=== PATIENT | female | born 1925 | race Caucasian/White ===

== ENCOUNTER 2016-08-18 00:11 | Inpatient (IN) | payer OTHER ==
[2016-08-18] MEDS ORDERED: ONDANSETRON 4 MG/2 ML VIAL ONE (00:33)
[2016-08-18] MEDS ORDERED: ONDANSETRON 4 MG/2 ML VIAL IVP ONE (00:34)
[2016-08-18] MEDS ORDERED: NS 1,000 ML IV ONE (00:34)
[2016-08-18 00:45] LABS: % IMMATURE GRANULYOCYTES 0.9 % (0.0-1.1); ABSOLUTE IMMATURE GRANULOCYTES 0.11 10^3/uL (0.00-0.10); ADD DIFF? NO; ADD MORPH? NO; ADD SCAN? NO; ATYPICAL LYMPHOCYTE FLAG 0 (0-99); FRAGMENT RBC FLAG 0 (0-99); HEMATOCRIT 43.7 % (38.0-47.0); HEMOGLOBIN 14.1 g/dL (12.6-16.3); LEFT SHIFT FLG 10 (0-99); LIPEMIA HEMOLYSIS FLAG 80 (0-99); MEAN CELL HEMOGLOBIN 30.6 pg (27.9-34.1); MEAN CELL HEMOGLOBIN CONCENTR. 32.3 g/dL (32.4-36.7); MEAN CELL VOLUME 94.8 fL (81.5-99.8); MEAN PLATELET VOLUME 10.5 fL (8.7-11.7); PLATELET CLUMPS FLAG 10 (0-99); PLATELET COUNT 243 10^3/uL (150-400); RED BLOOD CELL COUNT 4.61 10^6/uL (4.18-5.33); RED CELL DISTRIBUTION WIDTH 13.1 % (11.5-15.2)
[2016-08-18 00:55] LABS: ALANINE AMINOTRANSFERASE 28 IU/L (9-52); ALKALINE PHOSPHATASE 99 IU/L (38-126); ANION GAP 14 mEq/L (8-16); ASPARTATE AMINOTRANSFERASE 51 IU/L (14-46); BILIRUBIN,TOTAL 1.1 mg/dL (0.1-1.4); BILIRUBIN-CONJUGATED 0.7 mg/dL (0.0-0.5); BILIRUBIN-UNCONJUGATED 0.4 mg/dL (0.0-1.1); CALCIUM 10.5 mg/dL (8.5-10.4); CARBON DIOXIDE 21 mEq/l (22-31); CHLORIDE 102 mEq/L (97-110); GLOMERULAR FILTRATION RATE 52; GLUCOSE 169 mg/dL (70-100); POTASSIUM 4.4 mEq/L (3.5-5.2); SODIUM 137 mEq/L (134-144); SPECIMEN HEMOLYSIS 137; TOTAL PROTEIN 8.3 g/dL (6.3-8.2)
--- NOTE | 2016-08-18 00:59 | CPEKG ---
Heart Rate: 59 RR Interval: 1017 P-R Interval: 180 QRSD Interval: 94 QT Interval: 484 QTC Interval: 480 P [place]: 55 QRS [place]: 24 T Wave [place]: 40 EKG Severity - NORMAL ECG - EKG Impression: SINUS RHYTHM Electronically Signed By: Marcos Hutton 18-Aug-2016 05:57:08
[2016-08-18] MEDS ORDERED: IOPAMIDOL (ISOVUE-300) 100 ML BTL ONE (01:05)
[2016-08-18 01:10] LABS: TROPONIN I 0.124 ng/mL (0-0.034)
--- NOTE | 2016-08-18 01:33 | EDPHY ---
H & P Stated Complaint: at 2200 tonight vomiting/nausea Time Seen by Provider: 08/18/16 00:27 HPI/ROS: Chief Complaint: Vomiting HPI: 89-year-old female with a history of cholecystectomy in the past began vomiting at 10 o'clock this evening. She has vomited 6 or 7 times. No hematemesis. No diarrhea or constipation. Has not been on well recently. No fevers or chills. No chest pain shortness of breath. Has been complaining some mild abdominal discomfort. Family says that she does gotten more confused since vomiting the last couple times. She did not report any urinary symptoms increasing urgency or frequency recently. She has otherwise been in her normal state of health. ROS: 10 point Review of Systems is negative except as noted in the HPI. PMH: Cholecystectomy and hernia repair Medications: None Allergies: No known drug allergies Social History: No smoking, no alcohol, no recreational drug use Family History: non-contributory Physical Exam: Gen: Awake, Alert, No Distress HEENT: Nose: no rhinorrhea Eyes: PERRLA, EOMI Mouth: Moist mucosa Neck: Supple, no JVD Chest: nontender, mild bibasilar crackles Heart: S1, S2 normal, no murmur Abd: Soft, moderate diffuse tenderness worse in the left and right lower and suprapubic region, no guarding Back: no CVA tenderness, no midline tenderness Ext: no edema, non-tender Skin: no rash Neuro: CN II-XII intact, Sensation grossly intact, Strength 5/5 in bilateral upper and lower extremities - Personal History Current Tetanus/Diphtheria Vaccine: Unsure Current Tetanus Diphtheria and Acellular Pertussis (TDAP): Unsure - Medical/Surgical History Hx Asthma: No Hx Chronic Respiratory Disease: No Hx Diabetes: No Hx Cardiac Disease: No Hx Renal Disease: No Hx Cirrhosis: No Hx Alcoholism: No Hx HIV/AIDS: No Hx Splenectomy or Spleen Trauma: No Other PMH: gallbladder removed, - Social History Smoking Status: Former smoker Constitutional: Initial Vital Signs Heart Rate 67 08/18/16 00:15 Respiratory Rate 16 08/18/16 00:15 Blood Pressure 181/79 H 08/18/16 00:15 O2 Sat (%) 97 08/18/16 00:15 O2 Delivery Mode Room Air O2 (L/minute) 2 Allergies/Adverse Reactions: No Known Allergies Allergy (Verified 08/18/16 00:18) Home Medications: Medication Instructions Recorded NK [No Known Home Meds] 08/18/16 Medical Decision Making - Diagnostics EKG Interpretation: ECG time 0056: Sinus rhythm with a rate of 59 carcinoma normal axis, normal intervals, no acute ST or T-wave changes. Impression: Normal ECG. ED Course/Re-evaluation: Troponin elevated. No acute ischemia on her ECG. Patient is feeling improved. CT scan noted, consistent with constipation. No other acute findings at this time. I have discussed with Dr. Epstein, hospitalist. She will admit to her service for further evaluation. - Data Points Laboratory Results: Laboratory Results 08/18/16 00:30 08/18/16 00:30 08/18/16 08/18/16 08/18/16 01:40 00:30 00:30 WBC 11.91 10^3/uL H 10^3/uL (3.80-9.50) RBC 4.61 10^6/uL 10^6/uL (4.18-5.33) Hgb 14.1 g/dL g/dL (12.6-16.3) Hct 43.7 % % (38.0-47.0) MCV 94.8 fL fL (81.5-99.8) MCH 30.6 pg pg (27.9-34.1) MCHC 32.3 g/dL L g/dL (32.4-36.7) RDW 13.1 % % (11.5-15.2) Plt Count 243 10^3/uL 10^3/uL (150-400) MPV 10.5 fL fL (8.7-11.7) Neut % (Auto) 84.0 % H % (39.3-74.2) Lymph % (Auto) 8.9 % L % (15.0-45.0) [place] % (Auto) 5.0 % % (4.5-13.0) Eos % (Auto) 0.7 % % (0.6-7.6) Baso % (Auto) 0.5 % % (0.3-1.7) Nucleat RBC Rel Count 0.0 % % (0.0-0.2) Absolute Neuts (auto) 10.01 10^3/uL H 10^3/uL (1.70-6.50) Absolute Lymphs (auto) 1.06 10^3/uL 10^3/uL (1.00-3.00) Absolute Monos (auto) 0.59 10^3/uL 10^3/uL (0.30-0.80) Absolute Eos (auto) 0.08 10^3/uL 10^3/uL (0.03-0.40) Absolute Basos (auto) 0.06 10^3/uL 10^3/uL (0.02-0.10) Absolute Nucleated RBC 0.00 10^3/uL 10^3/uL (0-0.01) Immature Gran % 0.9 % % (0.0-1.1) Immature Gran # 0.11 10^3/uL H 10^3/uL (0.00-0.10) Sodium 137 mEq/L mEq/L (134-144) Potassium 4.4 mEq/L mEq/L (3.5-5.2) Chloride 102 mEq/L mEq/L (97-110) Carbon Dioxide 21 mEq/l L mEq/l (22-31) Anion Gap 14 mEq/L mEq/L (8-16) BUN 20 mg/dL mg/dL (7-23) Creatinine 1.0 mg/dL mg/dL (0.6-1.0) Estimated GFR 52 Glucose 169 mg/dL H mg/dL (70-100) Calcium 10.5 mg/dL H mg/dL (8.5-10.4) Total Bilirubin 1.1 mg/dL mg/dL (0.1-1.4) Conjugated Bilirubin 0.7 mg/dL H mg/dL (0.0-0.5) Unconjugated Bilirubin 0.4 mg/dL mg/dL (0.0-1.1) AST 51 IU/L H IU/L (14-46) ALT 28 IU/L IU/L (9-52) Alkaline Phosphatase 99 IU/L IU/L (38-126) Troponin I 0.124 ng/mL H ng/mL (0-0.034) Total Protein 8.3 g/dL H g/dL (6.3-8.2) Albumin 5.0 g/dL g/dL (3.5-5.0) Lipase 151.0 IU/L IU/L (23-300) Specimen Hemolysis 137 Urine Color PALE YELLOW Urine Appearance CLEAR Urine pH 8.0 H (5.0-7.5) Ur Specific [place] 1.016 (1.002-1.030) Urine Protein NEGATIVE (NEGATIVE) Urine Ketones NEGATIVE (NEGATIVE) Urine Blood NEGATIVE (NEGATIVE) Urine Nitrate NEGATIVE (NEGATIVE) Urine Bilirubin NEGATIVE (NEGATIVE) Urine Urobilinogen NEGATIVE EU EU (0.2-1.0) Ur Leukocyte Esterase 1+ H (NEGATIVE) Urine RBC 15-25 /hpf H /hpf (0-3) Urine WBC 1-3 /hpf /hpf (0-3) Ur Epithelial Cells Not Reported Urine Glucose NEGATIVE (NEGATIVE) Medications Given: Discontinued Medications Sodium Chloride (Ns) 1,000 mls @ 0 mls/hr IV ONCE ONE PRN Reason: Wide Open Stop: 08/18/16 00:35 Last Admin: 08/18/16 00:40 Dose: 1,000 mls Ondansetron HCl (Zofran) 4 mg IVP EDNOW ONE Stop: 08/18/16 00:35 Last Admin: 08/18/16 00:41 Dose: 4 mg Departure - Departure Disposition: [facility] Inpatient Acute Clinical Impression: Vomiting, Constipation Condition: Fair
[2016-08-18 02:24] LABS: COLOR PALE YELLOW; LEUKOCYTE ESTERASE,URINE 1+ (NEGATIVE); NITRITE,URINE NEGATIVE (NEGATIVE)
[2016-08-18] MEDS ORDERED: ONDANSETRON DISINTEGRATING 4 MG TAB PO PRN (02:28)
[2016-08-18 02:30] LABS: RBC,URINE 15-25 /hpf (0-3)
[2016-08-18] MEDS ORDERED: ASPIRIN 325 MG TAB PO ONE (02:33)
[2016-08-18] MEDS ORDERED: MAGNESIUM HYDROXIDE 30 ML UDCUP PO PRN (02:34)
[2016-08-18 06:26] LABS: % IMMATURE GRANULYOCYTES 0.5 % (0.0-1.1); ABSOLUTE IMMATURE GRANULOCYTES 0.06 10^3/uL (0.00-0.10); ADD DIFF? NO; ADD MORPH? NO; ADD SCAN? NO; ATYPICAL LYMPHOCYTE FLAG 0 (0-99); FRAGMENT RBC FLAG 0 (0-99); HEMATOCRIT 39.9 % (38.0-47.0); HEMOGLOBIN 13.1 g/dL (12.6-16.3); LEFT SHIFT FLG 0 (0-99); LIPEMIA HEMOLYSIS FLAG 80 (0-99); MEAN CELL HEMOGLOBIN CONCENTR. 32.8 g/dL (32.4-36.7); MEAN CELL VOLUME 94.5 fL (81.5-99.8); MEAN PLATELET VOLUME 10.6 fL (8.7-11.7); PLATELET CLUMPS FLAG 40 (0-99); PLATELET COUNT 211 10^3/uL (150-400); RED BLOOD CELL COUNT 4.22 10^6/uL (4.18-5.33); RED CELL DISTRIBUTION WIDTH 13.2 % (11.5-15.2)
[2016-08-18 06:53] LABS: INR 0.97 (0.83-1.16); PROTIME(PATIENT) 12.8 SEC (12.0-15.0)
[2016-08-18 06:54] LABS: APTT 23.2 SEC (23.0-38.0)
[2016-08-18 07:06] LABS: ALANINE AMINOTRANSFERASE 29 IU/L (9-52); ALBUMIN 4.3 g/dL (3.5-5.0); ALKALINE PHOSPHATASE 76 IU/L (38-126); ANION GAP 12 mEq/L (8-16); ASPARTATE AMINOTRANSFERASE 33 IU/L (14-46); BILIRUBIN,TOTAL 0.7 mg/dL (0.1-1.4); CALCIUM 9.8 mg/dL (8.5-10.4); CARBON DIOXIDE 25 mEq/l (22-31); CHLORIDE 102 mEq/L (97-110); CREATININE 0.9 mg/dL (0.6-1.0); GLOMERULAR FILTRATION RATE 59; GLUCOSE 141 mg/dL (70-100); MAGNESIUM 1.9 mg/dL (1.6-2.3); POTASSIUM 3.8 mEq/L (3.5-5.2); SODIUM 139 mEq/L (134-144); TOTAL PROTEIN 7.4 g/dL (6.3-8.2)
[2016-08-18 07:17] LABS: CREATINE KINASE-MB FRACTION 2.65 ng/mL (0-3.19); TROPONIN I 0.299 ng/mL (0-0.034)
[2016-08-18] MEDS ORDERED: ASPIRIN EC 325 MG TAB PO ONE (07:19)
--- NOTE | 2016-08-18 07:37 | PDGENHP ---
History and Physical - Chief Complaint abdominal pain, nausea - History of Present Illness Patient is an 89 year old female with no significant medical history who presents to the ED with complaint of abdominal pain and nausea. Patient states she was in her usual state of health throughout the day on 08/17, ate dinner without event. At about 10 she had gone to her bedroom to go to the sleep when she began to experience acute onset nausea. She called out for her and when he arrived in the room, she had begun vomiting, at least 5-6 episodes (nb/ nb). There was no associated diarrhea, but she was complaining of lower abdominal pain. She denies any chest pain/pressure, shortness of breath, palpitations or dizziness. She denies any previous cardiac history. On arrival to the ED she was afebrile and hemodynamically stable, although hypoxic on room air. Labs revealed mild leukocytosis, hyperglycemia and positive troponin (0.124). Initial EKG did not show any obvious ischemic changes. CT abd/pelvis was obtained to evaluate her abdominal pain and revealed significant constipation, but no obstruction or other abnormality. She was then admitted for further management. History Information - Allergies/Home Medication List Allergies/Adverse Reactions: No Known Allergies Allergy (Verified 08/18/16 00:18) Home Medications: NK [No Known Home Meds] 08/18/16 [Last Taken Unknown] I have personally reviewed and updated: family history, medical history, social history, surgical history - Past Medical History Additional medical history: psoriasis - Surgical History Additional surgical history: cholecystectomy. L inguinal hernia repair - Family History Positive for: non-pertinent - Social History Smoking Status: Never smoked Alcohol Use: None Drug Use: None Additional social history: Patient lives with her , is independent in all ADLs at baseline Review of Systems ROS: 10pt was reviewed & negative except for what was stated in HPI & below Physical Exam Temp Pulse Resp BP Pulse Ox 36.8 C 68 18 135/67 H 96 08/18/16 06:00 08/18/16 06:00 08/18/16 06:00 08/18/16 06:00 08/18/16 06:00 O2 (L/minute) 2 Constitutional: no apparent distress, appears nourished, not in pain Eyes: PERRL, anicteric sclera, EOMI Ears, Nose, Mouth, Throat: moist mucous membranes, hearing normal, ears appear normal, no oral mucosal ulcers Cardiovascular: regular rate and rhythym, no murmur, rub, or gallop, pulses symmetric bilaterally, No JVD, No edema Peripheral Pulses: 2+: dorsalis-pedis (R), dorsalis-pedis (L) Respiratory: no respiratory distress, no rales or rhonchi, clear to auscultation Gastrointestinal: normoactive bowel sounds, soft, non-tender abdomen, no palpable masses, tenderness (suprapubic/LLQ tenderness), distension (mild distention), No guarding, No rebound Genitourinary: no bladder fullness, no bladder tenderness Skin: warm, normal color, no rashes or abrasions, no fluctuance, no induration, No mottled Musculoskeletal: full muscle strength, no muscle tenderness, normal joint ROM, no joint effusions Neurologic: sensation intact bilaterally, CN II-XII Intact, No weakness, No numbness, No facial droop Psychiatric: interacting appropriately, not anxious, not encephalopathic, thought process linear, other (lethargic but arousable) Lab Data & Imaging Review 08/18/16 06:00 08/18/16 06:00 WBC 11.80 10^3/uL (3.80-9.50) H 08/18/16 06:00 RBC 4.22 10^6/uL (4.18-5.33) 08/18/16 06:00 Hgb 13.1 g/dL (12.6-16.3) 08/18/16 06:00 Hct 39.9 % (38.0-47.0) 08/18/16 06:00 MCV 94.5 fL (81.5-99.8) 08/18/16 06:00 MCH 31.0 pg (27.9-34.1) 08/18/16 06:00 MCHC 32.8 g/dL (32.4-36.7) 08/18/16 06:00 RDW 13.2 % (11.5-15.2) 08/18/16 06:00 Plt Count 211 10^3/uL (150-400) 08/18/16 06:00 MPV 10.6 fL (8.7-11.7) 08/18/16 06:00 Neut % (Auto) 90.8 % (39.3-74.2) H 08/18/16 06:00 Lymph % (Auto) 5.9 % (15.0-45.0) L 08/18/16 06:00 [place] % (Auto) 2.5 % (4.5-13.0) L 08/18/16 06:00 Eos % (Auto) 0.0 % (0.6-7.6) L 08/18/16 06:00 Baso % (Auto) 0.3 % (0.3-1.7) 08/18/16 06:00 Nucleat RBC Rel Count 0.0 % (0.0-0.2) 08/18/16 06:00 Absolute Neuts (auto) 10.72 10^3/uL (1.70-6.50) H 08/18/16 06:00 Absolute Lymphs (auto) 0.70 10^3/uL (1.00-3.00) L 08/18/16 06:00 Absolute Monos (auto) 0.29 10^3/uL (0.30-0.80) L 08/18/16 06:00 Absolute Eos (auto) 0.00 10^3/uL (0.03-0.40) L 08/18/16 06:00 Absolute Basos (auto) 0.03 10^3/uL (0.02-0.10) 08/18/16 06:00 Absolute Nucleated RBC 0.00 10^3/uL (0-0.01) 08/18/16 06:00 Immature Gran % 0.5 % (0.0-1.1) 08/18/16 06:00 Immature Gran # 0.06 10^3/uL (0.00-0.10) 08/18/16 06:00 PT 12.8 SEC (12.0-15.0) 08/18/16 06:00 INR 0.97 (0.83-1.16) 08/18/16 06:00 APTT 23.2 SEC (23.0-38.0) 08/18/16 06:00 Sodium 139 mEq/L (134-144) 08/18/16 06:00 Potassium 3.8 mEq/L (3.5-5.2) 08/18/16 06:00 Chloride 102 mEq/L (97-110) 08/18/16 06:00 Carbon Dioxide 25 mEq/l (22-31) 08/18/16 06:00 Anion Gap 12 mEq/L (8-16) 08/18/16 06:00 BUN 15 mg/dL (7-23) 08/18/16 06:00 Creatinine 0.9 mg/dL (0.6-1.0) 08/18/16 06:00 Estimated GFR 59 08/18/16 06:00 Glucose 141 mg/dL (70-100) H 08/18/16 06:00 Calcium 9.8 mg/dL (8.5-10.4) 08/18/16 06:00 Magnesium 1.9 mg/dL (1.6-2.3) 08/18/16 06:00 Total Bilirubin 0.7 mg/dL (0.1-1.4) 08/18/16 06:00 Conjugated Bilirubin 0.7 mg/dL (0.0-0.5) H 08/18/16 00:30 Unconjugated Bilirubin 0.4 mg/dL (0.0-1.1) 08/18/16 00:30 AST 33 IU/L (14-46) 08/18/16 06:00 ALT 29 IU/L (9-52) 08/18/16 06:00 Alkaline Phosphatase 76 IU/L (38-126) 08/18/16 06:00 CK-MB (CK-2) Fraction 2.65 ng/mL (0-3.19) 08/18/16 06:00 Troponin I 0.299 ng/mL (0-0.034) H 08/18/16 06:00 NT-Pro-B Natriuret Pep 1260 pg/mL (0-450) H 08/18/16 06:00 Total Protein 7.4 g/dL (6.3-8.2) 08/18/16 06:00 Albumin 4.3 g/dL (3.5-5.0) 08/18/16 06:00 Lipase 151.0 IU/L (23-300) 08/18/16 00:30 Specimen Hemolysis 137 08/18/16 00:30 Urine Color PALE YELLOW 08/18/16 01:40 Urine Appearance CLEAR 08/18/16 01:40 Urine pH 8.0 (5.0-7.5) H 08/18/16 01:40 Ur Specific [place] 1.016 (1.002-1.030) 08/18/16 01:40 Urine Protein NEGATIVE (NEGATIVE) 08/18/16 01:40 Urine Ketones NEGATIVE (NEGATIVE) 08/18/16 01:40 Urine Blood NEGATIVE (NEGATIVE) 08/18/16 01:40 Urine Nitrate NEGATIVE (NEGATIVE) 08/18/16 01:40 Urine Bilirubin NEGATIVE (NEGATIVE) 08/18/16 01:40 Urine Urobilinogen NEGATIVE EU (0.2-1.0) 08/18/16 01:40 Ur Leukocyte Esterase 1+ (NEGATIVE) H 08/18/16 01:40 Urine RBC 15-25 /hpf (0-3) H 08/18/16 01:40 Urine WBC 1-3 /hpf (0-3) 08/18/16 01:40 Ur Epithelial Cells Not Reported 08/18/16 01:40 Urine Glucose NEGATIVE (NEGATIVE) 08/18/16 01:40 Visualized and Interpreted Chest x-ray results: Yes Chest X-Ray results: no infiltrate Visualized and Interpreted imaging results: Yes Interpretation: CT abd/pelvis: fecal impaction with constipation; no appendicitis Visualized and Interpreted EKG results: Yes EKG Interpretation: Positive for: normal sinsus rhythm (no obvious st t wave abnormalitites) Assessment & Plan Assessment: Patient is a 89 year old female with no significant previous pmh who presents to the ED with acute onset nausea, vomiting and abdominal pain. ED evaluation reveals fecal impaction with evidence of constipation, and also elevated troponin with nonischemic initial EKG. Plan: # elevated troponin Patient denies any cardiac symptoms associated with presentation, however, nausea/vomiting may be an atypical presentation of ACS in this elderly F patient. Initial EKG is nonischemic appearing, however repeat this AM does show lateral ST depressions. Repeat troponin also uptrending. This is consistent with NSTEMI. Aspirin given, will check lipid panel, TTE and consult cardiology. # nausea, vomiting, constipation CT does not show obstruction, although full read is pending. She has not had any repeat episodes of vomiting since arrival to the ED. Will initiate bowel protocol with enema, the [place]/oral laxatives. # acute hypoxic respiratory failure O2 saturations drop into the 80% range when on room air, improve to high 90% with only 2 L NC. ETiology of this is not clear, given elevated BNP may be acute pulmonary edema related to ACS, although CXR is not convincing. Consider ABG. Will continue to monitor. # dispo: admit to observation for nausea/vomiting # gen: NPO DVT ppx: lovenox if staying > 24 hours Full code
--- NOTE | 2016-08-18 08:31 | CPEKG ---
Heart Rate: 65 RR Interval: 923 P-R Interval: 164 QRSD Interval: 86 QT Interval: 456 QTC Interval: 475 P [place]: 80 QRS [place]: 29 T Wave [place]: 43 EKG Severity - ABNORMAL ECG - EKG Impression: SINUS RHYTHM EKG Impression: PROBABLE LEFT ATRIAL ABNORMALITY EKG Impression: PROBABLE LEFT VENTRICULAR HYPERTROPHY Electronically Signed By: Bimal Diaz 18-Aug-2016 10:02:31
[2016-08-18] MEDS ORDERED: ENOXAPARIN 30 MG/0.3 ML SYR SC SCH (09:00)
[2016-08-18] MEDS ORDERED: ASPIRIN 81 MG CHEWABLE TAB PO SCH (09:00)
[2016-08-18] MEDS: BISACODYL 10 MG SUPP PR SCH (09:50)
--- NOTE | 2016-08-18 11:58 | HOSPPROG ---
Hospitalist Progress Note Assessment/Plan: 89-year-old healthy woman is admitted with acute nausea vomiting altered mental status. Evaluation has included blood work and a CT scan of the abdomen which have been fairly unremarkable. This morning she is more confused than baseline. Patient new to me, chart reviewed # nausea vomiting abdominal discomfort. Patient exam is fairly unremarkable, blood work unrevealing. She has not had any further emesis. Will continue to follow her and add some IV fluids for supportive care let her eat clear liquids and gently advance her diet. I am not sure if this is a viral syndrome or less likely anginal equivalent. * IV fluids * Advance diet slowly * Follow her symptoms # elevated troponin, EKG personally reviewed and noted to be in sinus rhythm with some minimal ST depressions inferior laterally. Will review echo. * Cycle troponins until decreasing * Repeat EKG in the morning * Review echo results * Could consider outpatient stress test versus inpatient stress test depending on her clinical course. # altered mental status, unclear etiology although she is dehydrated and may be related to her acute illness. She does not appear to be acutely infected with a bacterial illness. Check blood cultures, repeat urinalysis and follow CBC. * Check noncontrast head CT # elevated blood sugar, likely mild diabetes or pre diabetes. Will check hemoglobin A1c continue to follow fasting blood sugars. # DVT prophylaxis at low-molecular weight heparin. Subjective: Patient without complaints, not oriented. Obeys simple commands the only Objective: Vital Signs Temp Pulse Resp BP Pulse Ox 37.5 C 71 17 132/68 H 99 08/18/16 10:52 08/18/16 10:52 08/18/16 10:52 08/18/16 10:52 08/18/16 10:52 Laboratory Results 08/18/16 06:00 08/18/16 06:00 PT 12.8 SEC (12.0-15.0) 08/18/16 06:00 INR 0.97 (0.83-1.16) 08/18/16 06:00 - Physical Exam Constitutional: not in pain, chronically ill appearing, uncomfortable Eyes: PERRL, anicteric sclera, EOMI Ears, Nose, Mouth, Throat: dry mucous membranes, hard of hearing Cardiovascular: regular rate and rhythym, no murmur, rub, or gallop, pulses symmetric bilaterally, No edema Respiratory: no respiratory distress, inspiratory crackles (bases), No expiratory wheeze, No bronchial breath sounds Gastrointestinal: normoactive bowel sounds, soft, non-tender abdomen, no palpable masses, No guarding, No rebound Neurologic: sensation intact bilaterally, weakness, No AAOx3, No facial droop ICD10 Worksheet Patient Problems: Problems Problem Status Onset Vomiting Acute Constipation Acute
--- NOTE | 2016-08-18 13:13 | ECHO ---
[id number] + + [id number] : : [place] [id number] : : [phone] + + Adult Echocardiographic Report + ------+ :Name: MOOKIE ENCINAS Sylvesterburke Date: 08/18/2016 11:32 AM : : Hospital Admission [id number] 1925 Gender: Female Height: 61 in : :Age: 89 yrs Race: WH Weight: 125 lb : :Reason For Study: Elevated troponin : : BSA: 1.5 meters 2 : + ------+ MMode/2D Measurements \T\ Calculations IVSd: 0.77 cm LVIDd: 4.2 cm FS: 49.7 % Ao root diam: 3.4 cm LVPWd: 0.68 cm LVIDs: 2.1 cm EDV(Teich): 79.7 ml LA dimension: 3.4 cm ESV(Teich): 14.8 ml EF(Teich): 81.4 % Normal Measurement Values: + + :LVIDd (3.5-5.7cm) IVSd (0.6-1.1cm) LVPWd (0.6-1.1cm) Aortic Root (2.0-3.7cm)Left Atrium (1.5-4.0cm): :LV Vol(d) (76-115ml) LV Vol(s) (29-48ml) Ejec Fraction (50-65%)PV Vince (0.6- 1.2m/s) TV Vince (0.4-1.0m/s) : :MV E Vince (0.8-1.0m/s)MV A Vince (0.3-1.0m/s)LVOT Vince (0.7-1.2m/s) Asc Ao Vince ( 0.9-1.8m/s) : + + Doppler Measurements \T\ Calculations MV E max vince: 59.2 cm/sec Ao V2 max: 135.7 cm/sec TR max vince: 256.5 cm/sec MV A max vince: 113.0 cm/sec Ao max P.4 mmHg TR max P.3 mmHg MV E/A: 0.52 RAP systole: 5.0 mmHg RVSP(TR): 31.3 mmHg Left Ventricle The left ventricle is normal in size. There is mild concentric left ventricular hypertrophy. The left ventricle is hyperdynamic. Ejection Fraction = 70-75%. There is Doppler evidence for diastolic dysfunction. No regional wall motion abnormalities noted. Right Ventricle The right ventricle is normal in size and function. Atria The left atrial size is normal. Right atrial size is normal. Mitral Valve The mitral valve is normal in structure and function. There is mild mitral regurgitation. Tricuspid Valve Normal tricuspid valve. There is trace tricuspid regurgitation. Right ventricular systolic pressure is normal. Aortic Valve The aortic valve is trileaflet. The aortic valve opens well. There is no aortic stenosis. There is no aortic insufficiency. Pulmonic Valve The pulmonic valve is not well visualized. There is no pulmonic valvular regurgitation. Great Vessels The aortic root is normal size. Pericardium/Pleural There is no pericardial effusion. There is a fat pad seen. Conclusion A complete two-dimensional transthoracic echocardiogram was performed (2D, M-mode, Doppler and color flow Doppler). (1) Left ventricular systolic ejection fraction was normal (70%) - hyperdynamic wall motion (2) Mild concentric left ventricular hypertrophy (3) Diastolic dysfunction was present (4) Normal right ventricular size and function (5) Normal atrial dimensions (6) Mild mitral regurgitation (7) Trileaflet aortic valve without sclerosis or insufficiency (8) Physiologic tricuspid regurgitation - RVSP was within normal limits (9) Poor visualization of the pulmonic valve (10) No comparison echocardiograms Final Reading Physician: Feli Peña signed on 08/18/2016 01:12 PM Ordering Physician: Aileen Epstein Performed By: Lyudmila Russ, LOPEZ
[2016-08-18] MEDS: NS 1,000 ML IV SCH (13:27)
[2016-08-18] MEDS ORDERED: IOPAMIDOL (ISOVUE 370) 100 ML BTL IV ONE (15:08)
[2016-08-18] MEDS ORDERED: fentaNYL 100 MCG/2 ML INJ ONE (15:55)
[2016-08-18] MEDS ORDERED: MIDAZOLAM 2 MG/2 ML VIAL ONE (15:55)
[2016-08-18] MEDS: niCARdipine/NACL 200 ML IV SCH ×2 (17:19→20:19)
--- NOTE | 2016-08-18 17:25 | GHP ---
[f rep st] HISTORY AND PHYSICAL DATE OF ADMISSION: 08/18/2016 CHIEF COMPLAINT: Altered mental status. HISTORY OF PRESENT ILLNESS: This is an 89-year-old, very healthy female, walks several miles a day, is perfectly independent, and does not have much in the way of significant past medical history, salas boyd apparently last night, grabbed her head with sudden onset of severe headache, nausea, vomiting. S he then had decline in her mental status. Her family brought her into the emergency department. At the time of the onset of her headache, she was also complaining of lower abdominal pain. She came into the emergency department stating she had no chest pain or pressure, shortness of breath, palpit ations, or dizziness. She was afebrile, hemodynamically stable although hypoxic on room air, and he r labs revealed a mild leukocytosis, hyperglycemia, and positive troponin. CT abdomen and pelvis re vealed constipation but no obstruction, and then was admitted for further management. As she had a significant decline in her mental status, they performed a head CT, which revealed diffuse aneurysma l subarachnoid hemorrhage with a focus near the anterior communicating artery and along the left mes ial frontal lobe with hydrocephalus and blood in the 4th ventricle consistent with Patel grade 4 he morrhage. We happened to be at the hospital. We were called to her bedside where she was somnolent , would answer that she was in the hospital, would give me her name, but could not answer other ques tions, and she required significant stimulation to be arousable enough to answer some questions. Tavon silvestre was not able to answer all questions. She did state she had a significant headache, no nausea. PAST MEDICAL HISTORY: Positive for psoriasis. PAST SURGICAL HISTORY: Cholecystectomy and a left inguinal hernia repair. FAMILY HISTORY: She has no family history of aneurysmal subarachnoid hemorrhage. SOCIAL HISTORY: She does not smoke. She does not use alcohol. She does not use illicit drugs. Tavon silvestre lives with her , is independent in all ADLs at baseline. ALLERGIES: She has no known drug allergies. HOME MEDICATIONS: She takes no home medications. She was given an aspirin when her mental status c hanged. REVIEW OF SYSTEMS: I was unable to perform a review of systems as the patient was obtunded and not answering all questions appropriately. PHYSICAL EXAMINATION: VITAL SIGNS: Blood pressure was 155/57, heart rate was 69, respiratory rate was 16, saturating 98% on 2 L nasal cannula. Temp was 37.5 degrees Celsius. LABORATORY DATA: White blood cell count was 11.8, hemoglobin 13.1, hematocrit 39.9, platelets 211. PT was 12.8, INR 0.97, PTT 23.2. Sodium 139, potassium 3.8, chloride 102, CO2 of 25, BUN 15, creat inine 0.9, glucose 141. Troponins were elevated; most recent was 0.298 with a BNP of 1260. Urine w as 1+ for leukocyte esterase and 15-25 red cells, 1-[address] of the head reveals diffuse subara chnoid hemorrhage, somewhat eccentric toward the left side of the frontal region with blood noted in the lateral ventricles layering the occipital horns posteriorly and in the 4th ventricle. There is dilation of the lateral and 3rd ventricles and effacement of the cortical sulci suggesting raised i ntracranial pressure. No subfalcine herniation. Effacement of the perimesencephalic cisterns sugge sting an element of downward herniation. No focal mass effect. The focus of the hemorrhage appears to be in the left frontal region consistent with an ACom aneurysm. CT angio was ordered stat. Pat ient had been given aspirin so platelets were ordered stat. 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 I had a long discussion with her family incl uding her and her son regarding treatment. They wish to be aggressive with her treatment to include ventriculostomy and CT angiogram and then, if necessary angiogram and possible coiling of a n aneurysm with Dr. Jain in the morning. I discussed the risks, benefits, and alternatives, and th ey did give consent for the ventriculostomy. Platelets were typed and crossed and brought stat to t he patient's bedside as she was transferred down to the ICU where a ventriculostomy was placed. Ple ase see the dictation for ventriculostomy for the procedure note. At this point in time, we will ma intain her in the ICU with systolics 120 or less, place her on nimodipine 60 mg p.o. q.4 hours for v asospasm, treat her pain very minimally with mild fentanyl, maintain the open at 5, and c all for any change in neurologic status. Our plan is to keep her n.p.o. overnight and likely take h er to the angio suite in the morning for a diagnostic angiogram and likely definitive treatment. Th is was discussed with Dr. Jain who is available to do this. Her family was informed. Please call with any changes in neurologic status. /[id number]/MODL
--- NOTE | 2016-08-18 17:40 | GPN ---
[f rep st] PROCEDURE NOTE PREOPERATIVE DIAGNOSES: 1. Hydrocephalus. 2. Altered mental status. 3. Aneurysmal subarachnoid hemorrhage. POSTOPERATIVE DIAGNOSES: 1. Hydrocephalus. 2. Altered mental status. 3. Aneurysmal subarachnoid hemorrhage. PROCEDURE: Right frontal ventriculostomy at bedside. SPRAY BOOTH OPERATOR: Acosta Casey PA-C ESTIMATED BLOOD LOSS: 10 mL. FLUIDS: None recorded. URINE OUTPUT: None recorded. DRAINS: 1 ventricular drain to a Boykin bag. SPECIMENS: None. COMPLICATIONS: None. INDICATIONS: This is an 89-year-old female with aneurysmal subarachnoid hemorrhage, Ken and Dye g rade 4, with hydrocephalus. DESCRIPTION OF PROCEDURE: The patient was given platelets just immediately prior to cutting skin. We clipped her hair with the OR clippers and measured Jak point at 10 cm posterior to the glabell a, 3.5 cm lateral to midline at midpupillary line. She was prepped and draped in the usual sterile fashion. Incision was anesthetized with 1% lidocaine with epinephrine. Incision was made with an 1 1 blade, and using the twist drill, twist drill craniostomy was performed. We then opened the dura sharply and placed a ventricular catheter in a single pass. The angle of the external auditory meat us and medial canthus to 8 cm at the skin with egress of relatively low pressure, approximately 10 c m of water. Blood-tinged CSF. This was tunneled out laterally, and we verified the ventriculostomy still was functional. The drain was sutured in, and then a drain-relief loop was placed with stapl es. The skin incision was closed with isma. It was connected to the Boykin bag, and we did correa sduce an ICP of 10 cm of water opening pressure. The wound was dressed, and the patient tolerated p rocedure well, no complications. We will keep it open at 5, and nursing to call for ICP sustained g reater than 17 for greater than 5 minutes. /[id number]/MODL
[2016-08-18] MEDS: niMODipine 30 MG CAP PO SCH ×2 (17:45→22:01)
--- NOTE | 2016-08-18 17:55 | GCON ---
[f rep st] CONSULTATION PULMONARY CRITICAL CARE CONSULTATION DATE OF CONSULTATION: 08/18/2016 REASON FOR CONSULTATION: Intensive care unit evaluation and medical management of a subarachnoid he morrhage, secondary to a ruptured aneurysm. HISTORY: The patient is an 89-year-old, very healthy woman, who was admitted early this morning wit h nausea. Symptoms started to develop last night. She had associated vomiting, with some abdominal pain. There is no history of aspiration. She was brought to the emergency department. CT scan of the abdomen was unremarkable. A CT scan of the head was subsequently ordered, secondary to increas ing confusion and agitation. This showed a diffuse subarachnoid hemorrhage. An anterior communicat ing artery aneurysm is suspected. The patient was transferred to the intensive care unit. A ventri culostomy has been urgently placed by Dr. Young. She is being evaluated by Dr. Jain for aneurysm clipping/coiling/definitive treatment in the a.m. PAST MEDICAL HISTORY: Unremarkable for significant medical problems. MEDICATIONS: She takes no regular medications, only vitamins and calcium. SOCIAL HISTORY: The patient is , with a very supportive . They have lived in the [facility]. 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 The patient and he r have travelled relatively extensively over the last number of years. FAMILY HISTORY: Noncontributory. REVIEW OF SYSTEMS: Unobtainable. PHYSICAL EXAMINATION: GENERAL: Reveals an elderly woman, who is mildly agitated, lying in bed. Th e ventriculostomy drain is in place. VITAL SIGNS: Blood pressure is currently 150/60. Heart rate is 65, with sinus rhythm on the monitor. Respiratory rate is 16. On 2 L, saturations are 97%. She is afebrile. HEENT: Remarkable for equal pupils. Mucous membranes are somewhat dry. There is no jugular venous distention. No thyromegaly or lymphadenopathy. CHEST: Clear. HEART: Regular in rate and rhythm. There is a soft systolic murmur, no gallops. ABDOMEN: Soft, nontender. Bowel so unds are present. There is no organomegaly. EXTREMITIES: Unremarkable for edema, cords or tendern ess. NEUROLOGIC: Nonfocal. She is somewhat confused, but able to answer most questions appropriat masha. She moves all extremities equally. LABORATORY DATA: Database/radiologic studies are as outlined above. White blood cell count is 11,800, hematocrit 40, platelets are 211,000. PT and PTT on admission wer e normal. Chemistries are within normal limits. Troponins are nonspecifically elevated. TSH is no rmal. Liver function studies are normal. Urinalysis on admission showed a few red cells, otherwise normal. ASSESSMENT: Subarachnoid hemorrhage. An anterior communicating artery aneurysm is suspected. Niru cates, CT angiogram did not show definite evidence of an aneurysm. She has been seen by Neurosurgery. A ventriculostomy has been placed. She is on nimodipine for spasm. Nicardipine is ordered for bl ood pressure control if needed. Antiemetics and pain medications are available if needed. The adela ent did receive 1 dose of aspirin when neurologic symptoms develop. Platelets have subsequently bee n given to reverse the antiplatelet effect of aspirin. The patient is currently stable. Definitive treatment is being considered for tomorrow. PLAN AND RECOMMENDATIONS: The patient will be kept in the intensive care unit. Neurologic status w ill be closely monitored. Blood pressure will be monitored and controlled, with a nicardipine drip started for systolic blood pressures greater than 140. The patient will be kept at bedrest and n.p. o. Laboratory will be followed. Further plans and recommendations will be made based on her progress over the next 12-24 hours. /[id number]/MODL
[2016-08-18] MEDS ORDERED: fentaNYL 100 MCG/2 ML INJ IVP ONE (18:00)
[2016-08-18] MEDS ORDERED: MIDAZOLAM 10 MG/2 ML VIAL IVP ONE (18:00)
[2016-08-18] MEDS: CALCIUM CARBONATE 500 MG TAB PO SCH (21:27)
[2016-08-18] MEDS: HYDROCODONE/APAP 5/325 TAB PO PRN (23:07)
[2016-08-19 00:26] LABS: HEMOGLOBIN A1C 5.2 % (4.0-6.0)
[2016-08-19] MEDS: NS 1,000 ML IV SCH ×2 (01:07→10:14)
[2016-08-19] MEDS: niCARdipine/NACL 200 ML IV SCH ×2 (01:09→07:12)
[2016-08-19] MEDS: niMODipine 30 MG CAP PO SCH ×6 (02:30→22:31)
[2016-08-19 05:38] LABS: INR 1.06 (0.83-1.16); PROTIME(PATIENT) 13.7 SEC (12.0-15.0)
[2016-08-19 05:39] LABS: APTT 26.8 SEC (23.0-38.0)
[2016-08-19 05:42] LABS: % IMMATURE GRANULYOCYTES 0.4 % (0.0-1.1); ABSOLUTE IMMATURE GRANULOCYTES 0.04 10^3/uL (0.00-0.10); ADD DIFF? NO; ADD MORPH? NO; ADD SCAN? NO; ATYPICAL LYMPHOCYTE FLAG 0 (0-99); FRAGMENT RBC FLAG 0 (0-99); HEMATOCRIT 36.8 % (38.0-47.0); HEMOGLOBIN 11.9 g/dL (12.6-16.3); LEFT SHIFT FLG 0 (0-99); LIPEMIA HEMOLYSIS FLAG 80 (0-99); MEAN CELL HEMOGLOBIN CONCENTR. 32.3 g/dL (32.4-36.7); MEAN CELL VOLUME 95.8 fL (81.5-99.8); MEAN PLATELET VOLUME 10.6 fL (8.7-11.7); PLATELET CLUMPS FLAG 0 (0-99); PLATELET COUNT 224 10^3/uL (150-400); RED BLOOD CELL COUNT 3.84 10^6/uL (4.18-5.33); RED CELL DISTRIBUTION WIDTH 13.3 % (11.5-15.2)
[2016-08-19] MEDS: ONDANSETRON 4 MG/2 ML VIAL IVP PRN (06:32)
[2016-08-19 06:40] LABS: ALANINE AMINOTRANSFERASE 32 IU/L (9-52); ALBUMIN 3.9 g/dL (3.5-5.0); ALKALINE PHOSPHATASE 48 IU/L (38-126); ANION GAP 8 mEq/L (8-16); ASPARTATE AMINOTRANSFERASE 39 IU/L (14-46); BILIRUBIN,TOTAL 1.1 mg/dL (0.1-1.4); CALCIUM 8.5 mg/dL (8.5-10.4); CARBON DIOXIDE 24 mEq/l (22-31); CHLORIDE 108 mEq/L (97-110); CREATININE 0.7 mg/dL (0.6-1.0); GLOMERULAR FILTRATION RATE > 60; GLUCOSE 128 mg/dL (70-100); POTASSIUM 3.9 mEq/L (3.5-5.2); SODIUM 140 mEq/L (134-144); TOTAL PROTEIN 6.9 g/dL (6.3-8.2)
[2016-08-19 06:51] LABS: TROPONIN I 0.117 ng/mL (0-0.034)
[2016-08-19] MEDS ORDERED: OMEGA-3 FATTY ACIDS 1,000 MG CAP PO SCH (09:00)
--- NOTE | 2016-08-19 09:45 | HOSPPROG ---
Hospitalist Progress Note Assessment/Plan: 89-year-old healthy woman is admitted with acute nausea vomiting altered mental status. Evaluation has included blood work and a CT scan of the abdomen which have been fairly unremarkable. 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 She underwent ventriculostomy on 08/18 with significant improvement in her mental status. She is to undergo a aneurysmal clipping/coiling by Dr. Jain today # subarachnoid hemorrhage: Presenting with nausea vomiting and altered mental status. Appreciate neurosurgery consult. * Status post ventriculostomy on 08/18 * To OR today for aneurysm * Keep systolic blood pressure between 100 and 120, on IV nicardipine as needed # elevated troponin secondary to subarachnoid hemorrhage no further workup indicated # elevated blood sugar, likely mild diabetes or pre diabetes. Will check hemoglobin A1c continue to follow fasting blood sugars. # DVT prophylaxis SCDs and Josh hose, not indicated due to a subarachnoid hemorrhage Subjective: Patient much more alert today denies any headache. Objective: Vital Signs Temp Pulse Resp BP Pulse Ox 37.5 C 59 L 14 93/61 L 95 08/19/16 09:00 08/19/16 09:00 08/19/16 09:00 08/19/16 09:00 08/19/16 09:00 Laboratory Results 08/19/16 05:12 08/19/16 05:12 08/18/16 08/19/16 08/20/16 05:59 05:59 05:59 Intake Total 1705.3 Output Total 1416 39 Balance 289.3 -39 PT 13.7 SEC (12.0-15.0) 08/19/16 05:12 INR 1.06 (0.83-1.16) 08/19/16 05:12 - Physical Exam Constitutional: not in pain Eyes: PERRL, anicteric sclera, EOMI Ears, Nose, Mouth, Throat: moist mucous membranes Cardiovascular: regular rate and rhythym, no murmur, rub, or gallop Respiratory: no respiratory distress, no rales or rhonchi, clear to auscultation Gastrointestinal: normoactive bowel sounds, soft, non-tender abdomen Genitourinary: no bladder fullness Skin: warm Musculoskeletal: generalized weakness Neurologic: AAOx3 Psychiatric: interacting appropriately, not anxious, not encephalopathic ICD10 Worksheet Patient Problems: Problems Problem Status Onset Vomiting Acute Constipation Acute
--- NOTE | 2016-08-19 12:26 | NEUSURGPN ---
Assessment/Plan: 89y/o female with AMS and likely ruptured AComm -Continue Nimtop -SBP goal 100-130 -Continue ventric open at 5mmhg -Cerebral Angiogram scheduled for later today with Dr. Jain -Post procedure okay for patient to be Q2 hour neuro checks. -HCT stable with SAH and IVH -Please notify NS with any change in neuro/motor exam Subjective: Resting comfortable, denies acute pain Objective: NAD A&Ox3, awake interactive. MEAx4 Ventric site clean and intact Catheter Insertion Date: 08/18/16 - Physician Patient Seen by : Susy Neurosurgery Physical Exam - Vitals, I&O, Labs I and O 08/18/16 08/19/16 08/20/16 05:59 05:59 05:59 Output Total 24 Balance -24 Output: CSF Drainage Amount 24 Ventriculostomy 1 24 Vital Signs Temp Pulse Resp BP Pulse Ox 37.8 C 54 L 18 103/48 L 94 08/19/16 12:00 08/19/16 12:00 08/19/16 12:00 08/19/16 12:00 08/19/16 12:00 ICD10 Worksheet Patient Problems: Problems Problem Status Onset Constipation Acute Vomiting Acute
[2016-08-19] MEDS ORDERED: HEPARIN 10,000 UNIT/10 ML MDV ONE (13:31)
--- NOTE | 2016-08-19 13:40 | PDINTPN ---
Data Entry Supervisor Progress Note Assessment/Plan: Assessment/plan: 89 F admitted with SAH and altered MS, s/p ventriculostomy. 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 * SAH- improved MS and no complaints today including non-focal exam. To OR for coil today. * Troponin- agree likely stress related and no further workup indicated. Objective: Vital Signs Temp Pulse Resp BP Pulse Ox 37.9 C 62 17 112/43 L 96 08/19/16 13:00 08/19/16 13:00 08/19/16 13:00 08/19/16 13:00 08/19/16 13:00 08/18/16 08/19/16 08/20/16 05:59 05:59 05:59 Output Total 41 Balance -41 PT 13.7 SEC (12.0-15.0) 08/19/16 05:12 INR 1.06 (0.83-1.16) 08/19/16 05:12 Physical Exam - Physical Exam General Appearance: WD/WN, alert, no apparent distress EENT: PERRL/EOMI Neck: full range of motion, supple Respiratory: lungs clear, normal breath sounds, No rales Cardiac/Chest: regular rate, rhythm, No edema Abdomen: normal bowel sounds, non-tender, soft, No distended Skin: normal color, warm/dry Lymphatic: no adenopathy Extremities: normal range of motion, No pedal edema Neuro/Psych: alert, normal mood/affect, oriented x 3 ICD10 Worksheet Patient Problems: Problems Problem Status Onset Constipation Acute Vomiting Acute
--- NOTE | 2016-08-19 15:51 | PDANEPAE ---
ANE History of Present Illness 89 yo F w SAH to IR for aneurysmal coil ANE Past Medical History - Cardiovascular History Hx Hypertension: No Hx Arrhythmias: No Hx Chest Pain: No Hx Coronary Artery / Peripheral Vascular Disease: No Hx CHF / Valvular Disease: No Hx Palpitations: No - Pulmonary History Hx COPD: No Hx Asthma/Reactive Airway Disease: No Hx Recent Upper Respiratory Infection: Yes Hx Oxygen in Use at Home: No - Neurologic History Hx Cerebrovascular Accident: No Hx Seizures: No Hx Dementia: No - Endocrine History Hx Diabetes: No - Renal History Hx Renal Disorders: Yes - Liver History Hx Hepatic Disorders: No - Neurological & Psychiatric Hx Hx Neurological and Psychiatric Disorders: No - Cancer History Hx Cancer: No - Congenital Disorder History Hx Congenital Disorders: No - GI History Hx Gastrointestinal Disorders: No - Chronic Pain History Chronic Pain: No (LT ING AREA) ANE Review of Systems - Exercise capacity Exercise capacity: >=4 METS ANE Patient History - Allergies Allergies/Adverse Reactions: No Known Allergies Allergy (Verified 08/18/16 00:18) - Home Medications Home medications: home medication list seen and reviewed Home Medications: Calcium Carbonate [Oyster Shell Calcium 500 mg (*)] 500 mg PO BID 08/18/16 [ Last Taken 08/17/16] Multivitamins [Multivitamin (*)] 1 each PO DAILY 08/18/16 [Last Taken 08/17/16] [place]-3 Fatty Acids [Fish Oil 1000 mg (*)] 1,000 mg PO DAILY 08/18/16 [Last Taken 08/17/16] - NPO status NPO Since - Liquids (Date): 08/19/16 NPO Since - Liquids (Time): 10:00 (water) NPO Since - Solids (Date): 08/18/16 - Anes Hx Anes Hx: no prior problems - Smoking Hx Smoking Status: Former smoker (quit 50 years ago) - Alcohol Use Alcohol Use: Occasionally - Family Anes Hx Family Anes Hx: none ANE Labs/Vital Signs - Labs Result Diagrams: 08/19/16 05:12 08/19/16 05:12 - Vital Signs Blood Pressure: 104/40 Heart Rate: 59 Respiratory Rate: 18 O2 Sat (%): 93 Height: 157.48 cm Weight: 58.74 kg ANE Physical Exam - Airway Neck exam: FROM Mallampati Score: Class 3 Mouth exam: normal dental/mouth exam - Pulmonary Pulmonary: clear to auscultation - Cardiovascular Cardiovascular: regular rate and rhythym - ASA Status ASA Status: III ANE Anesthesia Plan Anesthesia Plan: general endotracheal anesthesia Lines/Monitors: arterial line
[2016-08-19] MEDS ORDERED: fentaNYL 100 MCG/2 ML INJ ONE (16:31)
[2016-08-19] MEDS ORDERED: KETAMINE 100 MG/10 ML SYR ONE (16:31)
[2016-08-19] MEDS ORDERED: PROPOFOL 200 MG/20 ML VIAL ONE (16:31)
[2016-08-19] MEDS ORDERED: LIDOCAINE 2% 100 MG/5 ML SYR ONE (16:34)
[2016-08-19] MEDS ORDERED: PHENYLEPHRINE HCL 100 MCG/ML SYR ONE (16:34)
[2016-08-19] MEDS ORDERED: ROCURONIUM 50 MG/5 ML VIAL ONE ×2 (16:34→17:42)
[2016-08-19] MEDS ORDERED: epHEDrine SULFATE 10 MG/ML SYR ONE (16:34)
[2016-08-19] MEDS ORDERED: DEXAMETHASONE 4 MG/ML VIAL ONE (17:40)
[2016-08-19] MEDS ORDERED: ONDANSETRON 4 MG/2 ML VIAL ONE ×2 (17:40→18:56)
[2016-08-19] MEDS: BISACODYL 10 MG SUPP PR SCH (18:42)
[2016-08-19] MEDS: CALCIUM CARBONATE 500 MG TAB PO SCH ×2 (18:42→20:39)
[2016-08-19] MEDS: MULTIVITAMINS 1 EACH TAB PO SCH (18:42)
[2016-08-19] MEDS ORDERED: IOPAMIDOL (ISOVUE-300) 100 ML BTL ONE (18:52)
[2016-08-19] MEDS ORDERED: fentaNYL 100 MCG/2 ML INJ IVP PRN (19:44)
[2016-08-19] MEDS ORDERED: NALOXONE HCL 0.4 MG/ML INJ IVP PRN (19:44)
--- NOTE | 2016-08-19 19:49 | POSTANESTH ---
Post Anesthetic Evaluation Respiratory Status: Normal, Stable Level of Consciousness/Mental Status: Can Participate in Eval Pain Control: Adequate, Prn Tx Ordered Nausea/Vomiting Control: Adequate, Prn Tx Ordered Complications Possibly Related to Anesthesia: None Noted
--- NOTE | 2016-08-19 20:01 | POSTOPPROG ---
Post Op Note Date of Operation: 08/19/16 Surgeon: Jose Antonio Jain Anesthesia: GET(General Endotracheal) Pre-op Diagnosis: subarachnoid hemorrhage Post-op Diagnosis: same Indication: SAH Procedure: coil embolization of Acomm aneurysm Findings: see dictation Inf/Abcess present in the surg proc area at time of surgery?: No EBL: Minimal (5cc) Complications: none
[2016-08-20] MEDS: niMODipine 30 MG CAP PO SCH ×6 (02:07→21:37)
[2016-08-20 04:37] LABS: HEMATOCRIT 34.6 % (38.0-47.0); MEAN CELL HEMOGLOBIN 31.2 pg (27.9-34.1); MEAN CELL HEMOGLOBIN CONCENTR. 31.8 g/dL (32.4-36.7); RED BLOOD CELL COUNT 3.53 10^6/uL (4.18-5.33); RED CELL DISTRIBUTION WIDTH 13.6 % (11.5-15.2)
[2016-08-20 05:39] LABS: ANION GAP 8 mEq/L (8-16); CALCIUM 8.1 mg/dL (8.5-10.4); CARBON DIOXIDE 21 mEq/l (22-31); CHLORIDE 114 mEq/L (97-110); CREATININE 0.7 mg/dL (0.6-1.0); GLOMERULAR FILTRATION RATE > 60; GLUCOSE 127 mg/dL (70-100); POTASSIUM 3.9 mEq/L (3.5-5.2); SODIUM 143 mEq/L (134-144)
--- NOTE | 2016-08-20 08:12 | NEUSURGPN ---
Date of Surgery: 08/19/16 Post Op Day: 1 Assessment/Plan: Assessment: 89y/o female with AMS and likely ruptured AComm that is s/p ACOMM coiling Plan: -Continue Nimotop -SBP goal as ordered -Continue ventric open at 5mmhg -work on mobilizing pt with PT/OT -pt seen by Dr Jain as well -q2 hr neuro checks ordered -Per Dr Jain ok for post procedure okay for patient to be Q2 hour neuro checks. -recent HCT stable with SAH and IVH -Please notify NS with any change in neuro/motor exam Subjective: Awake and alert, NAD. Eating/drinking and voiding. No f/c/n/v/d. No new events overnight Objective: NAD A&Ox3, awake interactive. MEAx4 Ventric site clean and intact Neuro Check Frequency: per routine Urinary Catheter in Place: No Catheter Insertion Date: 08/18/16 - Physician Discussed Patient with Dr.: Jain Patient Seen by : Susy Neurosurgery Physical Exam - Vitals, I&O, Labs I and O 08/19/16 08/20/16 08/21/16 05:59 05:59 05:59 Intake Total 2019 Output Total 1641 8 Balance 379 -8 Weight 58.74 kg Intake: Oral (ml) 100 IV Infused (ml) 1920 Ns 1,000 ml @ 100 mls/hr 1920 IV CONT ARTEMIO Rx#: [id number] Output: Urine (ml) 1500 Catheter 1500 CSF Drainage Amount 141 8 Ventriculostomy 1 141 8 Other: Intake Quantity No Sufficient Vital Signs Temp Pulse Resp BP Pulse Ox 37.7 C 64 20 115/49 L 95 08/20/16 06:00 08/20/16 06:00 08/20/16 06:00 08/20/16 06:00 08/20/16 06:00 Laboratory Results 08/20/16 04:06 08/20/16 04:06 ICD10 Worksheet Patient Problems: Problems Problem Status Onset Constipation Acute Vomiting Acute
[2016-08-20] MEDS: NS 1,000 ML IV SCH (08:58)
[2016-08-20] MEDS: BISACODYL 10 MG SUPP PR SCH (09:00)
--- NOTE | 2016-08-20 12:05 | HOSPPROG ---
Hospitalist Progress Note Assessment/Plan: 89-year-old healthy woman is admitted with acute nausea vomiting altered mental status. Evaluation has included blood work and a CT scan of the abdomen which have been fairly unremarkable. 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 She underwent ventriculostomy on 08/18 with significant improvement in her mental status. Had 3 coils placed in aneurysm on 08/[address] Ceja. She has done quite well postoperatively # subarachnoid hemorrhage: Presenting with nausea vomiting and altered mental status. Appreciate neurosurgery consult. * Status post ventriculostomy on 08/18 * Aneurysm clipping on 08/19 * Continue ventricular per Neurosurgery * PT OT ST today # elevated troponin secondary to subarachnoid hemorrhage no further workup indicated # elevated blood sugar, likely mild diabetes or pre diabetes. Will check hemoglobin A1c continue to follow fasting blood sugars. # DVT prophylaxis SCDs and Josh hose, not indicated due to a subarachnoid hemorrhage Disposition: Patient will likely need some sort her rehab post bleed. Will order her rehab consult, she will likely be here another several days for her ventriculostomy. Subjective: Alert and oriented to name place and she knows it is 2016. She does have a little bit of confusion but overall is much more clear than admission. No obvious focal weakness is noted. Objective: Vital Signs Temp Pulse Resp BP Pulse Ox 37.6 C 62 19 115/47 L 92 08/20/16 08:00 08/20/16 11:00 08/20/16 11:00 08/20/16 11:00 08/20/16 11:00 Laboratory Results 08/20/16 04:06 08/20/16 04:06 08/19/16 08/20/16 08/21/16 05:59 05:59 05:59 Intake Total 2020 Output Total 1641 277 Balance 379 -277 PT 13.7 SEC (12.0-15.0) 08/19/16 05:12 INR 1.06 (0.83-1.16) 08/19/16 05:12 - Physical Exam Constitutional: no apparent distress, not in pain Eyes: PERRL, EOMI Ears, Nose, Mouth, Throat: moist mucous membranes Cardiovascular: regular rate and rhythym, no murmur, rub, or gallop Respiratory: no respiratory distress, no rales or rhonchi, clear to auscultation Gastrointestinal: normoactive bowel sounds, soft, non-tender abdomen Genitourinary: no bladder fullness Skin: warm Musculoskeletal: generalized weakness Neurologic: No AAOx3 Psychiatric: interacting appropriately, not anxious, not encephalopathic ICD10 Worksheet Patient Problems: Problems Problem Status Onset Vomiting Acute Constipation Acute
[2016-08-20] MEDS: MULTIVITAMINS 1 EACH TAB PO SCH (14:02)
[2016-08-20] MEDS: CALCIUM CARBONATE 500 MG TAB PO SCH ×2 (14:03→21:38)
--- NOTE | 2016-08-20 14:59 | PDINTPN ---
Certified Adapted Physical Educator Progress Note Assessment/Plan: Assessment/plan: 89 F admitted with SAH and altered MS, s/p ventriculostomy. 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 * SAH- 2/2 VICTORIA aneurysm, now s/p coils 08/19/16. Significant improvement in mental status per family and near baseline. Ventriculostomy remains in place. PT /OT, pulmonary toilet. Remains on Nimotop * Troponin- agree likely stress related and no further workup indicated. 08/20/16 14:56 Objective: Vital Signs Temp Pulse Resp BP Pulse Ox 37.5 C 67 14 126/54 H 95 08/20/16 12:00 08/20/16 14:00 08/20/16 14:00 08/20/16 14:00 08/20/16 14:00 Laboratory Results 08/20/16 04:06 08/20/16 04:06 08/19/16 08/20/16 08/21/16 05:59 05:59 05:59 Intake Total 2020 500 Output Total 1641 682 Balance 379 -182 PT 13.7 SEC (12.0-15.0) 08/19/16 05:12 INR 1.06 (0.83-1.16) 08/19/16 05:12 Physical Exam - Physical Exam General Appearance: alert, no apparent distress EENT: PERRL/EOMI Neck: supple Respiratory: lungs clear, normal breath sounds, No respiratory distress Cardiac/Chest: regular rate, rhythm, No edema Abdomen: non-tender, soft, No distended Skin: normal color, warm/dry Lymphatic: no adenopathy Extremities: No pedal edema Neuro/Psych: alert, normal mood/affect, oriented x 3 ICD10 Worksheet Patient Problems: Problems Problem Status Onset Constipation Acute Vomiting Acute
[2016-08-20] MEDS: ACETAMINOPHEN 325 MG TAB PO PRN ×2 (16:11→21:40)
[2016-08-21] MEDS: niMODipine 30 MG CAP PO SCH ×6 (01:00→22:03)
[2016-08-21 05:22] LABS: ANION GAP 6 mEq/L (8-16); CALCIUM 8.7 mg/dL (8.5-10.4); CARBON DIOXIDE 23 mEq/l (22-31); CHLORIDE 112 mEq/L (97-110); CREATININE 0.6 mg/dL (0.6-1.0); GLOMERULAR FILTRATION RATE > 60; GLUCOSE 101 mg/dL (70-100); POTASSIUM 3.9 mEq/L (3.5-5.2); SODIUM 141 mEq/L (134-144)
[2016-08-21] MEDS: CALCIUM CARBONATE 500 MG TAB PO SCH ×2 (09:31→22:04)
[2016-08-21] MEDS: MULTIVITAMINS 1 EACH TAB PO SCH (09:31)
[2016-08-21] MEDS: POLYETHYLENE GLYCOL 3350 17 GM PKT PO PRN (09:33)
[2016-08-21] MEDS: BISACODYL 10 MG SUPP PR SCH (09:34)
[2016-08-21] MEDS: ACETAMINOPHEN 325 MG TAB PO PRN ×2 (10:51→14:56)
--- NOTE | 2016-08-21 11:28 | NEUSURGPN ---
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 Eating/drinking and voiding. No f/c/n/v/ d. No new events overnight Objective: NAD A&Ox3 awake interactive MEAx4 Ventric site clean and intact, ICP running between 10-12, drainage serous ang CSF Neuro Check Frequency: per routine Urinary Catheter in Place: No Catheter Insertion Date: 08/18/16 - [place] Drain/Monitoring Right Ventriculostomy Location of Drain: EAM Level of Drain: 5 Units: mmHG - Physician Discussed Patient with : Susy Neurosurgery Physical Exam - Vitals, I&O, Labs I and O 08/20/16 08/21/16 08/22/16 05:59 05:59 05:59 Intake Total 2019 2380 Output Total 1641 2128 325 Balance 379 252 -325 Weight 58.74 kg Intake: Oral (ml) 100 2080 IV Infused (ml) 1920 300 Ns 1,000 ml @ 100 mls/hr 1920 300 IV CONT ARTEMIO Rx#: [id number] Output: Urine (ml) 1500 1925 300 Catheter 1500 600 Toilet 1325 300 CSF Drainage Amount 141 203 25 Ventriculostomy 1 141 203 25 Other: Intake Quantity No Sufficient Number of Voids Toilet 1 Vital Signs Temp Pulse Resp BP Pulse Ox 36.8 C 66 20 115/48 L 95 08/21/16 08:00 08/21/16 10:00 08/21/16 10:00 08/21/16 10:00 08/21/16 10:00 Laboratory Results 08/20/16 04:06 08/21/16 04:55 ICD10 Worksheet Patient Problems: Problems Problem Status Onset Constipation Acute Vomiting Acute
--- NOTE | 2016-08-21 12:17 | PDINTPN ---
Direct Support Staff Progress Note Assessment/Plan: Assessment/plan: 89 F admitted with SAH and altered MS, s/p ventriculostomy. 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 Remains stable and without complaints except minor headache. Ventriculostomy remains in place. PT/OT, pulmonary toilet. Remains on Nimotop * Troponin- agree likely stress related and no further workup indicated. Objective: Vital Signs Temp Pulse Resp BP Pulse Ox 36.8 C 66 20 115/48 L 95 08/21/16 08:00 08/21/16 10:00 08/21/16 10:00 08/21/16 10:00 08/21/16 10:00 Laboratory Results 08/20/16 04:06 08/21/16 04:55 08/20/16 08/21/16 08/22/16 05:59 05:59 05:59 Intake Total 20190 Output Total 1641 2128 325 Balance 379 252 -325 PT 13.7 SEC (12.0-15.0) 08/19/16 05:12 INR 1.06 (0.83-1.16) 08/19/16 05:12 Physical Exam - Physical Exam General Appearance: WD/WN, alert, no apparent distress EENT: PERRL/EOMI, other (dressing clean and dry) Neck: supple Respiratory: lungs clear, normal breath sounds, No respiratory distress Abdomen: non-tender, soft, No distended Skin: normal color, warm/dry Lymphatic: no adenopathy Extremities: No pedal edema Neuro/Psych: alert, normal mood/affect, oriented x 3 ICD10 Worksheet Patient Problems: Problems Problem Status Onset Constipation Acute Vomiting Acute
--- NOTE | 2016-08-21 15:58 | HOSPPROG ---
Hospitalist Progress Note Assessment/Plan: 89-year-old healthy woman is admitted with acute nausea vomiting altered mental status. Evaluation has included blood work and a CT scan of the abdomen which have been fairly unremarkable. 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 She underwent ventriculostomy on 08/18 with significant improvement in her mental status. Had 3 coils placed in aneurysm on 08/[address] Ceja. She has done quite well postoperatively # subarachnoid hemorrhage: Presenting with nausea vomiting and altered mental status. Appreciate neurosurgery consult. * Status post ventriculostomy on 08/18 * Aneurysm clipping on 08/19 * Post op care per Neurosurgery * PT OT ST today # Encephalopathy, resolving and likely back to baseline. Etiology is likely due to sub arachnoid hemorrhage. # elevated troponin secondary to subarachnoid hemorrhage no further workup indicated # elevated blood sugar, likely mild diabetes or pre diabetes. Will check hemoglobin A1c continue to follow fasting blood sugars. # DVT prophylaxis SCDs and Josh hose, not indicated due to a subarachnoid hemorrhage Disposition: Patient will likely need some sort her rehab post bleed. Will order her rehab consult, she will likely be here another several days for her ventriculostomy. Subjective: Mild [place], otherwise no complaints. No overnight events Objective: Vital Signs Temp Pulse Resp BP Pulse Ox 36.7 C 65 18 119/69 96 08/21/16 12:00 08/21/16 15:00 08/21/16 15:00 08/21/16 15:00 08/21/16 15:00 Laboratory Results 08/20/16 04:06 08/21/16 04:55 08/20/16 08/21/16 08/22/16 05:59 05:59 05:59 Intake Total 20190 Output Total 1641 2128 764 Balance 379 252 -764 PT 13.7 SEC (12.0-15.0) 08/19/16 05:12 INR 1.06 (0.83-1.16) 08/19/16 05:12 - Physical Exam Constitutional: no apparent distress, appears nourished Eyes: PERRL, EOMI Ears, Nose, Mouth, Throat: moist mucous membranes Cardiovascular: regular rate and rhythym, no murmur, rub, or gallop, No JVD Respiratory: no respiratory distress, no rales or rhonchi, clear to auscultation Gastrointestinal: normoactive bowel sounds Genitourinary: no bladder fullness Skin: warm, normal color Neurologic: AAOx3 ICD10 Worksheet Patient Problems: Problems Problem Status Onset Constipation Acute Vomiting Acute
[2016-08-21] MEDS: HYDROCODONE/APAP 5/325 TAB PO PRN (22:04)
[2016-08-22] MEDS: niMODipine 30 MG CAP PO SCH ×6 (02:59→21:54)
[2016-08-22] MEDS: HYDROCODONE/APAP 5/325 TAB PO PRN ×3 (03:04→22:00)
--- NOTE | 2016-08-22 07:15 | NEUSURGPN ---
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 Eating/drinking and voiding. No f/c/n/v/d. No new events overnight. Objective: Objective: NAD A&Ox3 awake interactive MEAx4 Ventric site clean and intact, ICP running between 10-12, drainage serous ang CSF ~5cc/hr output Neuro Check Frequency: per routine Urinary Catheter in Place: No Catheter Insertion Date: 08/18/16 - [place] Drain/Monitoring Right Ventriculostomy 1 Location of Drain: EAM CSF Drainage Amount: 5 Level of Drain: 5 Units: mmHG - Physician Discussed Patient with : Susy Neurosurgery Physical Exam - Vitals, I&O, Labs I and O 08/21/16 08/22/16 08/23/16 05:59 05:59 05:59 Intake Total 2380 1800 Output Total 2128 3111 12 Balance 252 -1311 -12 Intake: Oral (ml) 2080 1800 IV Infused (ml) 300 Ns 1,000 ml @ 100 mls/hr 300 IV CONT ARTEMIO Rx#: [id number] Output: Urine (ml) 1925 2950 Catheter 600 Toilet 1325 2950 CSF Drainage Amount 203 161 12 Ventriculostomy 1 203 161 12 Other: Intake Quantity Yes Sufficient Number of Voids Toilet 1 Vital Signs Temp Pulse Resp BP Pulse Ox 36.7 C 61 25 H 135/62 H 89 L 08/21/16 20:00 08/22/16 07:08 08/22/16 07:08 08/22/16 06:00 08/22/16 07:08 Laboratory Results 08/20/16 04:06 08/21/16 04:55 ICD10 Worksheet Patient Problems: Problems Problem Status Onset Constipation Acute Vomiting Acute
[2016-08-22] MEDS: CALCIUM CARBONATE 500 MG TAB PO SCH ×2 (08:41→21:51)
[2016-08-22] MEDS: BISACODYL 10 MG SUPP PR SCH (08:41)
[2016-08-22] MEDS: MULTIVITAMINS 1 EACH TAB PO SCH (08:41)
[2016-08-22] MEDS: ONDANSETRON 4 MG/2 ML VIAL IVP PRN (08:42)
[2016-08-22] MEDS: POLYETHYLENE GLYCOL 3350 17 GM PKT PO PRN (08:42)
--- NOTE | 2016-08-22 11:02 | PDINTPN ---
Senior Business Analyst Progress Note Assessment/Plan: Assessment/plan: 89 F admitted with SAH and altered MS, s/p ventriculostomy. 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 Remains stable. Ventriculostomy remains in place for ongoing slight bloody output. PT/OT, pulmonary toilet. Remains on Nimotop * Troponin- agree likely stress related and no further workup indicated. * Constipation- on miralax; consider colace and ambulation Objective: Vital Signs Temp Pulse Resp BP Pulse Ox 36.7 C 60 16 163/85 H 97 08/22/16 08:00 08/22/16 10:00 08/22/16 10:00 08/22/16 10:00 08/22/16 10:00 Laboratory Results 08/20/16 04:06 08/21/16 04:55 08/21/16 08/22/16 08/23/16 05:59 05:59 05:59 Intake Total 2380 1800 Output Total 2128 3111 437 Balance 252 -1311 -437 PT 13.7 SEC (12.0-15.0) 08/19/16 05:12 INR 1.06 (0.83-1.16) 08/19/16 05:12 Physical Exam - Physical Exam General Appearance: alert, no apparent distress EENT: PERRL/EOMI Neck: supple Respiratory: lungs clear, normal breath sounds, No respiratory distress Cardiac/Chest: regular rate, rhythm, No edema Abdomen: non-tender, soft, No distended Skin: normal color, warm/dry Lymphatic: no adenopathy Extremities: No pedal edema Neuro/Psych: alert, normal mood/affect, oriented x 3 ICD10 Worksheet Patient Problems: Problems Problem Status Onset Constipation Acute Vomiting Acute
[2016-08-22] MEDS ORDERED: BISACODYL 10 MG SUPP PR PRN (12:14)
--- NOTE | 2016-08-22 12:17 | HOSPPROG ---
Hospitalist Progress Note Assessment/Plan: 89-year-old healthy woman is admitted with acute nausea vomiting altered mental status. Evaluation has included blood work and a CT scan of the abdomen which have been fairly unremarkable. 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 She underwent ventriculostomy on 08/18 with significant improvement in her mental status. Had 3 coils placed in aneurysm on 08/[address] Ceja. She has done quite well postoperatively # subarachnoid hemorrhage: Presenting with nausea vomiting and altered mental status. * Status post ventriculostomy on 08/18 * Aneurysm clipping on 08/19 * Post op care per Neurosurgery * PT OT ST today # Encephalopathy, resolving and likely back to baseline. Etiology is likely due to sub arachnoid hemorrhage. # elevated troponin secondary to subarachnoid hemorrhage no further workup indicated # elevated blood sugar, likely mild diabetes or pre diabetes. Will check hemoglobin A1c continue to follow fasting blood sugars. # constipation: schedule Miralax. Suppository PRN. Ambulation # DVT prophylaxis SCDs and Josh hose, not indicated due to a subarachnoid hemorrhage Disposition: Patient will likely need some sort her rehab post bleed. Will order her rehab consult, she will likely be here another several days for her ventriculostomy. Subjective: Some constipation, otherwise no complaints Objective: Vital Signs Temp Pulse Resp BP Pulse Ox 36.7 C 61 20 139/58 H 95 08/22/16 08:00 08/22/16 11:00 08/22/16 11:00 08/22/16 11:00 08/22/16 11:00 Laboratory Results 08/20/16 04:06 08/21/16 04:55 08/21/16 08/22/16 08/23/16 05:59 05:59 05:59 Intake Total 2380 1800 Output Total 2128 3111 442 Balance 252 -1311 -442 PT 13.7 SEC (12.0-15.0) 08/19/16 05:12 INR 1.06 (0.83-1.16) 08/19/16 05:12 - Physical Exam Constitutional: no apparent distress, appears nourished Eyes: PERRL Ears, Nose, Mouth, Throat: moist mucous membranes Cardiovascular: regular rate and rhythym, no murmur, rub, or gallop Respiratory: no respiratory distress Gastrointestinal: distension (slight) Skin: warm Neurologic: AAOx3 Psychiatric: interacting appropriately, not anxious ICD10 Worksheet Patient Problems: Problems Problem Status Onset Constipation Acute Vomiting Acute
[2016-08-22] MEDS ORDERED: MAGNESIUM HYDROXIDE 30 ML UDCUP PO ONE (14:45)
[2016-08-22] MEDS: POLYETHYLENE GLYCOL 3350 17 GM PKT PO SCH (21:54)
[2016-08-23] MEDS: niMODipine 30 MG CAP PO SCH ×2 (01:39→06:34)
--- NOTE | 2016-08-23 08:51 | HOSPPROG ---
Hospitalist Progress Note Assessment/Plan: #AComm artery aneurysm with SAH: s/p coiling ventric to 10mmHg, cont neuro checks #Acute encephalopathy: resolved after coiling #Indeterminate troponin -no WMA on TTE #Deconditioning: walking unit with PT #Acute hypoxic resp failure: dry cough. Suspect atelectasis. Afebrile. Check CXR #Diet: regular #DVT ppx: SCDs #Disp: cont inpt admission for ventric, neuro checks Subjective: headache Objective: Vital Signs Temp Pulse Resp BP Pulse Ox 36.8 C 61 12 163/66 H 95 08/23/16 02:00 08/23/16 07:00 08/23/16 07:00 08/23/16 07:00 08/23/16 07:00 Laboratory Results 08/20/16 04:06 08/21/16 04:55 08/22/16 08/23/16 08/24/16 05:59 05:59 05:59 Intake Total 1800 1300 Output Total 9811 1825 10 [facility] -1311 -525 -10 PT 13.7 SEC (12.0-15.0) 08/19/16 05:12 INR 1.06 (0.83-1.16) 08/19/16 05:12 - Physical Exam Constitutional: no apparent distress Eyes: PERRL Ears, Nose, Mouth, Throat: moist mucous membranes, hearing normal, other ( ventric in place) Cardiovascular: regular rate and rhythym, no murmur, rub, or gallop Respiratory: no respiratory distress Gastrointestinal: normoactive bowel sounds Genitourinary: no bladder fullness Skin: warm Musculoskeletal: full muscle strength Neurologic: AAOx3, CN II-XII Intact Psychiatric: interacting appropriately ICD10 Worksheet Patient Problems: Problems Problem Status Onset Constipation Acute Vomiting Acute
--- NOTE | 2016-08-23 09:16 | NEUSURGPN ---
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 No f/c/n/v/d. No new events overnight. Feeling good. Objective: NAD A&Ox3 awake interactive MEAx4 Ventric site clean and intact, drainage clearing CSF ~3-10cc/hr output Neuro Check Frequency: per routine Urinary Catheter in Place: No Catheter Insertion Date: 08/18/16 - [place] Drain/Monitoring Ventriculostomy Location of Drain: EAM CSF Drainage Amount: 10 Level of Drain: 5 - Physician Discussed Patient with DrKimber: Susy Neurosurgery Physical Exam - Vitals, I&O, Labs I and O 08/22/16 08/23/16 08/24/16 05:59 05:59 05:59 Intake Total 1800 1300 Output Total 3111 1825 25 Balance -1311 -525 -25 Intake: Oral (ml) 1800 1300 Output: Urine (ml) 2950 1700 Toilet 2950 1700 CSF Drainage Amount 161 125 25 Right Ventriculostomy 1 5 Ventriculostomy 1 161 120 25 Other: Intake Quantity Yes Sufficient Number of Voids Toilet 1 Number of Stools Toilet 1 Vital Signs Temp Pulse Resp BP Pulse Ox 37.1 C 63 16 141/56 H 98 08/23/16 08:00 08/23/16 08:00 08/23/16 08:00 08/23/16 08:00 08/23/16 08:00 Laboratory Results 08/20/16 04:06 08/21/16 04:55 ICD10 Worksheet Patient Problems: Problems Problem Status Onset Constipation Acute Vomiting Acute
[2016-08-23] MEDS: CALCIUM CARBONATE 500 MG TAB PO SCH ×2 (09:17→21:41)
[2016-08-23] MEDS: MULTIVITAMINS 1 EACH TAB PO SCH (09:17)
[2016-08-23] MEDS: ACETAMINOPHEN 325 MG TAB PO PRN ×2 (09:21→18:05)
[2016-08-23] MEDS: niMODipine 33.333 MG/ML UDL PO SCH ×4 (10:21→21:42)
[2016-08-23] MEDS: POLYETHYLENE GLYCOL 3350 17 GM PKT PO SCH (19:29)
[2016-08-24] MEDS: niMODipine 33.333 MG/ML UDL PO SCH ×6 (01:57→22:19)
[2016-08-24 06:55] LABS: ANION GAP 10 mEq/L (8-16); CALCIUM 9.2 mg/dL (8.5-10.4); CARBON DIOXIDE 27 mEq/l (22-31); CHLORIDE 99 mEq/L (97-110); CREATININE 0.6 mg/dL (0.6-1.0); GLOMERULAR FILTRATION RATE > 60; GLUCOSE 100 mg/dL (70-100); POTASSIUM 3.7 mEq/L (3.5-5.2); SODIUM 136 mEq/L (134-144)
--- NOTE | 2016-08-24 08:47 | SOAPPROG ---
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) Plan: - doing very well - raise EVD to 15 today, output 120 yesterday at 10 - eating well, BM yesterday - sodium 136 and stable - continue nimodipine - continue q2h neuro checks in the day but OK to do Q4h at night to avoid waking up too much - heparin for DVT ppx - continue to monitor headaches, pain meds as needed 08/24/16 08:46 08/24/16 08:48 Subjective: no complaints this morning Objective: Vital Signs Temp Pulse Resp BP Pulse Ox 37 C 63 13 125/55 H 95 08/24/16 08:00 08/24/16 08:00 08/24/16 08:00 08/24/16 08:00 08/24/16 08:00 Laboratory Results 08/20/16 04:06 08/24/16 06:03 08/23/16 08/24/16 08/25/16 05:59 05:59 05:59 Intake Total 1300 Output Total 1825 107 2 Balance -525 -107 -2 PT 13.7 SEC (12.0-15.0) 08/19/16 05:12 INR 1.06 (0.83-1.16) 08/19/16 05:12 AAOx3, full strength, no drift, sensation intact - Pending Discharge Pending Discharge Within 24 Hours: No Pending Discharge Within 48 Hours: No ICD10 Worksheet Patient Problems: Problems Problem Status Onset Constipation Acute Vomiting Acute
[2016-08-24] MEDS: ACETAMINOPHEN 325 MG TAB PO PRN ×3 (09:18→22:18)
[2016-08-24] MEDS: MULTIVITAMINS 1 EACH TAB PO SCH (09:20)
[2016-08-24] MEDS: CALCIUM CARBONATE 500 MG TAB PO SCH ×2 (09:20→22:18)
--- NOTE | 2016-08-24 10:01 | HOSPPROG ---
Hospitalist Progress Note Assessment/Plan: #AComm artery aneurysm with SAH: s/p coiling -ventric increased 15mmHg today -nimodipine -q2hr neuro checks during day, q4h night #Acute encephalopathy: resolved #Indeterminate troponin -no WMA on TTE #Deconditioning: doing well with therapy #Acute hypoxic resp failure: CXR with left basilar opacity Favor atelectasis since min dry cough, no fever or leukocytosis. Incentive spirometry #Diet: regular #DVT ppx: SCDs #Disp: warrant inpt admission, cont ventric, neuro checks Subjective: heachache this morning Objective: Vital Signs Temp Pulse Resp BP Pulse Ox 37 C 66 14 146/58 H 97 08/24/16 09:00 08/24/16 09:00 08/24/16 09:00 08/24/16 09:00 08/24/16 09:00 Laboratory Results 08/20/16 04:06 08/24/16 06:03 08/23/16 08/24/16 08/25/16 05:59 05:59 05:59 Intake Total 1300 Output Total 1825 107 2 Balance -525 -107 -2 PT 13.7 SEC (12.0-15.0) 08/19/16 05:12 INR 1.06 (0.83-1.16) 08/19/16 05:12 - Physical Exam Constitutional: other (lying in bed with head covered with wash cloth) Eyes: PERRL Ears, Nose, Mouth, Throat: moist mucous membranes, hearing normal, other ( ventric in place) Cardiovascular: regular rate and rhythym, no murmur, rub, or gallop Respiratory: no respiratory distress Gastrointestinal: normoactive bowel sounds, soft, non-tender abdomen Genitourinary: no bladder fullness Skin: warm Musculoskeletal: generalized weakness Neurologic: CN II-XII Intact Psychiatric: interacting appropriately ICD10 Worksheet Patient Problems: Problems Problem Status Onset Constipation Acute Vomiting Acute
--- NOTE | 2016-08-24 12:46 | PDINTPN ---
Tapeman Progress Note Assessment/Plan: Assessment/plan: 89 F admitted with SAH and altered MS, s/p ventriculostomy. 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 Remains stable. Ventriculostomy remains in place for ongoing slight bloody output. PT/OT, pulmonary toilet. Remains on Nimotop; complains of headache today responding to tylenol. * Troponin- agree likely stress related and no further workup indicated. * Constipation- improved * Hypoxia- likely atelectasis. Encouraged IS 08/24/16 12:45 Objective: Vital Signs Temp Pulse Resp BP Pulse Ox 36.8 C 64 13 129/60 H 94 08/24/16 12:00 08/24/16 12:00 08/24/16 12:00 08/24/16 12:00 08/24/16 12:00 Laboratory Results 08/20/16 04:06 08/24/16 06:03 08/23/16 08/24/16 08/25/16 05:59 05:59 05:59 Intake Total 1300 300 Output Total 1825 107 272 Balance -525 -107 28 PT 13.7 SEC (12.0-15.0) 08/19/16 05:12 INR 1.06 (0.83-1.16) 08/19/16 05:12 Physical Exam - Physical Exam General Appearance: WD/WN, alert, no apparent distress EENT: PERRL/EOMI Neck: supple Respiratory: lungs clear, normal breath sounds, No respiratory distress Cardiac/Chest: regular rate, rhythm, No edema Abdomen: non-tender, soft, No distended Skin: normal color, warm/dry Lymphatic: no adenopathy Extremities: No pedal edema Neuro/Psych: alert, normal mood/affect, oriented x 3 ICD10 Worksheet Patient Problems: Problems Problem Status Onset Constipation Acute Vomiting Acute
[2016-08-24] MEDS: HEPARIN 5,000 UNIT/0.5 ML SYR SC SCH ×2 (15:51→22:19)
[2016-08-24] MEDS: POLYETHYLENE GLYCOL 3350 17 GM PKT PO SCH (22:20)
[2016-08-25] MEDS: ACETAMINOPHEN 325 MG TAB PO PRN ×2 (01:57→19:51)
[2016-08-25] MEDS: HYDROCODONE/APAP 5/325 TAB PO PRN ×4 (01:57→21:04)
[2016-08-25] MEDS: niMODipine 33.333 MG/ML UDL PO SCH ×6 (01:58→21:04)
[2016-08-25] MEDS: HEPARIN 5,000 UNIT/0.5 ML SYR SC SCH ×3 (06:06→21:04)
--- NOTE | 2016-08-25 09:33 | SOAPPROG ---
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) Plan: - doing very well - clamp EVD today, output 32 yesterday at 15, please call with increasing headaches or lethargy - CT head in AM - eating well, continue to increase OOB and PO intake - sodium 136 and stable - continue nimodipine - continue q2h neuro checks in the day but OK to do Q4h at night to avoid waking up too much - heparin for DVT ppx - continue to monitor headaches, pain meds as needed 08/24/16 08:46 08/24/16 08:48 08/25/16 09:31 Subjective: currently no complaints Objective: Vital Signs Temp Pulse Resp BP Pulse Ox 36.8 C 65 14 155/54 H 93 08/25/16 08:00 08/25/16 08:00 08/25/16 08:00 08/25/16 08:00 08/25/16 08:00 Laboratory Results 08/20/16 04:06 08/24/16 06:03 08/24/16 08/25/16 08/26/16 05:59 05:59 05:59 Intake Total 1350 Output Total 107 478 2 Balance -107 872 -2 PT 13.7 SEC (12.0-15.0) 08/19/16 05:12 INR 1.06 (0.83-1.16) 08/19/16 05:12 AAOx3, full strength/sensation, no drift, speech clear and fluent - Pending Discharge Pending Discharge Within 24 Hours: No Pending Discharge Within 48 Hours: No ICD10 Worksheet Patient Problems: Problems Problem Status Onset Constipation Acute Vomiting Acute
[2016-08-25] MEDS: CALCIUM CARBONATE 500 MG TAB PO SCH ×2 (10:37→19:51)
[2016-08-25] MEDS: MULTIVITAMINS 1 EACH TAB PO SCH (10:37)
--- NOTE | 2016-08-25 11:25 | HOSPPROG ---
Hospitalist Progress Note Assessment/Plan: #AComm artery aneurysm with SAH: s/p coiling ventric clamped today. Monitor for lethargy and worsening [place] -plan for CT in morning #Acute encephalopathy: resolved after coiling #Indeterminate troponin -no WMA on TTE #Deconditioning: walking unit with PT. #Poor appetite: suspect due to [place]. Encourage PO intake #Acute hypoxic resp failure: dry cough. Suspect atelectasis. Afebrile. Check CXR #Diet: regular #DVT ppx: SCDs #Disp: cont inpt admission for ventric, neuro checks Subjective: [place] this morning, still not eating much Objective: Vital Signs Temp Pulse Resp BP Pulse Ox 36.8 C 69 14 141/89 H 95 08/25/16 08:00 08/25/16 10:00 08/25/16 10:00 08/25/16 10:00 08/25/16 10:00 Laboratory Results 08/20/16 04:06 08/24/16 06:03 08/24/16 08/25/16 08/26/16 05:59 05:59 05:59 Intake Total 1350 Output Total 107 478 2 Balance -107 872 -2 PT 13.7 SEC (12.0-15.0) 08/19/16 05:12 INR 1.06 (0.83-1.16) 08/19/16 05:12 - Physical Exam Constitutional: other (fatigue) Eyes: PERRL Ears, Nose, Mouth, Throat: moist mucous membranes, hearing normal Cardiovascular: regular rate and rhythym, no murmur, rub, or gallop Respiratory: no respiratory distress, no rales or rhonchi Gastrointestinal: normoactive bowel sounds, soft, non-tender abdomen Genitourinary: no bladder fullness, no bladder tenderness Skin: warm Musculoskeletal: full muscle strength Neurologic: AAOx3, CN II-XII Intact, other (tired. Following commands ) Psychiatric: interacting appropriately ICD10 Worksheet Patient Problems: Problems Problem Status Onset Constipation Acute Vomiting Acute
[2016-08-25] MEDS: ONDANSETRON 4 MG/2 ML VIAL IVP PRN (14:52)
[2016-08-25] MEDS: POLYETHYLENE GLYCOL 3350 17 GM PKT PO SCH (19:51)
[2016-08-26] MEDS: niMODipine 33.333 MG/ML UDL PO SCH ×6 (02:56→21:24)
[2016-08-26] MEDS: ACETAMINOPHEN 325 MG TAB PO PRN ×2 (02:59→19:53)
[2016-08-26] MEDS: HEPARIN 5,000 UNIT/0.5 ML SYR SC SCH ×3 (05:52→21:25)
[2016-08-26] MEDS: CALCIUM CARBONATE 500 MG TAB PO SCH ×2 (08:25→21:16)
[2016-08-26] MEDS: MULTIVITAMINS 1 EACH TAB PO SCH (08:25)
[2016-08-26] MEDS: HYDROCODONE/APAP 5/325 TAB PO PRN (08:25)
--- NOTE | 2016-08-26 09:56 | NEUSURGPN ---
Assessment/Plan: Assessment: 89y/o female with AMS and likely ruptured AComm that is s/p ACOMM coiling Plan: -Continue Nimotop -SBP goal as ordered -Continue ventric at 10mmhg -continue to work on mobilizing pt with PT/OT -Q2hour neuro checks -Please notify NS with any change in neuro/motor exam Subjective: Patient denies any complaints Objective: AAO to person and place, full strength, no drift, sensation intact Neuro Check Frequency: per routine Urinary Catheter in Place: No Catheter Insertion Date: 08/18/16 - Physician Discussed Patient with : Susy Neurosurgery Physical Exam - Vitals, I&O, Labs I and O 08/25/16 08/26/16 08/27/16 05:59 05:59 05:59 Intake Total 1350 960 Output Total 478 25 2 Balance 872 935 -2 Intake: Oral (ml) 1350 960 Output: Urine (ml) 470 Toilet 470 CSF Drainage Amount 8 25 2 Ventriculostomy 8 23 2 Ventriculostomy 1 0 2 Other: Number of Voids Toilet 3 1 Number of Stools Toilet 1 0 Vital Signs Temp Pulse Resp BP Pulse Ox 36.8 C 65 19 116/36 L 94 08/26/16 04:00 08/26/16 06:00 08/26/16 06:00 08/26/16 06:00 08/26/16 06:00 Laboratory Results 08/20/16 04:06 08/24/16 06:03 ICD10 Worksheet Patient Problems: Problems Problem Status Onset Constipation Acute Vomiting Acute
--- NOTE | 2016-08-26 09:58 | HOSPPROG ---
Hospitalist Progress Note Assessment/Plan: #Acute encephalopathy: multifactorial, suspect [facility] this morning. 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 SAHs decreased -plan for CT in morning #Indeterminate troponin -no WMA on TTE #Deconditioning: walking unit with PT. #Poor appetite: suspect due to [place]. Calorie counting. If not improved, recommend tube feeds. Family wants another day to encourage her to eat #Acute hypoxic resp failure: dry cough. Suspect atelectasis. Afebrile. #Diet: regular #DVT ppx: SQH #Disp: cont inpt admission for ventric, neuro checks Subjective: lethargic this AM after [place] dose. c/o neck pain yesterday Objective: Vital Signs Temp Pulse Resp BP Pulse Ox 36.8 C 65 19 116/36 L 94 08/26/16 04:00 08/26/16 06:00 08/26/16 06:00 08/26/16 06:00 08/26/16 06:00 Laboratory Results 08/20/16 04:06 08/24/16 06:03 08/25/16 08/26/16 08/27/16 05:59 05:59 05:59 Intake Total 1350 960 Output Total 478 25 2 Balance 872 935 -2 PT 13.7 SEC (12.0-15.0) 08/19/16 05:12 INR 1.06 (0.83-1.16) 08/19/16 05:12 - Physical Exam Constitutional: other (lethargic, staring off when speaking to her) Eyes: PERRL Ears, Nose, Mouth, Throat: moist mucous membranes, hearing normal Cardiovascular: regular rate and rhythym, no murmur, rub, or gallop Respiratory: no respiratory distress, no rales or rhonchi Gastrointestinal: normoactive bowel sounds, soft, non-tender abdomen Genitourinary: no bladder fullness Skin: warm Musculoskeletal: full muscle strength Neurologic: CN II-XII Intact, other (follows commands. Alert to place, year. Not month or day) Psychiatric: other (lethargic) ICD10 Worksheet Patient Problems: Problems Problem Status Onset Constipation Acute Vomiting Acute
--- NOTE | 2016-08-26 11:03 | PDINTPN ---
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 Remains stable. Ventriculostomy remains in place for ongoing slight bloody output. PT/OT, pulmonary toilet. Remains on Nimotop; [place] better. * Troponin- agree likely stress related and no further workup indicated. * Constipation- improved * Hypoxia- likely atelectasis. Encouraged IS * Nutrition: Getting only a small fraction of her daily nutritional needs for the past week. * Prophylaxis: Given poor PO, martínez start GI prophylaxis. Plan: Calorie count today. If inadequate PO, probably should place feeding tube. Start H2 cleopatra. Increase activity as tolerated. Continue ventric drainage. ? place shunt if still having symptoms with clamping ventriculostomy drain. 08/26/16 11:18 Objective: Vital Signs Temp Pulse Resp BP Pulse Ox 36.8 C 65 19 116/36 L 94 08/26/16 04:00 08/26/16 06:00 08/26/16 06:00 08/26/16 06:00 08/26/16 06:00 Laboratory Results 08/20/16 04:06 08/24/16 06:03 08/25/16 08/26/16 08/27/16 05:59 05:59 05:59 Intake Total 1350 960 Output Total 478 25 2 Balance 872 935 -2 PT 13.7 SEC (12.0-15.0) 08/19/16 05:12 INR 1.06 (0.83-1.16) 08/19/16 05:12 CXR 08/24: New LLL infiltrate/consolidation. Images reviewed. ICD10 Worksheet Patient Problems: Problems Problem Status Onset Constipation Acute Vomiting Acute
[2016-08-26] MEDS: FAMOTIDINE 20 MG/NACL 50 ML IV SCH (14:39)
[2016-08-26] MEDS: oxyCODONE IR 5 MG TAB PO PRN ×2 (15:29→19:53)
[2016-08-26 17:35] LABS: HEMATOCRIT 42.4 % (38.0-47.0); HEMOGLOBIN 14.2 g/dL (12.6-16.3); MEAN CELL HEMOGLOBIN CONCENTR. 33.5 g/dL (32.4-36.7); MEAN CELL VOLUME 92.6 fL (81.5-99.8); RED BLOOD CELL COUNT 4.58 10^6/uL (4.18-5.33); RED CELL DISTRIBUTION WIDTH 13.3 % (11.5-15.2)
[2016-08-26] MEDS: cefTRIAXone 2 GM in D5W 50 ML IV SCH (18:43)
[2016-08-26] MEDS: POLYETHYLENE GLYCOL 3350 17 GM PKT PO SCH ×2 (19:21→21:16)
[2016-08-26] MEDS: VANCOMYCIN HCL/NORMAL SALINE 250 ML IV SCH (19:54)
[2016-08-26 20:47] LABS: CSF APPEARANCE SL. HAZY (CLEAR); CSF COLOR SLIGHTLY PINK (COLORLESS); CSF SUPERNATANT COLORLESS (COLORLESS); WBC, CSF 122 /mm3 (0-5)
[2016-08-26] MEDS ORDERED: NS 1,000 ML IV SCH (21:15)
[2016-08-27] MEDS: niMODipine 33.333 MG/ML UDL PO SCH ×6 (02:20→21:31)
[2016-08-27 02:27] LABS: COLOR YELLOW; LEUKOCYTE ESTERASE,URINE 3+ (NEGATIVE); NITRITE,URINE NEGATIVE (NEGATIVE)
[2016-08-27 02:35] LABS: BACTERIA 3+ /hpf (NONE SEEN); MUCUS TRACE /lpf (NONE-1+); WBC,URINE 50-182 /hpf (0-3)
[2016-08-27 04:41] LABS: HEMATOCRIT 39.5 % (38.0-47.0); MEAN CELL HEMOGLOBIN 30.8 pg (27.9-34.1); MEAN CELL HEMOGLOBIN CONCENTR. 32.9 g/dL (32.4-36.7); MEAN CELL VOLUME 93.6 fL (81.5-99.8); RED BLOOD CELL COUNT 4.22 10^6/uL (4.18-5.33); RED CELL DISTRIBUTION WIDTH 13.3 % (11.5-15.2)
[2016-08-27 04:58] LABS: ANION GAP 8 mEq/L (8-16); CALCIUM 8.8 mg/dL (8.5-10.4); CARBON DIOXIDE 29 mEq/l (22-31); CHLORIDE 98 mEq/L (97-110); CREATININE 0.7 mg/dL (0.6-1.0); GLOMERULAR FILTRATION RATE > 60; GLUCOSE 114 mg/dL (70-100); POTASSIUM 3.6 mEq/L (3.5-5.2); SODIUM 135 mEq/L (134-144)
[2016-08-27] MEDS: HEPARIN 5,000 UNIT/0.5 ML SYR SC SCH ×3 (05:19→21:31)
[2016-08-27] MEDS: ACETAMINOPHEN 325 MG TAB PO PRN ×4 (05:19→21:37)
[2016-08-27] MEDS: VANCOMYCIN HCL/NORMAL SALINE 250 ML IV SCH ×2 (07:31→18:14)
[2016-08-27] MEDS ORDERED: NS 1,000 ML IV SCH (08:00)
--- NOTE | 2016-08-27 08:01 | NEUSURGPN ---
Date of Surgery: 08/18/16 Post Op Day: 9 Assessment/Plan: Assessment: 89y/o female with AMS and likely ruptured AComm that is s/p ACOMM coiling Plan: -Continue Nimotop -SBP goal as ordered -Continue ventric at 10mmhg, will try another wean once UTI clears up -Continue IVF at 100/hr -Consider adding Marinol for appetite stimulant-will defer to Medicine for dosage, feeding tube not successful last evening -continue to work on mobilizing pt with PT/OT -Q2hour neuro checks -Only wake up once at night -Please notify NS with any change in neuro/motor exam Subjective: Patient feeling better this morning. Denies any pain. Objective: AAO to person and place, full strength, no drift, sensation intact Neuro Check Frequency: per routine Urinary Catheter in Place: No Catheter Insertion Date: 08/18/16 - Physician Discussed Patient with : Susy Patient Seen by : Susy Neurosurgery Physical Exam - Vitals, I&O, Labs I and O 08/26/16 08/27/16 08/28/16 05:59 05:59 05:59 Intake Total 960 1152 Output Total 25 66 Balance 935 1086 Intake: Oral (ml) 960 500 IV Intake (ml) 652 Output: CSF Drainage Amount 25 66 Ventriculostomy 23 66 Ventriculostomy 1 2 Other: Number of Voids Toilet 1 1 Number of Stools Toilet 0 Microbiology 08/26/16 20:05 Gram Stain - Final Csf From Shunt Vital Signs Temp Pulse Resp BP Pulse Ox 37.1 C 78 16 133/62 H 89 L 08/27/16 04:00 08/27/16 06:00 08/27/16 06:00 08/27/16 06:00 08/27/16 06:00 Laboratory Results 08/27/16 04:00 08/27/16 04:00 ICD10 Worksheet Patient Problems: Problems Problem Status Onset Constipation Acute Vomiting Acute
[2016-08-27] MEDS: FAMOTIDINE 20 MG/NACL 50 ML IV SCH (08:52)
[2016-08-27] MEDS: MULTIVITAMINS 1 EACH TAB PO SCH (08:53)
[2016-08-27] MEDS: CALCIUM CARBONATE 500 MG TAB PO SCH ×2 (08:53→21:30)
[2016-08-27] MEDS: cefTRIAXone 2 GM in D5W 50 ML IV SCH (09:31)
--- NOTE | 2016-08-27 09:34 | HOSPPROG ---
Hospitalist Progress Note Assessment/Plan: #Acute encephalopathy: much improved today with abx. +UTI. Minimize central- acting medications #Fever: suspect due to UTI. Elevated WBCs in CSF, but difficult to interpret with SAH. Improved on abx. Blood, urine, CSF cultures pending. 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 Repeat CT 08/25 with persistent hydrocephalus ventric open today, may trial #Indeterminate troponin -no WMA on TTE #Deconditioning: walking unit with PT. #Poor appetite: feeding tube not successful. May need TPN. #Acute hypoxic resp failure: dry cough. Suspect atelectasis. Afebrile. #Diet: regular #DVT ppx: SQH #Disp: cont inpt admission for ventric, neuro checks Subjective: MS much improved today Objective: Vital Signs Temp Pulse Resp BP Pulse Ox 36.9 C 65 14 147/63 H 97 08/27/16 08:00 08/27/16 08:00 08/27/16 08:00 08/27/16 08:00 08/27/16 08:00 Microbiology 08/26/16 20:05 Gram Stain - Final Csf From Shunt Laboratory Results 08/27/16 04:00 08/27/16 04:00 08/26/16 08/27/16 08/28/16 05:59 05:59 05:59 Intake Total 960 1152 Output Total 25 66 0 Balance 935 1086 0 PT 13.7 SEC (12.0-15.0) 08/19/16 05:12 INR 1.06 (0.83-1.16) 08/19/16 05:12 - Physical Exam Constitutional: no apparent distress Eyes: PERRL Ears, Nose, Mouth, Throat: moist mucous membranes Cardiovascular: regular rate and rhythym, tachycardia Respiratory: no respiratory distress Gastrointestinal: normoactive bowel sounds Genitourinary: no bladder fullness Skin: warm Musculoskeletal: full muscle strength Neurologic: other (alert to place, month, not date; much improved from yesterday ) Psychiatric: interacting appropriately ICD10 Worksheet Patient Problems: Problems Problem Status Onset Constipation Acute Vomiting Acute
--- NOTE | 2016-08-27 13:00 | PDINTPN ---
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 Remains stable. Ventriculostomy remains in place for ongoing slight bloody output. PT/OT, pulmonary toilet. Remains on Nimotop; [place] better. * Troponin- agree likely stress related and no further workup indicated. * Constipation- improved * Hypoxia- likely atelectasis. Encouraged IS * Nutrition: Getting only a small fraction of her daily nutritional needs for the past week. She refuses TF. * Prophylaxis: Given poor PO, martínez start GI prophylaxis. * UTI: Started CTX, now changed to Cefepime Plan: Continue calorie count. If inadequate PO, probably should place feeding tube, but she's refusing today. Continue H2 cleopatra, Cefepime. Increase activity as tolerated. Continue ventric drainage. ? place shunt if still having symptoms with clamping ventriculostomy drain. 08/27/16 12:51 Subjective: Feels a bit stronger today. Trying to eat. Refuses feeding tube. Objective: Vital Signs Temp Pulse Resp BP Pulse Ox 36.9 C 68 17 130/89 H 98 08/27/16 08:00 08/27/16 10:00 08/27/16 10:00 08/27/16 10:00 08/27/16 10:00 Microbiology 08/26/16 20:05 Gram Stain - Final Csf From Shunt Laboratory Results 08/27/16 04:00 08/27/16 04:00 08/26/16 08/27/16 08/28/16 05:59 05:59 05:59 Intake Total 960 1152 Output Total 25 66 2 Balance 935 1086 -2 PT 13.7 SEC (12.0-15.0) 08/19/16 05:12 INR 1.06 (0.83-1.16) 08/19/16 05:12 Microbiology 08/26/16 20:05 Csf From Shunt Gram Stain - Final Laboratory Tests 08/27/16 02:21 Urine RBC 10-15 H Urine WBC 50-182 H Physical Exam - Physical Exam General Appearance: alert, no apparent distress EENT: normal ENT inspection Neck: normal inspection Respiratory: lungs clear Cardiac/Chest: regular rate, rhythm, No edema Abdomen: normal bowel sounds, non-tender Skin: normal color, warm/dry Extremities: normal inspection Neuro/Psych: alert, No oriented x 3, No motor weakness ICD10 Worksheet Patient Problems: Problems Problem Status Onset Constipation Acute Vomiting Acute
[2016-08-27] MEDS ORDERED: CEFEPIME HCL 2 GM in D5W 100 ML IV SCH (14:00)
[2016-08-27 17:56] LABS: PROTEIN, CSF 92 mg/dL (12-60)
[2016-08-27] MEDS ORDERED: cefTRIAXone 2 GM in D5W 50 ML IV SCH (21:00)
[2016-08-27] MEDS: CEFEPIME HCL 2 GM in D5W 100 ML IV SCH (21:30)
[2016-08-27] MEDS: POLYETHYLENE GLYCOL 3350 17 GM PKT PO SCH (21:31)
[2016-08-27] MEDS: oxyCODONE IR 5 MG TAB PO PRN (21:37)
--- NOTE | 2016-08-28 00:18 | GCON ---
[f rep st] CONSULTATION INFECTIOUS DISEASE CONSULTATION DATE OF CONSULTATION: 08/27/2016 REFERRING PHYSICIAN: Matilde Ellis MD REASON FOR CONSULTATION: Altered mental status, fever, possible meningitis. CHIEF COMPLAINT: Fever. HISTORY OF PRESENT ILLNESS: This is an 89-year-old, female with past medical history sign ificant for psoriasis, who is otherwise independent and fairly active. She apparently woke up last w [place] with severe headache, nausea, and vomiting. When she was brought into the emergency room, she wa s initially afebrile, but then had a fever to 38.2. She had a head CT done, which showed diffuse sub arachnoid hemorrhage pronounced anteriorly and toward the left and the frontal region, and was found to have a ruptured anterior communicating artery aneurysm. She is status post a right frontal ventr iculostomy catheter, as well as status post coil embolization of the ruptured anterior communicating artery aneurysm. According to the family, shortly after those procedures were done, her mental stat us did improve. She was still slightly disoriented, but was conversing. Two days ago the catheter wa s clamped, and she started to have increasing headaches, and yesterday she was more lethargic and co nfused. She spiked a temperature to 38.5. Blood work was done, and she was noted to have a white blo od cell count elevated at 10.5. Blood cultures x2 sets were done, and they are pending. She had a ur inalysis done, which showed pyuria with urine WBCs of 50-182, urine RBCs of 10-15, and 3+ leukocyte esterase, and 3+ bacteria. She initially had a [place] catheter just after her neurosurgical procedure s, but according to the family that was removed a couple days later. This urine specimen was a speci men given by the patient herself. It is unclear whether or not it was an adequate clean-catch specim en. She was given a dose of vancomycin yesterday at 1854 hours, and ceftriaxone 2 g at 1843 hours. A CSF specimen was submitted at 2005 hours, which was slightly pink and hazy in nature, with a CSF WB C of 122, CSF RBC of 2355, a CSF neutrophil percentage of %, CSF lymphocyte percentage of 24%. No glucose or protein was submitted. The Gram stain did not show any organisms, but it did dafne w 1+ polys and 1+ mononuclear cells. She is maintained on vancomycin and ceftriaxone as of today. Tavon silvestre has had some chest x-rays done during her hospitalization, which showed either atelectasis or an i nfiltrate in the left lower lobe. That apparently has been noted since August 24. [facility], she has not been having any increased cough or sputum production. According to the berhane renee, she was not complaining of any dysuria over the last couple of days. The history is obtained p urely on the medical records, the hospitalist team, as well the family at the bedside, as the patien t is pretty drowsy and is unable to really answer my questions in any appropriate fashion. Infectiou s Disease is now consulted for further evaluation and opinion. REVIEW OF SYSTEMS: Could not be obtained given the above. PAST MEDICAL HISTORY: Significant for psoriasis. PAST SURGICAL HISTORY: Significant for cholecystectomy, left inguinal hernia repair. FAMILY HISTORY: No significant family history of intracranial hemorrhage. SOCIAL HISTORY: Nonsmoker, does not drink alcohol, and does not use any illicit drugs. She lives wi th her . She is pretty active. According to the family, was able to be independent and perfor m all ADLs. ALLERGIES: No known drug allergies. MEDICATIONS: As per MAY. PHYSICAL EXAMINATION: VITAL SIGNS: Temperature current is 36.9, pulse is 58, respiratory rate 17, b lood pressure is 130/89, saturations are 98% on 2 L of O2 by the nasal cannula. GENERAL: The patient is sitting up in a chair in the Intensive Care Unit, drowsy, but arousable. She attempts to answer questions, but is mostly answering yes to most of the questions that are asked. She is unable to joe ntify her by name or her daughter by name or association when asked, but she smiles when she looks at them. HEENT: A ventriculostomy catheter noted. Eyes are pinpoint bilaterally without conju nctival injection or petechiae. Oropharynx with dry mucous membranes. She is minimally able to stick out her tongue. There is no obvious oral candidiasis. CARDIOVASCULAR: S1, S2. Regular rate and rhyt hm. No murmurs appreciated. RESPIRATORY: Limited exam, but clear anteriorly. Unable to do a posterio r lung exam. ABDOMEN: Positive bowel sounds in all 4 quadrants. Soft, nontender, nondistended. EXTRE MITIES: No obvious swelling of the lower extremities. No obvious joint effusions appreciated. SKIN: No obvious rashes appreciated on the limited exam. LABS: White blood cell count is 9.0, hemoglobin 13.0, platelets are 297. Chemistry: Sodium 135, pot assium 3.6, chloride 98, bicarb 29, BUN , creatinine 0.7. LFTs done on August 19 were withi n the normal range. Urinalysis as stated above. CSF as stated above. Microbiology cultures are curre ntly in progress and pending. IMAGING: Imaging results have all been reviewed by me and are stated above. The most recent chest x -ray done this morning showed very similar changes as compared to the past several days with atelect asis or infiltrate at the left retrocardiac region with trace pleural effusion and some mild central perihilar bronchial wall thickening. Recent head CT done yesterday shows paranasal sinuses are ghassan r. Continued intraventricular blood and subarachnoid blood unchanged from previous exams. Ventricula r enlargement unchanged. Persistent hydrocephalus. ASSESSMENT: 1. Fever and leukocytosis. 2. Cerebrospinal fluid pleocytosis in the setting of recent subarachnoid hemorrhage and ventriculos uelalia catheter placement. Rule out ventriculitis. 3. Subarachnoid hemorrhage, status post right ventriculostomy catheter placement and coiling of rup tured anterior communicating artery aneurysm. 4. Pyuria. Rule out urinary tract infection. PLAN: At this point in time, cultures have been appropriately collected including blood, urine, and CSF. These are all pending or in progress. She has been placed on empiric antibiotics including van comycin and ceftriaxone. We will discontinue ceftriaxone and broaden to cefepime given ventriculosto my catheter to ensure adequate and appropriate coverage. Would recommend continuing antibiotics unti l further maturation of her cultures, as they are quite early and in progress at present. Given rece nt hemorrhage and ventriculostomy catheter in for 1 week now, she has some increased risk factors fo r infection. Recommend adding a glucose and protein to the CSF profile, understanding that this may be difficult to interpret given her recent hemorrhage. The above plan was explained in detail to the family at the bedside, as well as the hospitalist team and force dispatcher team. Thank you very much for providing this opportunity to care for your patient in consultation. /[id number]/MODL
[2016-08-28] MEDS: niMODipine 33.333 MG/ML UDL PO SCH ×6 (02:06→21:46)
[2016-08-28 05:50] LABS: % IMMATURE GRANULYOCYTES 1.3 % (0.0-1.1); ABSOLUTE IMMATURE GRANULOCYTES 0.09 10^3/uL (0.00-0.10); ADD DIFF? NO; ADD MORPH? NO; ADD SCAN? NO; ATYPICAL LYMPHOCYTE FLAG 10 (0-99); FRAGMENT RBC FLAG 0 (0-99); HEMATOCRIT 37.6 % (38.0-47.0); HEMOGLOBIN 12.4 g/dL (12.6-16.3); LEFT SHIFT FLG 0 (0-99); LIPEMIA HEMOLYSIS FLAG 80 (0-99); MEAN CELL HEMOGLOBIN 31.3 pg (27.9-34.1); MEAN CELL VOLUME 94.9 fL (81.5-99.8); MEAN PLATELET VOLUME 9.9 fL (8.7-11.7); PLATELET CLUMPS FLAG 0 (0-99); PLATELET COUNT 240 10^3/uL (150-400); RED BLOOD CELL COUNT 3.96 10^6/uL (4.18-5.33); RED CELL DISTRIBUTION WIDTH 13.2 % (11.5-15.2)
[2016-08-28 06:00] LABS: ALANINE AMINOTRANSFERASE 39 IU/L (9-52); ALBUMIN 3.2 g/dL (3.5-5.0); ALKALINE PHOSPHATASE 59 IU/L (38-126); ASPARTATE AMINOTRANSFERASE 33 IU/L (14-46); CALCIUM 8.3 mg/dL (8.5-10.4); CARBON DIOXIDE 23 mEq/l (22-31); CHLORIDE 104 mEq/L (97-110); CREATININE 0.5 mg/dL (0.6-1.0); GLOMERULAR FILTRATION RATE > 60; GLUCOSE 103 mg/dL (70-100); SODIUM 134 mEq/L (134-144); TOTAL PROTEIN 5.9 g/dL (6.3-8.2)
[2016-08-28 06:07] LABS: ANION GAP 7 mEq/L (8-16); POTASSIUM 3.5 mEq/L (3.5-5.2)
[2016-08-28] MEDS: HEPARIN 5,000 UNIT/0.5 ML SYR SC SCH ×3 (06:41→21:46)
[2016-08-28] MEDS: VANCOMYCIN HCL/NORMAL SALINE 250 ML IV SCH ×2 (07:33→18:58)
[2016-08-28] MEDS: ACETAMINOPHEN 325 MG TAB PO PRN ×5 (07:39→18:57)
--- NOTE | 2016-08-28 08:33 | HOSPPROG ---
Hospitalist Progress Note Assessment/Plan: #Acute encephalopathy: acutely more confused/somnolent today. UA positive, but negative culture. Meningitis/encephalitis? Cont abx. Dr. Jain to resend CSF studies #Fever: resolved. Urine cx c/w contamination. 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 Repeat CT 08/25 with persistent hydrocephalus ventric open today, july trial #Indeterminate troponin -no WMA on TTE #Deconditioning: walking unit with PT. #Poor appetite: feeding tube not successful. #Acute hypoxic resp failure: dry cough. Suspect atelectasis. Afebrile. #Diet: regular #DVT ppx: SQH #Goals: spoke with daughter today explaining poor prognostic signs with delirium , age and minimal PO intake. Discussed TPN vs. PEG and whether pt would want that. I explained role of palliative care/hospice. Agreeable for palliative meeting tomorrow morning Time spent on visit: 60 min in which 15 min bedside with pt and 45min counseling daughter on palliative care and d/w Dr. Jain. Subjective: difficult to arouse this morn. Did not sleep well per son Objective: Vital Signs Temp Pulse Resp BP Pulse Ox 36.9 C 80 18 148/56 H 96 08/28/16 08:00 08/28/16 08:00 08/28/16 08:00 08/28/16 08:00 08/28/16 08:00 Microbiology 08/26/16 20:05 Gram Stain - Final Csf From Shunt Laboratory Results 08/28/16 05:37 08/28/16 05:37 08/27/16 08/28/16 08/29/16 05:59 05:59 05:59 Intake Total 1152 2924 Output Total 66 34 4 Balance 1086 2890 -4 PT 13.7 SEC (12.0-15.0) 08/19/16 05:12 INR 1.06 (0.83-1.16) 08/19/16 05:12 - Physical Exam Constitutional: other (somnolent, difficult to arouse even with sternal rub) Ears, Nose, Mouth, Throat: moist mucous membranes, dry mucous membranes Cardiovascular: regular rate and rhythym, no murmur, rub, or gallop Respiratory: no respiratory distress Gastrointestinal: normoactive bowel sounds, soft, non-tender abdomen Genitourinary: no bladder fullness Skin: warm Musculoskeletal: generalized weakness Neurologic: other (alert to [place] only. Not date, hospital) Psychiatric: encephalopathic ICD10 Worksheet Patient Problems: Problems Problem Status Onset Constipation Acute Vomiting Acute
[2016-08-28] MEDS: CEFEPIME HCL 2 GM in D5W 100 ML IV SCH ×2 (09:01→21:13)
[2016-08-28] MEDS: FAMOTIDINE 20 MG/NACL 50 ML IV SCH (09:44)
[2016-08-28] MEDS: MULTIVITAMINS 1 EACH TAB PO SCH (10:05)
[2016-08-28] MEDS: CALCIUM CARBONATE 500 MG TAB PO SCH ×2 (10:05→21:13)
--- NOTE | 2016-08-28 10:31 | NEUSURGPN ---
Date of Surgery: 08/18/16 Post Op Day: 10 Assessment/Plan: Assessment: 89y/o female with AMS and likely ruptured AComm that is s/p ACOMM coiling Plan: -Continue Nimotop -SBP goal as ordered -Draw CSF for GS/Culture, cell count, protein/glucose -Will clamp drain after CSF sent -Continue IVF at 100/hr -continue to work on mobilizing pt with PT/OT -Q2hour neuro checks -Only wake up once at night -Please notify NS with any change in neuro/motor exam Subjective: Patient sitting in chair this am, patient only oriented to self this am. Objective: -Oriented to self, and President "whose name will not be mentioned" difficult to keep eyes open -full strength -no drift -sensation intact Neuro Check Frequency: per routine Urinary Catheter in Place: No Catheter Insertion Date: 08/18/16 - Physician Discussed Patient with : Susy Neurosurgery Physical Exam - Vitals, I&O, Labs I and O 08/27/16 08/28/16 08/29/16 05:59 05:59 05:59 Intake Total 1152 2924 Output Total 66 34 4 Balance 1086 2890 -4 Intake: Oral (ml) 500 850 IV Intake (ml) 652 IV Infused (ml) 2074 Ns 1,000 ml @ 100 mls/hr 2074 IV CONT ARTEMIO Rx#: [id number] Output: CSF Drainage Amount 66 34 4 Ventriculostomy 66 20 4 Ventriculostomy 1 14 Other: Number of Voids Toilet 1 3 Number of Stools Toilet 1 Microbiology 08/26/16 20:05 Gram Stain - Final Csf From Shunt Vital Signs Temp Pulse Resp BP Pulse Ox 36.9 C 80 18 148/56 H 96 08/28/16 08:00 08/28/16 08:00 08/28/16 08:00 08/28/16 08:00 08/28/16 08:00 Laboratory Results 08/28/16 05:37 08/28/16 05:37 ICD10 Worksheet Patient Problems: Problems Problem Status Onset Constipation Acute Vomiting Acute
--- NOTE | 2016-08-28 11:18 | PCMIDPN ---
Assessment/Plan: Assessment: Fever-unclear etiology. Patient is status post intracranial hemorrhage with ventriculostomy drainage. She has been afebrile apart from a single fever at 4: 00 p.m. on 08/26. Her blood cultures are negative so far. Her urine culture shows polymicrobial growth at low colony counts consistent with contamination. Her spinal fluid cultures are also negative so far. At this point it is likely that her fever was spur E a sore secondary to degradation of blood cells within the intracranial hemorrhage area which can spur localized inflammation and cause transient fevers. Nevertheless we are being conservative in covering her with vancomycin and cefepime empiric regimen. Her trough level of vancomycin at 12.4 is reasonable at this point. Will continue to monitor. Plan: 1. Continue both vancomycin and cefepime. 2. Follow fever curve and clinical course. Subjective: Patient is sitting up in her chair. She is more communicative today than reportedly she was yesterday or the day before. No fevers in the last 24 hours. Appears to be tolerating both vancomycin and cefepime without issue. Objective: Vancomycin #1 Cefepime #1 Vital Signs Temp Pulse Resp BP Pulse Ox 36.9 C 71 18 143/69 H 95 08/28/16 08:00 08/28/16 10:00 08/28/16 10:00 08/28/16 10:00 08/28/16 10:00 Microbiology 08/26/16 20:05 Gram Stain - Final Csf From Shunt Laboratory Results 08/28/16 05:37 08/28/16 05:37 08/27/16 08/28/16 08/29/16 05:59 05:59 05:59 Intake Total 1152 2924 Output Total 66 34 4 Balance 1086 2890 -4 - Physical Exam General Appearance: WD/WN, alert, no apparent distress, non-toxic, other ( Mildly confused) Respiratory: lungs clear, normal breath sounds, No respiratory distress Cardiac/Chest: regular rate, rhythm, No tachycardia Skin: normal color, warm/dry, No rash Neuro/Psych: alert, normal mood/affect ICD10 Worksheet Patient Problems: Problems Problem Status Onset Constipation Acute Vomiting Acute
--- NOTE | 2016-08-28 13:43 | PDINTPN ---
[facility] Progress Note Assessment/Plan: Assessment: * SAH- 2/2 VICTORIA aneurysm s/p coils 08/19/16. Remains stable. Ventriculostomy remains in place for ongoing slight bloody output. PT/OT, pulmonary toilet. Remains on Nimotop; [place] better. On Vanco * Troponin- agree likely stress related and no further workup indicated. * Constipation- resolved * Hypoxia- Improved * Nutrition: Getting only a fraction of her daily nutritional needs for the past 9 days. She refuses TF. * Prophylaxis: On famotidine * UTI: Started CTX, now changed to Cefepime Plan: Continue calorie count. If inadequate PO, probably should place feeding tube, but she refused yesterday. If her PO doesn't improve and she continues to refuse feeding tube, she probably won't survive. Continue H2 cleopatra, Cefepime. Increase activity as tolerated. Continue ventric drainage. ? place shunt if still having symptoms with clamping ventriculostomy drain. 08/28/16 13:43 Subjective: Feels OK, strength a bit better, but still with poor appetite. Denies pain. Objective: Vital Signs Temp Pulse Resp BP Pulse Ox 36.8 C 69 20 114/57 L 96 08/28/16 12:00 08/28/16 12:00 08/28/16 12:00 08/28/16 12:00 08/28/16 12:00 Microbiology 08/26/16 20:05 Gram Stain - Final Csf From Shunt Laboratory Results 08/28/16 05:37 08/28/16 05:37 08/27/16 08/28/16 08/29/16 05:59 05:59 05:59 Intake Total 1152 2924 Output Total 66 34 4 Balance 1086 2890 -4 PT 13.7 SEC (12.0-15.0) 08/19/16 05:12 INR 1.06 (0.83-1.16) 08/19/16 05:12 Physical Exam - Physical Exam General Appearance: alert, no apparent distress EENT: normal ENT inspection Neck: normal inspection Respiratory: lungs clear, normal breath sounds Cardiac/Chest: regular rate, rhythm, No edema Abdomen: normal bowel sounds, non-tender Skin: normal color, warm/dry Extremities: normal inspection Neuro/Psych: No alert, No normal mood/affect (lethargic, poor attention) ICD10 Worksheet Patient Problems: Problems Problem Status Onset Constipation Acute Vomiting Acute
[2016-08-28 14:22] LABS: CSF COLOR SLIGHTLY PINK (COLORLESS)
[2016-08-28 14:23] LABS: CSF APPEARANCE HAZY (CLEAR); WBC, CSF 700 /mm3 (0-5)
[2016-08-28 14:24] LABS: CSF SUPERNATANT XANTHOCHROMIC (COLORLESS)
[2016-08-28 14:55] LABS: PROTEIN, CSF 95 mg/dL (12-60)
[2016-08-28] MEDS: MELATONIN 3 MG TAB PO SCH (21:13)
[2016-08-28] MEDS: POLYETHYLENE GLYCOL 3350 17 GM PKT PO SCH (21:13)
[2016-08-29] MEDS: niMODipine 33.333 MG/ML UDL PO SCH ×6 (01:20→19:18)
[2016-08-29] MEDS: HEPARIN 5,000 UNIT/0.5 ML SYR SC SCH ×3 (05:34→21:22)
[2016-08-29] MEDS: ACETAMINOPHEN 325 MG TAB PO PRN ×2 (05:51→23:11)
[2016-08-29 06:16] LABS: HEMATOCRIT 38.8 % (38.0-47.0); MEAN CELL HEMOGLOBIN 31.3 pg (27.9-34.1); MEAN CELL HEMOGLOBIN CONCENTR. 33.5 g/dL (32.4-36.7); MEAN CELL VOLUME 93.5 fL (81.5-99.8); RED BLOOD CELL COUNT 4.15 10^6/uL (4.18-5.33); RED CELL DISTRIBUTION WIDTH 13.3 % (11.5-15.2)
[2016-08-29 07:24] LABS: ANION GAP 9 mEq/L (8-16); CALCIUM 8.8 mg/dL (8.5-10.4); CARBON DIOXIDE 23 mEq/l (22-31); CHLORIDE 105 mEq/L (97-110); CREATININE 0.6 mg/dL (0.6-1.0); GLOMERULAR FILTRATION RATE > 60; GLUCOSE 108 mg/dL (70-100); POTASSIUM 3.1 mEq/L (3.5-5.2); SODIUM 137 mEq/L (134-144)
[2016-08-29] MEDS: VANCOMYCIN HCL/NORMAL SALINE 250 ML IV SCH ×2 (07:50→19:17)
--- NOTE | 2016-08-29 08:15 | NEUSURGPN ---
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 Denies pain. Objective: -Oriented year -full strength -no drift -sensation intact Neuro Check Frequency: per routine Urinary Catheter in Place: No Catheter Insertion Date: 08/18/16 - Physician Discussed Patient with Dr.: Jain Neurosurgery Physical Exam - Vitals, I&O, Labs I and O 08/28/16 08/29/16 08/30/16 05:59 05:59 05:59 Intake Total 2924 3313 Output Total 34 6 Balance 2890 3307 Weight 58 kg Intake: Oral (ml) 850 950 IV Infused (ml) 2074 2363 Ns 1,000 ml @ 100 mls/hr 4 2363 IV CONT ARTEMIO Rx#: [id number] Output: CSF Drainage Amount 34 6 Ventriculostomy 20 6 Ventriculostomy 1 14 Other: Number of Voids Toilet 3 1 Number of Stools Toilet 1 Microbiology 08/28/16 12:30 Gram Stain - Final Cerebral Spinal Fluid 08/26/16 20:05 Gram Stain - Final Csf From Shunt Vital Signs Temp Pulse Resp BP Pulse Ox 36.7 C 71 20 150/53 H 95 08/28/16 16:00 08/29/16 06:00 08/29/16 06:00 08/29/16 06:00 08/29/16 06:00 Laboratory Results 08/29/16 06:00 08/29/16 06:00 ICD10 Worksheet Patient Problems: Problems Problem Status Onset Constipation Acute Vomiting Acute
[2016-08-29] MEDS: FAMOTIDINE 20 MG/NACL 50 ML IV SCH (09:04)
[2016-08-29] MEDS: CALCIUM CARBONATE 500 MG TAB PO SCH ×3 (09:04→21:22)
[2016-08-29] MEDS: MULTIVITAMINS 1 EACH TAB PO SCH ×2 (09:04→19:18)
[2016-08-29] MEDS: CEFEPIME HCL 2 GM in D5W 100 ML IV SCH ×2 (09:05→21:21)
--- NOTE | 2016-08-29 09:46 | PCMIDPN ---
Assessment/Plan: # SAH s/p coiling 08/19, ventric still in place - planned removal today # Fever 08/26 - none since, mild leukocytosis that has now resolved. CXR without convincing infiltrate and nl O2 sats, Ucx and blood cx neg; query ventriculitis versus shunt infection - difficult interpretation of cell counts, corrected csf wbc ~370, CSF cultures neg to date. --dc shunt today --if cx remain neg tomorrow dc cefepime --re-assess tomorrow if appropriate to treat for shunt infection with vanco empirically # abdominal pain, left lower quadrant, unclear significance, no diarrhea - continue to monitor antibiotics 08/26 ceftriaxone 08/27 cefepime 2gm IV q12+ vanco 1gm IV q12, # [address] Jose Antonio Jain and Dr. Oren Barker Subjective: awake but confused family at bedside c/o abdominal pain no diarrhea reported Objective: Vital Signs Temp Pulse Resp BP Pulse Ox 36.7 C 70 18 144/53 H 95 08/29/16 08:00 08/29/16 08:00 08/29/16 08:00 08/29/16 08:00 08/29/16 08:00 Microbiology 08/28/16 12:30 Gram Stain - Final Cerebral Spinal Fluid 08/26/16 20:05 Gram Stain - Final Csf From Shunt Laboratory Results 08/29/16 06:00 08/29/16 06:00 08/28/16 08/29/16 08/30/16 05:59 05:59 05:59 Intake Total 2924 3313 Output Total 34 6 Balance 2890 3307 - Physical Exam General Appearance: alert, no apparent distress, other (ventric R head, CSF clear) Respiratory: lungs clear, No accessory muscle use Neck: supple Cardiac/Chest: regular rate, rhythm Extremities: other (bruising LUE), No pedal edema Abdomen: non-tender, soft, other (Discomfort left lower quadrant to deep palpation) Skin: No rash Neuro/Psych: alert, confused ICD10 Worksheet Patient Problems: Problems Problem Status Onset Constipation Acute Vomiting Acute
--- NOTE | 2016-08-29 11:18 | PDINTPN ---
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 Remains stable. Ventriculostomy remains in place for ongoing slight bloody output. PT/OT, pulmonary toilet. Remains on Nimotop; [place] better. On Vanco * Possible infection of Ventricular drain: Culture negative * Constipation- resolved * Hypoxia- Improved * Nutrition: Getting only a fraction of her daily nutritional needs for the past 10 days. She refuses TF. * Prophylaxis: On famotidine * Pyuria: Culture unremarkable. Plan: Continue calorie count. If inadequate PO, probably should place feeding tube, but she refused yesterday. If her PO doesn't improve and she continues to refuse feeding tube, she probably won't survive. Palliative care consult today. Continue H2 cleopatra, Cefepime. Increase activity as tolerated. ? D/C shunt today , hopefully mental status will improve if this was infected. 08/29/16 12:41 Subjective: Weak. Denies pain. Still with minimal appetite. Objective: Vital Signs Temp Pulse Resp BP Pulse Ox 36.7 C 66 17 153/60 H 91 L 08/29/16 08:00 08/29/16 10:00 08/29/16 10:00 08/29/16 10:00 08/29/16 10:00 Microbiology 08/27/16 02:21 Urine Culture - Final Urine,Clean Catch Gram Negative Crow Three [place] Types 08/28/16 12:30 Gram Stain - Final Cerebral Spinal Fluid 08/26/16 20:05 Gram Stain - Final Csf From Shunt Laboratory Results 08/29/16 06:00 08/29/16 06:00 08/28/16 08/29/16 08/30/16 05:59 05:59 05:59 Intake Total 2924 3313 Output Total 34 6 Balance 2890 3307 PT 13.7 SEC (12.0-15.0) 08/19/16 05:12 INR 1.06 (0.83-1.16) 08/19/16 05:12 CTH: No change. Images reviewed. Microbiology 08/27/16 02:21 Urine,Clean Catch Urine Culture - Final Gram Negative Crow Three [place] Types 08/26/16 20:05 Csf From Shunt Gram Stain - Final 08/26/16 20:05 Csf From Shunt CSF Culture - Preliminary Physical Exam - Physical Exam General Appearance: alert, no apparent distress EENT: normal ENT inspection, other (Ventric drain in place) Neck: normal inspection Respiratory: lungs clear Cardiac/Chest: regular rate, rhythm, No edema Abdomen: non-tender, soft Skin: normal color, warm/dry Extremities: normal inspection Neuro/Psych: alert, normal mood/affect, oriented x 3 ICD10 Worksheet Patient Problems: Problems Problem Status Onset Constipation Acute Vomiting Acute
[2016-08-29] MEDS ORDERED: POTASSIUM Cl (KCl) 40 MEQ in NS 1,000 ML IV SCH (16:00)
--- NOTE | 2016-08-29 16:56 | PDPCPN ---
Palliative Care Progress Note Assessment/Plan: Referring provider: Dr Ellis Reason for consult: Complex medical decision making Symptom control HPI: Subha Fatima is a 89 yo female with no significant PMH admitted to the hospital with abdominal pain, nausea/vomiting and headache. Found to have severe constipation. 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 S/p evacuation with intital improvement in status but hospitalization complicated by acute confusion, fevers , and poor appetite. Passed swallow eval but with continue poor appetite and unable to place NG tube due to pt discomfort. Still with EVdrain with plans for possible removal today. Palliative care consulted for complex medical decision making. Met with Babar, 2 sons, 2 daughters and SAVANAH outside of the room. Family described Subha as a very active and independent person prior to her hospitalization. She often walked miles per day and was a great cook. Lidia have traveled extensively to [place] countries and especially loved fishing. Her family notes prior to hospitalization she had some mild short term memory loss and Babar and Subha went to a few Alzheimer's talks but she was never dx. 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 We discussed at length delirium with unknown recovery but it is complicating her current care. Her family feels she would not want to just "exist" without having meaningful interactions with people but if she were just physically impaired than she would want life prolongation. We talked about options including continuing with current level of care to see if she can continue to improve vs comfort care only. They feel she needs more time to see if she can recover and eat again. They would like her to have nutritional support while she recovers. She has never been a big eater per family and poor appetite has been ongoing since before the aneurysm repair. Discussed with Dr Barker and Dr Guzman family's wishes for continued artificial nutrition support and ongoing care to see if she can recover. Family discussed if her mental status continues to be poor or she continues to decline then they would like to have another discussion about possible comfort care only. Assessment: Physical: - Pain: headache - tylenol PRN - poor appetite - encourage general diet - might consider adding medications if appetite is poor but avoid for now as can complicate cognition - constipation - dulcolax supp daily PRN Emotional/psychological: acute confusion: continue normal routines with normal sleep/wake cycles - try to limit medical interruptions at night Advanced Care Planning: Is patient decisional?: no Code Status: Full MD POA: Babar is MDPOA. Plan: Will continue to follow with family to support goals of quality of life along with recovery. Subjective: ok Objective: Social History: to Babar. 4 children all involved. Some from out of state Medication list reviewed ROS: General: fatigue, weakness, weight loss ENT: negative Resp: negative GI: poor appetite, constipation : negative MS: occasional headache Skin: negative Neuro: negative Psych: confusion Functional assessment: PPS: 40% Functional status: dependent on ADLs, IADLs Vital Signs Temp Pulse Resp BP Pulse Ox 36.7 C 74 14 164/71 H 95 08/29/16 08:00 08/29/16 14:00 08/29/16 14:00 08/29/16 14:00 08/29/16 14:00 Microbiology 08/28/16 12:30 Gram Stain - Final Cerebral Spinal Fluid 08/26/16 20:05 Gram Stain - Final Csf From Shunt 08/27/16 02:21 Urine Culture - Final Urine,Clean Catch Gram Negative Crow Three [place] Types Laboratory Results 08/29/16 06:00 08/29/16 06:00 08/28/16 08/29/16 08/30/16 05:59 05:59 05:59 Intake Total 2924 3313 Output Total 34 6 Balance 2890 3307 PT 13.7 SEC (12.0-15.0) 08/19/16 05:12 INR 1.06 (0.83-1.16) 08/19/16 05:12 Physical Exam - Physical Exam General Appearance: other (able to state yes/no to some questions. ) Respiratory: No respiratory distress, No accessory muscle use Skin: normal color, warm/dry Extremities: No pedal edema Neuro/Psych: disoriented to place, disoriented to time, other (confusion and tired ) ICD10 Worksheet Patient Problems: Problems Problem Status Onset Constipation Acute Palliative care encounter Acute Vomiting Acute - ICD10 Problem Qualifiers (1) Palliative care encounter
--- NOTE | 2016-08-29 17:22 | HOSPPROG ---
Hospitalist Progress Note Assessment/Plan: assessment: 89-year-old female presents with acute encephalopathy in the setting of ruptured anterior communicating artery Plan: #Acute encephalopathy: evidenced by global brain dysfunction w/ confusion, disorientation, somnolence, all of which are an acute change from baseline, 2/2 either infected ventric-catheter vs. 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, repeat CT with persistent hydrocephalus #Indeterminate troponin - no WMA on TTE #Atelectasis: resulting in hypoxia and supplemental oxygen, has been weaned, cont IS #Diet: regular w/ supplements if tolerates #DVT ppx: SCDs #Code: Full at present #Dispo: ADD uncertain, remains critically ill Subjective: Counseled and son that patient's oral intake is poor, this will be further expand upon at palliative care meeting today patient's level of interactive this seems to be fluctuating and her poor oral intake seems to be reflection of this Objective: Vital Signs Temp Pulse Resp BP Pulse Ox 36.7 C 74 14 164/71 H 95 08/29/16 08:00 08/29/16 14:00 08/29/16 14:00 08/29/16 14:00 08/29/16 14:00 Microbiology 08/26/16 20:05 Gram Stain - Final Csf From Shunt CSF Culture - Final 08/28/16 12:30 Gram Stain - Final Cerebral Spinal Fluid 08/27/16 02:21 Urine Culture - Final Urine,Clean Catch Gram Negative Crow Three [place] Types Laboratory Results 08/29/16 06:00 08/29/16 06:00 08/28/16 08/29/16 08/30/16 05:59 05:59 05:59 Intake Total 2924 3313 Output Total 34 6 Balance 2890 3307 PT 13.7 SEC (12.0-15.0) 08/19/16 05:12 INR 1.06 (0.83-1.16) 08/19/16 05:12 - Time Spent With Patient Time Spent with Patient: greater than 35 minutes Time Spent with Patient: Greater than 35 minutes spent on this patients care, greater than 50% of time spent counseling, educating, and coordinating care regarding the above mentioned plan. - Physical Exam Constitutional: no apparent distress, not in pain, No uncomfortable Cardiovascular: regular rate and rhythym, no murmur, rub, or gallop, No edema Respiratory: no respiratory distress, no rales or rhonchi, clear to auscultation Gastrointestinal: normoactive bowel sounds, soft, non-tender abdomen, no palpable masses Neurologic: sensation intact bilaterally, other ( alert awake oriented x1 only to person), No weakness ( motor strength 5/5 bilateral upper and lower extremities), No facial droop Psychiatric: flat affect, other ( somnolent but arousable, concentration is 0/7) ICD10 Worksheet Patient Problems: Problems Problem Status Onset Vomiting Acute Constipation Acute Palliative care encounter Acute
[2016-08-29] MEDS: POTASSIUM Cl (KCl) 40 MEQ in D5W NS 1,000 ML IV SCH (21:21)
[2016-08-29] MEDS: POLYETHYLENE GLYCOL 3350 17 GM PKT PO SCH (21:22)
[2016-08-29] MEDS: MELATONIN 3 MG TAB PO SCH (21:22)
[2016-08-30] MEDS ORDERED: LORazepam 2 MG/ML INJ IVP PRN (00:13)
[2016-08-30] MEDS: HEPARIN 5,000 UNIT/0.5 ML SYR SC SCH ×3 (06:02→21:21)
[2016-08-30] MEDS: niMODipine 33.333 MG/ML UDL PO SCH ×5 (06:03→21:22)
[2016-08-30 07:03] LABS: % IMMATURE GRANULYOCYTES 1.6 % (0.0-1.1); ABSOLUTE IMMATURE GRANULOCYTES 0.16 10^3/uL (0.00-0.10); ADD DIFF? NO; ADD MORPH? NO; ADD SCAN? NO; ATYPICAL LYMPHOCYTE FLAG 10 (0-99); FRAGMENT RBC FLAG 0 (0-99); HEMATOCRIT 38.7 % (38.0-47.0); HEMOGLOBIN 12.8 g/dL (12.6-16.3); LEFT SHIFT FLG 10 (0-99); LIPEMIA HEMOLYSIS FLAG 80 (0-99); MEAN CELL HEMOGLOBIN 30.8 pg (27.9-34.1); MEAN CELL HEMOGLOBIN CONCENTR. 33.1 g/dL (32.4-36.7); MEAN CELL VOLUME 93.3 fL (81.5-99.8); MEAN PLATELET VOLUME 9.9 fL (8.7-11.7); PLATELET CLUMPS FLAG 0 (0-99); PLATELET COUNT 320 10^3/uL (150-400); RED BLOOD CELL COUNT 4.15 10^6/uL (4.18-5.33); RED CELL DISTRIBUTION WIDTH 13.5 % (11.5-15.2)
[2016-08-30] MEDS: VANCOMYCIN HCL/NORMAL SALINE 250 ML IV SCH ×2 (07:47→19:38)
[2016-08-30 07:55] LABS: ANION GAP 13 mEq/L (8-16); CALCIUM 8.8 mg/dL (8.5-10.4); CARBON DIOXIDE 21 mEq/l (22-31); CHLORIDE 108 mEq/L (97-110); CREATININE 0.5 mg/dL (0.6-1.0); GLOMERULAR FILTRATION RATE > 60; GLUCOSE 130 mg/dL (70-100); POTASSIUM 3.5 mEq/L (3.5-5.2); SODIUM 142 mEq/L (134-144)
[2016-08-30] MEDS: CALCIUM CARBONATE 500 MG TAB PO SCH ×2 (09:13→21:21)
[2016-08-30] MEDS: CEFEPIME HCL 2 GM in D5W 100 ML IV SCH ×2 (09:15→21:23)
[2016-08-30] MEDS: MULTIVITAMINS 1 EACH TAB PO SCH (09:15)
[2016-08-30] MEDS: FAMOTIDINE 20 MG/NACL 50 ML IV SCH (09:15)
[2016-08-30] MEDS ORDERED: NS 500 ML IV PRN (09:23)
[2016-08-30] MEDS: DEXMEDETOMIDINE HCL 400 MCG in NS 100 ML IV SCH (09:38)
[2016-08-30] MEDS ORDERED: OLANZapine DISINTEGR 5 MG TAB PO PRN (10:40)
--- NOTE | 2016-08-30 13:11 | PDINTPN ---
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 Remains stable. Ventriculostomy removed, now with pneumocephalus. PT/OT, pulmonary toilet. Remains on Nimotop; [place] better. On Vanco * Possible infection of Ventricular drain: Culture negative * Constipation- resolved * Hypoxia- Improved * Nutrition: Getting only a fraction of her daily nutritional needs for the past 10 days. She refuses TF. Per palliative consult, family feels that she should be supported for about 5 days (about 2 weeks total), then they would not want aggressive nutritional support such as a feeding tube. I don't think that TPN for a few days would be that beneficial, and a PICC would have to be placed , so will hold off on TPN and encourage PO. * Prophylaxis: On famotidine * Pyuria: Culture unremarkable. * Delerium: Slept poorly, last night this may have been due to [place] from pneumocephalus as well as urinary retention. Now started on Precedex during the day and is somnolent. Plan: Continue calorie count. If her PO doesn't improve and she continues to refuse feeding tube, she probably won't survive. Continue H2 cleopatra, Cefepime, Vanco. Increase activity as tolerated, increase daytime light exposure, and minimize light/noise/interruptions at night. Avoid benzos. Start intermittent oxygen to help with pneumocephalus. 08/30/16 13:12 08/30/16 13:26 Subjective: More somnolent. Slept poorly, with agitation. Objective: Vital Signs Temp Pulse Resp BP Pulse Ox 36.4 C 62 16 160/55 H 97 08/30/16 10:50 08/30/16 10:50 08/30/16 10:50 08/30/16 10:50 08/30/16 10:50 Microbiology 08/28/16 12:30 Gram Stain - Final Cerebral Spinal Fluid 08/26/16 20:05 Gram Stain - Final Csf From Shunt CSF Culture - Final 08/27/16 02:21 Urine Culture - Final Urine,Clean Catch Gram Negative Crow Three [place] Types Laboratory Results 08/30/16 06:50 08/30/16 06:50 08/29/16 08/30/16 08/31/16 05:59 05:59 05:59 Intake Total 3313 2308 Output Total 6 2750 550 Balance 3307 -442 -550 PT 13.7 SEC (12.0-15.0) 08/19/16 05:12 INR 1.06 (0.83-1.16) 08/19/16 05:12 CTH: Pneumocephalus. Otherwise unchanged. Images reviewed. Physical Exam - Physical Exam General Appearance: other (sleepy, mildly agitated, not responding to questions. ) EENT: normal ENT inspection Neck: normal inspection Respiratory: lungs clear, No normal breath sounds Cardiac/Chest: normal peripheral pulses, regular rate, rhythm, No edema Abdomen: normal bowel sounds, non-tender Skin: normal color, warm/dry Extremities: normal inspection Neuro/Psych: No alert, No normal mood/affect, No oriented x 3, No motor weakness ICD10 Worksheet Patient Problems: Problems Problem Status Onset Constipation Acute Palliative care encounter Acute Vomiting Acute
[2016-08-30] MEDS: POTASSIUM Cl (KCl) 40 MEQ in D5W NS 1,000 ML IV SCH (14:09)
--- NOTE | 2016-08-30 14:25 | NEUSURGPN ---
Date of Surgery: 08/18/16 Post Op Day: 12 Assessment/Plan: Assessment: 89y/o female with AMS and likely ruptured AComm that is s/p ACOMM coiling Plan: -Continue Nimotop -SBP goal as ordered -CT brain no contrast this am r/t increased agitation/confusion s/p EVD removal yesterday, bilateral ventriculomegaly is similar to prior studies -Medicine starting low dose Precedex to help with agitation, discussed with Dr Jain -Patient continues to have poor calorie intake -Family considering palliative care -Continue antibiotics per ID -Continue IVF at 100/hr -Q2hour neuro checks -Only wake up once at night -Please notify NS with any change in neuro/motor exam -Dr Berger saw patient today as well Subjective: Unable to obtain Objective: Unable to obtain motor exam PERRLA Neuro Check Frequency: per routine Urinary Catheter in Place: Yes Urinary Catheter Indication: Other (Use Comment) (retention) Catheter Insertion Date: 08/30/16 - Physician Discussed Patient with DrKimber: Ab Patient Seen by : Ab Neurosurgery Physical Exam - Vitals, I&O, Labs I and O 08/29/16 08/30/16 08/31/16 05:59 05:59 05:59 Intake Total 3313 2308 Output Total 6 2750 900 Balance 3307 -442 -900 Weight 58 kg 58.2 kg 58.2 kg Intake: Oral (ml) 950 IV Infused (ml) 2363 2308 Ns 1,000 ml @ 100 mls/hr 2363 1346 IV CONT ARTEMIO Rx#: [id number] POTASSIUM Cl (KCl) 40 meq 962 In D5w Ns 1,000 ml @ 100 mls/hr IV CONT ARTEMIO Rx#: [id number] Output: Urine (ml) 2750 900 Bedside Commode 800 Catheter 1950 900 CSF Drainage Amount 6 Ventriculostomy 6 Other: Number of Voids Incontinence 1 Toilet 1 3 Number of Stools Toilet 1 Microbiology 08/28/16 12:30 Gram Stain - Final Cerebral Spinal Fluid 08/26/16 20:05 Gram Stain - Final Csf From Shunt CSF Culture - Final 08/27/16 02:21 Urine Culture - Final Urine,Clean Catch Gram Negative Crow Three [place] Types Vital Signs Temp Pulse Resp BP Pulse Ox 36.4 C 72 16 144/46 H 100 08/30/16 10:50 08/30/16 14:05 08/30/16 14:05 08/30/16 14:05 08/30/16 14:05 Laboratory Results 08/30/16 06:50 08/30/16 06:50 ICD10 Worksheet Patient Problems: Problems Problem Status Onset Constipation Acute Palliative care encounter Acute Vomiting Acute
[2016-08-30] MEDS: ACETAMINOPHEN 650 MG SUPP PR PRN (14:57)
--- NOTE | 2016-08-30 17:33 | HOSPPROG ---
Hospitalist Progress Note Assessment/Plan: assessment: 89-year-old female presents with acute encephalopathy in the setting of ruptured anterior communicating artery Plan: #Acute encephalopathy: worsening today, evidenced by global brain dysfunction w / confusion, disorientation, somnolence, all of which are an acute change from baseline, 2/2 either infected ventric-catheter vs. structural from arterial rupture - waxing/waning, resulting in poor oral intake - patient consistently refusing NG tube - potentially worsening this AM from poor sleep + pneumocephalus on HCT - patient's prognosis is worsening, but counseled family on rounds today, we decided w/ family to continue pursuing supportive care and monitor for signs of further decline vs. 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, repeat CT with persistent hydrocephalus and now w/ pneumocephalus s/p EVD removal - HOB elevated, o2 #Indeterminate troponin - no WMA on TTE #Atelectasis: resulting in hypoxia and supplemental oxygen, has been weaned, cont IS #Diet: regular w/ supplements if tolerates #DVT ppx: hep SC #Code: Full at present #Dispo: ADD uncertain, remains critically ill Subjective: Expressing head pain overnight and this morning, patient distressed , now somnolent, did not respond to morphine or Ativan Objective: Vital Signs Temp Pulse Resp BP Pulse Ox 36.9 C 68 16 129/56 H 97 08/30/16 16:00 08/30/16 16:00 08/30/16 16:00 08/30/16 16:00 08/30/16 16:00 Microbiology 08/28/16 12:30 Gram Stain - Final Cerebral Spinal Fluid 08/26/16 20:05 Gram Stain - Final Csf From Shunt CSF Culture - Final Laboratory Results 08/30/16 06:50 08/30/16 06:50 08/29/16 08/30/16 08/31/16 05:59 05:59 05:59 Intake Total 3313 2308 Output Total 6 2750 1000 Balance 3307 -442 -1000 PT 13.7 SEC (12.0-15.0) 08/19/16 05:12 INR 1.06 (0.83-1.16) 08/19/16 05:12 - Time Spent With Patient Time Spent with Patient: greater than 35 minutes Time Spent with Patient: Greater than 35 minutes spent on this patients care, greater than 50% of time spent counseling, educating, and coordinating care regarding the above mentioned plan. - Physical Exam Constitutional: other (resting more comfortably) Cardiovascular: regular rate and rhythym, no murmur, rub, or gallop Respiratory: no respiratory distress, no rales or rhonchi, clear to auscultation Gastrointestinal: normoactive bowel sounds, soft, non-tender abdomen, no palpable masses Neurologic: other (AAOx1 person only) Psychiatric: other (following some commands, somnolent but arousable to voice) ICD10 Worksheet Patient Problems: Problems Problem Status Onset Vomiting Acute Constipation Acute Palliative care encounter Acute
--- NOTE | 2016-08-30 18:50 | PCMIDPN ---
Assessment/Plan: Assessment: Fever-unclear etiology. Patient is status post intracranial hemorrhage with ventriculostomy drainage. She has been afebrile apart from a single fever at 4: 00 p.m. on 08/26. Her blood cultures remain negative. She had her ventriculostomy removed yesterday. Repeat cell count from that ventriculostomy shows a lower ratio of white cells too red cells indicating a decreased possibility of inflammation. CSF from 08/26 is negative on final read. CSF from 08/28 is no growth to date. Suspect this singular fever was from breakdown of blood products within the brain. At this point would continue vancomycin and cefepime for 24-48 more hours before discontinuation given the question of whether the ventriculostomy may need to be replaced secondary to reaccumulated hydrocephalus. Plan: 1. Continue both vancomycin and cefepime. 2. Follow fever curve and clinical course. Subjective: Patient is fairly somnolent in her bed. She is sleeping but she is easily awakened. She is verbally communicative but does not speak extensively. She denies any new complaint. She denies any pain. Denies fever chills. Objective: Vancomycin # 3 Cefepime # 3 Vital Signs Temp Pulse Resp BP Pulse Ox 36.9 C 61 18 154/63 H 100 08/30/16 18:08 08/30/16 18:08 08/30/16 18:08 08/30/16 18:08 08/30/16 18:08 Microbiology 08/28/16 12:30 Gram Stain - Final Cerebral Spinal Fluid 08/26/16 20:05 Gram Stain - Final Csf From Shunt CSF Culture - Final Laboratory Results 08/30/16 06:50 08/30/16 06:50 08/29/16 08/30/16 08/31/16 05:59 05:59 05:59 Intake Total 3313 2308 1060.7 Output Total 6 8530 1150 Balance 3307 -442 -89.3 - Physical Exam General Appearance: WD/WN, no apparent distress, thin, non-toxic, No alert (But arousable) Respiratory: lungs clear, normal breath sounds, No respiratory distress Cardiac/Chest: regular rate, rhythm, No tachycardia, No systolic murmur Extremities: non-tender, normal inspection Skin: normal color, warm/dry, No rash ICD10 Worksheet Patient Problems: Problems Problem Status Onset Constipation Acute Palliative care encounter Acute Vomiting Acute
[2016-08-30] MEDS: MELATONIN 3 MG TAB PO SCH (21:21)
[2016-08-30] MEDS: POLYETHYLENE GLYCOL 3350 17 GM PKT PO SCH (21:22)
[2016-08-31] MEDS: niMODipine 33.333 MG/ML UDL PO SCH ×5 (04:13→16:22)
[2016-08-31] MEDS: HEPARIN 5,000 UNIT/0.5 ML SYR SC SCH ×2 (07:07→14:41)
[2016-08-31] MEDS: VANCOMYCIN HCL/NORMAL SALINE 250 ML IV SCH ×2 (07:34→19:51)
--- NOTE | 2016-08-31 08:35 | NEUSURGPN ---
Date of Surgery: 08/19/16 Post Op Day: 12 Assessment/Plan: Assessment: 89y/o female with AMS and likely ruptured AComm that is s/p ACOMM coiling exam appears improved today, but pt refuses oral intake and meds. Plan: -Continue Nimotop, will discuss with Susy alternate meds if refusing PO -SBP goal as ordered -CT brain no contrast this am r/t increased agitation/confusion s/p EVD removal yesterday, bilateral ventriculomegaly is similar to prior studies -low dose Precedex OK to help with agitation, discussed with Dr Jain -Patient continues to have poor calorie intake, refusing oral intake -Palliative care consult yesterday, continue full care at this time. -Continue antibiotics per ID -Continue IVF at 100/hr -Q2hour neuro checks during day -Only wake up once at night -Please notify NS with any change in neuro/motor exam Subjective: COmplaint of mild headache. Pt is "Happy" "wonderful". Son Mateo at bedside Objective: Objective: Alert, not oriented, unable to say name, appears to have expressive aphasia, follows some commands PEARLA, EOMI, no facial droop. MAEx4 +LT incision cdi, isma in place Catheter Insertion Date: 08/30/16 - Physician Discussed Patient with : Susy Neurosurgery Physical Exam - Vitals, I&O, Labs I and O 08/30/16 08/31/16 09/01/16 05:59 05:59 05:59 Intake Total 2308 2431.2 Output Total 2750 2100 Balance -442 331.2 Weight 58.2 kg 58.2 kg Intake: IV Infused (ml) 2308 2431.2 Dexmedetomidine HCl 400 53.2 mcg In Ns 100 ml @ Per Protocol IV CONT ARTEMIO Rx#: [id number] Ns 1,000 ml @ 100 mls/hr 1346 IV CONT ARTEMIO Rx#: [id number] POTASSIUM Cl (KCl) 40 meq 962 2378 In D5w Ns 1,000 ml @ 100 mls/hr IV CONT ARTEMIO Rx#: [id number] Output: Urine (ml) 2750 2100 Bedside Commode 800 150 Catheter 1950 1950 Other: Number of Voids Incontinence 1 Toilet 3 Number of Stools Toilet 1 Microbiology 08/28/16 12:30 Gram Stain - Final Cerebral Spinal Fluid Vital Signs Temp Pulse Resp BP Pulse Ox 36.9 C 59 L 16 151/59 H 96 08/30/16 18:08 08/31/16 06:00 08/31/16 06:00 08/31/16 06:00 08/31/16 06:00 Laboratory Results 08/31/16 06:20 ICD10 Worksheet Patient Problems: Problems Problem Status Onset Constipation Acute Palliative care encounter Acute Vomiting Acute
[2016-08-31] MEDS: MULTIVITAMINS 1 EACH TAB PO SCH (08:47)
[2016-08-31] MEDS: CALCIUM CARBONATE 500 MG TAB PO SCH (08:47)
[2016-08-31] MEDS: CEFEPIME HCL 2 GM in D5W 100 ML IV SCH ×2 (09:49→20:45)
[2016-08-31] MEDS: FAMOTIDINE 20 MG/NACL 50 ML IV SCH (09:49)
[2016-08-31 10:17] LABS: ANION GAP 9 mEq/L (8-16); CARBON DIOXIDE 18 mEq/l (22-31); CHLORIDE 118 mEq/L (97-110); CREATININE 0.6 mg/dL (0.6-1.0); GLUCOSE 142 mg/dL (70-100); POTASSIUM 4.2 mEq/L (3.5-5.2); SODIUM 145 mEq/L (134-144)
[2016-08-31 10:18] LABS: CALCIUM 8.6 mg/dL (8.5-10.4); GLOMERULAR FILTRATION RATE > 60
[2016-08-31] MEDS: ACETAMINOPHEN 650 MG SUPP PR PRN (11:29)
--- NOTE | 2016-08-31 15:37 | HOSPPROG ---
Hospitalist Progress Note Assessment/Plan: assessment: 89-year-old female presents with acute encephalopathy in the setting of ruptured anterior communicating artery Plan: #Acute encephalopathy: improving today w/ increased level of visual attentiveness (while up to chair) but continues to have expressive aphasia, what appear to be processing challenges, poor recognition - evidenced by global brain dysfunction w/ confusion, disorientation, somnolence , all of which are an acute change from baseline, 2/2 either infected ventric- catheter vs. structural from arterial rupture - waxing/waning, resulting in poor oral intake - patient consistently refusing NG tube - potentially worsening this AM from poor sleep + pneumocephalus on HCT - improving sleep/wake cycle, will consider transfer to 3N tomorrow to reduce stim - patient's prognosis is poor, but counseled family on rounds today that we can continue pursuing supportive care and monitor for signs of further decline vs. 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, repeat CT with persistent hydrocephalus and now w/ pneumocephalus s/p EVD removal - HOB elevated, o2 #Indeterminate troponin - no WMA on TTE #Atelectasis: resulting in hypoxia and supplemental oxygen, has been weaned, cont IS #Diet: regular w/ supplements if tolerates #DVT ppx: hep SC #Code: Full at present #Dispo: ADD uncertain, if improving will go to SNF Subjective: counseled family extensively regarding clinical signs of improvement versus decline, considerations for palliative versus supportive care Objective: Vital Signs Temp Pulse Resp BP Pulse Ox 36.9 C 59 L 16 151/59 H 96 08/30/16 18:08 08/31/16 06:00 08/31/16 06:00 08/31/16 06:00 08/31/16 06:00 Microbiology 08/28/16 12:30 Gram Stain - Final Cerebral Spinal Fluid Laboratory Results 08/31/16 06:20 08/31/16 06:20 08/30/16 08/31/16 09/01/16 05:59 05:59 05:59 Intake Total 2308 2431.2 Output Total 2750 2100 800 Balance -442 331.2 -800 PT 13.7 SEC (12.0-15.0) 08/19/16 05:12 INR 1.06 (0.83-1.16) 08/19/16 05:12 - Time Spent With Patient Time Spent with Patient: greater than 35 minutes Time Spent with Patient: Greater than 35 minutes spent on this patients care, greater than 50% of time spent counseling, educating, and coordinating care regarding the above mentioned plan. - Physical Exam Constitutional: not in pain, No no apparent distress ( mild distress when unable to verbalize responses to questions), No uncomfortable Cardiovascular: regular rate and rhythym, no murmur, rub, or gallop Respiratory: no respiratory distress, no rales or rhonchi, clear to auscultation Gastrointestinal: normoactive bowel sounds, soft, non-tender abdomen, no palpable masses Neurologic: other ( alert awake oriented x1 only) Psychiatric: not anxious, encephalopathic, other ( expressive aphasia, recognition is 1/3, easily distressed), No agitated ICD10 Worksheet Patient Problems: Problems Problem Status Onset Vomiting Acute Constipation Acute Palliative care encounter Acute
[2016-08-31] MEDS ORDERED: D5W 1/2 NS 1,000 ML IV SCH (15:45)
--- NOTE | 2016-08-31 16:19 | PDINTPN ---
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 Remains stable. Ventriculostomy removed, now with pneumocephalus. PT/OT, pulmonary toilet. Remains on Nimotop; [place] better. On Vanco * Possible infection of Ventricular drain: Culture negative * Constipation- resolved * Hypoxia- Improved * Nutrition: Getting only a fraction of her daily nutritional needs for the past 13 days. She refuses TF. Per palliative consult, family feels that she should be supported for about about 2 weeks total, then they would not want aggressive nutritional support such as a feeding tube. I don't think that TPN for a few days would be that beneficial, and a PICC would have to be placed, so will hold off on TPN and encourage PO. * Prophylaxis: On famotidine * Pyuria: Culture unremarkable. * Delerium: Slept better, room was quite and was on Precedex, more alert today but non-verbal. Plan: Continue calorie count. If her PO doesn't improve and she continues to refuse feeding tube, she probably won't survive. Continue H2 cleopatra, Cefepime, Vanco. Increase activity as tolerated, increase daytime light exposure, and minimize light/noise/interruptions at night. Avoid benzos. Continue intermittent oxygen today to help with pneumocephalus. 08/31/16 16:18 Subjective: More alert, but minimal speech and not following commands. Not taking PO. Objective: Vital Signs Temp Pulse Resp BP Pulse Ox 36.9 C 59 L 16 151/59 H 96 08/30/16 18:08 08/31/16 06:00 08/31/16 06:00 08/31/16 06:00 08/31/16 06:00 Microbiology 08/28/16 12:30 Gram Stain - Final Cerebral Spinal Fluid Laboratory Results 08/31/16 06:20 08/31/16 06:20 08/30/16 08/31/16 09/01/16 05:59 05:59 05:59 Intake Total 2308 2431.2 Output Total 2750 2100 800 Balance -442 331.2 -800 PT 13.7 SEC (12.0-15.0) 08/19/16 05:12 INR 1.06 (0.83-1.16) 08/19/16 05:12 Physical Exam - Physical Exam General Appearance: alert, no apparent distress EENT: normal ENT inspection Neck: normal inspection Respiratory: lungs clear, normal breath sounds Cardiac/Chest: regular rate, rhythm, No edema Abdomen: normal bowel sounds, non-tender, soft Skin: normal color, warm/dry Extremities: normal inspection Neuro/Psych: alert, speech abnormalities, No oriented x 3 ICD10 Worksheet Patient Problems: Problems Problem Status Onset Constipation Acute Palliative care encounter Acute Vomiting Acute
--- NOTE | 2016-08-31 17:00 | PCMIDPN ---
Assessment/Plan: Assessment: Fever-unclear etiology. isolated fever that was not repeated. Patient is status post intracranial hemorrhage with ventriculostomy drainage. Her blood cultures remain negative. She had her ventriculostomy removed yesterday. Continuing vancomycin and cefepime for now by today magallon 2 weeks from her intracranial hemorrhage event. She remains minimally interactive and non participating in therapy. This is a poor prognostic sign. Plan: 1. Continue both vancomycin and cefepime. 2. Follow fever curve and clinical course. 08/31/16 16:58 Subjective: patient is sitting up in a chair. She is not significantly responsive to voice. Does not verbalize well. No further fevers. Objective: Vancomycin #4 Cefepime #4 Vital Signs Temp Pulse Resp BP Pulse Ox 36.9 C 59 L 16 151/59 H 96 08/30/16 18:08 08/31/16 06:00 08/31/16 06:00 08/31/16 06:00 08/31/16 06:00 Microbiology 08/28/16 12:30 Gram Stain - Final Cerebral Spinal Fluid Laboratory Results 08/31/16 06:20 08/31/16 06:20 08/30/16 08/31/16 09/01/16 05:59 05:59 05:59 Intake Total 2308 2431.2 Output Total 2750 2100 800 Balance -442 331.2 -800 - Physical Exam General Appearance: WD/WN, no apparent distress, non-toxic, No alert Respiratory: lungs clear, normal breath sounds, No respiratory distress Cardiac/Chest: regular rate, rhythm, No tachycardia Skin: normal color, warm/dry, No rash Neuro/Psych: No alert ICD10 Worksheet Patient Problems: Problems Problem Status Onset Constipation Acute Palliative care encounter Acute Vomiting Acute
[2016-08-31] MEDS: DEXMEDETOMIDINE HCL 400 MCG in NS 100 ML IV SCH (21:42)
[2016-09-01] MEDS: HEPARIN 5,000 UNIT/0.5 ML SYR SC SCH ×4 (00:59→20:27)
[2016-09-01] MEDS: MELATONIN 3 MG TAB PO SCH ×2 (00:59→20:26)
[2016-09-01] MEDS: CALCIUM CARBONATE 500 MG TAB PO SCH ×3 (00:59→20:26)
[2016-09-01] MEDS: POLYETHYLENE GLYCOL 3350 17 GM PKT PO SCH ×2 (00:59→20:26)
[2016-09-01] MEDS: niMODipine 33.333 MG/ML UDL PO SCH ×4 (01:00→11:47)
[2016-09-01 05:00] LABS: % IMMATURE GRANULYOCYTES 1.7 % (0.0-1.1); ABSOLUTE IMMATURE GRANULOCYTES 0.16 10^3/uL (0.00-0.10); ADD DIFF? NO; ADD MORPH? NO; ADD SCAN? NO; ATYPICAL LYMPHOCYTE FLAG 20 (0-99); FRAGMENT RBC FLAG 0 (0-99); HEMATOCRIT 36.4 % (38.0-47.0); HEMOGLOBIN 11.9 g/dL (12.6-16.3); LEFT SHIFT FLG 10 (0-99); LIPEMIA HEMOLYSIS FLAG 80 (0-99); MEAN CELL HEMOGLOBIN 31.1 pg (27.9-34.1); MEAN CELL HEMOGLOBIN CONCENTR. 32.7 g/dL (32.4-36.7); MEAN PLATELET VOLUME 9.6 fL (8.7-11.7); PLATELET CLUMPS FLAG 0 (0-99); PLATELET COUNT 284 10^3/uL (150-400); RED BLOOD CELL COUNT 3.83 10^6/uL (4.18-5.33); RED CELL DISTRIBUTION WIDTH 13.8 % (11.5-15.2)
[2016-09-01 05:23] LABS: ANION GAP 9 mEq/L (8-16); CALCIUM 8.8 mg/dL (8.5-10.4); CARBON DIOXIDE 21 mEq/l (22-31); CHLORIDE 115 mEq/L (97-110); CREATININE 0.6 mg/dL (0.6-1.0); GLOMERULAR FILTRATION RATE > 60; GLUCOSE 135 mg/dL (70-100); SODIUM 145 mEq/L (134-144)
--- NOTE | 2016-09-01 06:04 | NEUSURGPN ---
Date of Surgery: 08/18/16 Post Op Day: 14 Assessment/Plan: Assessment: 89y/o female with AMS and likely ruptured AComm that is s/p ACOMM coiling exam stable, but pt refuses oral intake and meds. Plan: -Stop nimotop as not taking PO. -some htn, will speak to Dr. Jain about new parameter recs. -CT brain , bilateral ventriculomegaly is similar to prior studies -low dose Precedex OK to help with agitation, discussed with Dr Jain -Patient continues to have poor calorie intake, refusing oral intake -Palliative care consult yesterday, continue full care at this time. -Continue antibiotics per ID -Continue IVF at 100/hr -Q2hour neuro checks during day -Only wake up once at night -Please notify NS with any change in neuro/motor exam Subjective: Family in room, mildy sedated, still refusing PO Objective: Objective: Alert, not oriented, unable to say name, clear but minimal speech.t. follows some commands PEARLA, EOMI, no facial droop. MAEx4 +LT incision cdi, isma in place Catheter Insertion Date: 08/30/16 - Physician Discussed Patient with : Susy Neurosurgery Physical Exam - Vitals, I&O, Labs I and O 08/31/16 09/01/16 09/02/16 05:59 05:59 05:59 Intake Total 2431.2 2054 Output Total 2100 2250 Balance 331.2 -196 Weight 58.2 kg Intake: Oral (ml) 0 IV Infused (ml) 2431.2 2054 D5w 1/2 Ns 1,000 ml @ 100 1200 mls/hr IV CONT ARTEMIO Rx#: [id number] Dexmedetomidine HCl 400 53.2 mcg In Ns 100 ml @ Per Protocol IV CONT ARTEMIO Rx#: [id number] Famotidine 20 mg/NaCl 50 50 ml @ 200 mls/hr IV DAILY ARTEMIO Rx#:[id number] POTASSIUM Cl (KCl) 40 meq 2378 554 In D5w Ns 1,000 ml @ 100 mls/hr IV CONT ARTEMIO Rx#: [id number] Vancomycin HCl/Normal 250 Saline 250 ml @ 250 mls/ hr IV Q12H ARTEMIO Rx#: [id number] Output: Urine (ml) 2100 2250 Bedside Commode 150 900 Catheter 1950 1350 Other: Intake Quantity No Sufficient Number of Stools Bedside Commode 0 Microbiology 08/26/16 18:35 Blood Culture - Final Blood 08/26/16 17:15 Blood Culture - Final Blood 08/28/16 12:30 Gram Stain - Final Cerebral Spinal Fluid Vital Signs Temp Pulse Resp BP Pulse Ox 36.9 C 52 L 18 151/59 H 96 08/30/16 18:08 09/01/16 00:00 09/01/16 00:00 08/31/16 06:00 09/01/16 00:00 Laboratory Results 09/01/16 04:51 09/01/16 04:51 ICD10 Worksheet Patient Problems: Problems Problem Status Onset Constipation Acute Palliative care encounter Acute Vomiting Acute
[2016-09-01] MEDS: VANCOMYCIN HCL/NORMAL SALINE 250 ML IV SCH (08:52)
[2016-09-01] MEDS: MULTIVITAMINS 1 EACH TAB PO SCH (09:23)
--- NOTE | 2016-09-01 09:49 | PCMIDPN ---
Assessment/Plan: Assessment: Fever-unclear etiology. isolated fever that was not repeated. Patient is status post intracranial hemorrhage with ventriculostomy drainage. Her blood cultures remain negative. Given that her ventriculostomy is out for over 48 hours we will discontinue the vancomycin and cefepime. No signs of infection at present. She remains with some interactive difficulties and inability to swallow food or water. Although she is slightly more alert and participating today, I am worried that she does not have a significant recovery potential. Plan: 1. Discontinue both vancomycin and cefepime. 2. Infectious Disease will sign off at this point. Please call again with any further questions. 08/31/16 16:58 09/01/16 15:10 Subjective: Patient is seated in a chair in her hospital room. Her family is present. She is verbal with short one-word responses. However she is unable to successfully word find for simple responses such as her name. Objective: Vancomycin # 5 Cefepime # 5 Vital Signs Temp Pulse Resp BP Pulse Ox 36.5 C 47 L 18 163/59 H 97 09/01/16 07:55 09/01/16 07:55 09/01/16 00:00 09/01/16 07:55 09/01/16 07:55 Microbiology 08/26/16 18:35 Blood Culture - Final Blood 08/26/16 17:15 Blood Culture - Final Blood 08/28/16 12:30 Gram Stain - Final Cerebral Spinal Fluid Laboratory Results 09/01/16 04:51 09/01/16 04:51 08/31/16 09/01/16 09/02/16 05:59 05:59 05:59 Intake Total 2431.2 2054 Output Total 2100 2250 Balance 331.2 -196 - Physical Exam General Appearance: WD/WN, alert, no apparent distress, non-toxic Respiratory: lungs clear, No respiratory distress Cardiac/Chest: regular rate, rhythm, No tachycardia Skin: normal color, warm/dry, No rash Neuro/Psych: alert, normal mood/affect, oriented x 3 ICD10 Worksheet Patient Problems: Problems Problem Status Onset Constipation Acute Palliative care encounter Acute Vomiting Acute
[2016-09-01] MEDS: CEFEPIME HCL 2 GM in D5W 100 ML IV SCH ×2 (09:59→10:27)
[2016-09-01] MEDS: FAMOTIDINE 20 MG/NACL 50 ML IV SCH (10:01)
[2016-09-01] MEDS: D5W 1/4 NS W/ 20 KCl/L 1,000 ML IV SCH ×2 (12:37→23:19)
--- NOTE | 2016-09-01 13:46 | PDINTPN ---
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 Remains stable. Ventriculostomy removed, had pneumocephalus after removal. PT/OT, pulmonary toilet. Remains on Nimotop, although she's not taking it because she's refusing PO; [place] better. * Possible infection of Ventricular drain: Culture negative. On Vanco/Cefepime * Constipation- resolved * Hypoxia- Improved * Nutrition: Getting only a fraction of her daily nutritional needs for the past 14 days, and this has fallen off in the last 48 hours. She refuses TF. Per palliative consult, family feels that she should be supported for about about 2 weeks total, then they would not want aggressive nutritional support such as a feeding tube. I don't think that TPN for a few days would be that beneficial, and a PICC would have to be placed, so will hold off on TPN and encourage PO. * Prophylaxis: On famotidine * Pyuria: Culture unremarkable. * Delerium: Slept better, room was quite and was on Precedex, more alert last two days but is essentially non-verbal and is not participating in therapy. Plan: Continue calorie count. If her PO doesn't improve and she continues to refuse feeding tube, she probably won't survive. Continue H2 cleopatra, Cefepime, Vanco. Increase activity as tolerated, increase daytime light exposure, and minimize light/noise/interruptions at night. Avoid benzos. Will D/C Precedex. Probably transfer to floor tomorrow. 09/01/16 13:43 Subjective: More alert, but only answered one of several questions. Objective: Vital Signs Temp Pulse Resp BP Pulse Ox 36.7 C 62 18 151/76 H 97 09/01/16 12:14 09/01/16 12:14 09/01/16 00:00 09/01/16 12:14 09/01/16 12:14 Microbiology 08/26/16 18:35 Blood Culture - Final Blood 08/26/16 17:15 Blood Culture - Final Blood 08/28/16 12:30 Gram Stain - Final Cerebral Spinal Fluid Laboratory Results 09/01/16 04:51 09/01/16 04:51 08/31/16 09/01/16 09/02/16 05:59 05:59 05:59 Intake Total 2431.2 2053 Output Total 2099 2250 Balance 331.2 -196 PT 13.7 SEC (12.0-15.0) 08/19/16 05:12 INR 1.06 (0.83-1.16) 08/19/16 05:12 Physical Exam - Physical Exam General Appearance: alert, no apparent distress EENT: normal ENT inspection Neck: normal inspection Respiratory: lungs clear, No normal breath sounds Cardiac/Chest: regular rate, rhythm, No edema Abdomen: normal bowel sounds, non-tender, soft Skin: normal color, warm/dry Extremities: normal inspection Neuro/Psych: alert, normal mood/affect, oriented x 3 ICD10 Worksheet Patient Problems: Problems Problem Status Onset Constipation Acute Palliative care encounter Acute Vomiting Acute
--- NOTE | 2016-09-01 15:48 | HOSPPROG ---
Hospitalist Progress Note Assessment/Plan: assessment: 89-year-old female presents with acute encephalopathy in the setting of ruptured anterior communicating artery Plan: #Acute encephalopathy: unchanged today w/ visual attentiveness (while up to chair) but continues to have receptive and expressive aphasia (what appears to be processing challenges, poor recognition) - evidenced by global brain dysfunction w/ confusion, disorientation, somnolence , all of which are an acute change from baseline, 2/2 either infected ventric- catheter vs. structural from arterial rupture - waxing/waning, resulting in poor oral intake, no appetite - improving sleep/wake cycle, stopped HS precedex - patient's prognosis is poor, but counseled family on rounds today that we can continue pursuing supportive care and monitor for signs of further decline vs. 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, repeat CT with persistent hydrocephalus and now w/ pneumocephalus s/p EVD removal - HOB elevated, o2 #Indeterminate troponin - no WMA on TTE #Atelectasis: resulting in hypoxia and supplemental oxygen, has been weaned, cont IS #Severe protein calorie malnutrition: evidenced by > 14 days of inadequate PO caloric intake, losing weight, showing no signs of appetite or intake - ongoing dietary monitoring - monitor K/Mg/Phos, repeat albumin tomorrow - patient declining NGT, declining to eat - this may end up becoming terminal malnutrition - supported by ongoing IV hydration #Diet: regular w/ supplements if tolerates #DVT ppx: hep SC #Code: Full at present #Dispo: ADD uncertain, if improving will go to SNF Subjective: counseled family on rounds at in room that patient showing neither signs of improvement or decline Objective: Vital Signs Temp Pulse Resp BP Pulse Ox 36.7 C 62 18 151/76 H 97 09/01/16 12:14 09/01/16 12:14 09/01/16 00:00 09/01/16 12:14 09/01/16 12:14 Microbiology 08/28/16 12:30 Gram Stain - Final Cerebral Spinal Fluid 08/26/16 18:35 Blood Culture - Final Blood 08/26/16 17:15 Blood Culture - Final Blood Laboratory Results 09/01/16 04:51 09/01/16 04:51 08/31/16 09/01/16 09/02/16 05:59 05:59 05:59 Intake Total 2431.2 2054 Output Total 2100 2250 Balance 331.2 -196 PT 13.7 SEC (12.0-15.0) 08/19/16 05:12 INR 1.06 (0.83-1.16) 08/19/16 05:12 - Time Spent With Patient Time Spent with Patient: greater than 35 minutes Time Spent with Patient: Greater than 35 minutes spent on this patients care, greater than 50% of time spent counseling, educating, and coordinating care regarding the above mentioned plan. - Physical Exam Constitutional: no apparent distress, not in pain, No uncomfortable Cardiovascular: regular rate and rhythym, no murmur, rub, or gallop Respiratory: no respiratory distress, no rales or rhonchi, clear to auscultation Gastrointestinal: No normoactive bowel sounds (hypoactive) Neurologic: other (exp and receptive aphasia, unable to follow some 1-step commands, thought-blocking, eyes open to voice) ICD10 Worksheet Patient Problems: Problems Problem Status Onset Vomiting Acute Constipation Acute Palliative care encounter Acute
[2016-09-02 05:51] LABS: ALBUMIN 2.8 g/dL (3.5-5.0); ANION GAP 6 mEq/L (8-16); CALCIUM 8.1 mg/dL (8.5-10.4); CARBON DIOXIDE 22 mEq/l (22-31); CHLORIDE 109 mEq/L (97-110); CREATININE 0.5 mg/dL (0.6-1.0); GLOMERULAR FILTRATION RATE > 60; GLUCOSE 214 mg/dL (70-100); MAGNESIUM 1.8 mg/dL (1.6-2.3); POTASSIUM 3.6 mEq/L (3.5-5.2); SODIUM 137 mEq/L (134-144)
[2016-09-02 06:13] LABS: % IMMATURE GRANULYOCYTES 1.7 % (0.0-1.1); ABSOLUTE IMMATURE GRANULOCYTES 0.16 10^3/uL (0.00-0.10); ADD DIFF? NO; ADD MORPH? NO; ADD SCAN? NO; ATYPICAL LYMPHOCYTE FLAG 50 (0-99); FRAGMENT RBC FLAG 0 (0-99); LEFT SHIFT FLG 10 (0-99); LIPEMIA HEMOLYSIS FLAG 80 (0-99); MEAN CELL HEMOGLOBIN 31.2 pg (27.9-34.1); MEAN CELL HEMOGLOBIN CONCENTR. 33.3 g/dL (32.4-36.7); MEAN CELL VOLUME 93.5 fL (81.5-99.8); MEAN PLATELET VOLUME 9.8 fL (8.7-11.7); PLATELET CLUMPS FLAG 0 (0-99); PLATELET COUNT 277 10^3/uL (150-400); RED BLOOD CELL COUNT 3.85 10^6/uL (4.18-5.33); RED CELL DISTRIBUTION WIDTH 13.3 % (11.5-15.2)
[2016-09-02] MEDS: HEPARIN 5,000 UNIT/0.5 ML SYR SC SCH ×2 (06:27→15:01)
[2016-09-02] MEDS ORDERED: PROTOCOL POTASSIUM 1 DOSE MISC PRN (07:15)
--- NOTE | 2016-09-02 08:49 | SOAPPROG ---
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 Plan: stable overall limited PO intake yesterday, ST to evaluate today, family still concerned about assisted recovery PT/OT/ST head CT 08/30 stable in regards to ventriculomegaly fevers resolved, off abx, no evidence of acute infectious process palliate care met with family but continue with aggressive care for now please call with neuro changes discussed with Dr Jain 09/02/16 08:47 09/02/16 09:33 09/02/16 09:53 Subjective: chart reviewed, no headaches, no N/v. Objective: Vital Signs Temp Pulse Resp BP Pulse Ox 36.1 C 58 L 18 167/66 H 98 09/02/16 08:00 09/02/16 08:00 09/02/16 08:00 09/02/16 08:00 09/02/16 08:00 Microbiology 08/28/16 12:30 Gram Stain - Final Cerebral Spinal Fluid Laboratory Results 09/02/16 06:00 09/02/16 05:20 09/01/16 09/02/16 09/03/16 05:59 05:59 05:59 Intake Total 2054 3631 Output Total 2250 2250 Balance -196 1381 PT 13.7 SEC (12.0-15.0) 08/19/16 05:12 INR 1.06 (0.83-1.16) 08/19/16 05:12 awake, confused to month/year PERRL, no facial droop LEIDA x 4 + light touch C/D/I at EVD site ICD10 Worksheet Patient Problems: Problems Problem Status Onset Constipation Acute Palliative care encounter Acute Vomiting Acute
[2016-09-02] MEDS: FAMOTIDINE 20 MG/NACL 50 ML IV SCH (09:39)
[2016-09-02] MEDS: MULTIVITAMINS 1 EACH TAB PO SCH (09:39)
[2016-09-02] MEDS: CALCIUM CARBONATE 500 MG TAB PO SCH ×2 (09:39→20:32)
--- NOTE | 2016-09-02 14:40 | PDPCPN ---
Palliative Care Progress Note Assessment/Plan: HPI: Subha Fatima is a 89 yo female with no significant PMH admitted to the hospital with abdominal pain, nausea/vomiting and headache. Found to have severe constipation. 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 S/p evacuation with intital improvement in status but hospitalization complicated by acute confusion, fevers , and poor appetite. Passed swallow eval but with continue poor appetite and unable to place NG tube due to pt discomfort. EV drain removed with some minimal improvement in confusion over the weekend but still acutely encephalopathic with poor appetite and expressive and receptive aphasia. Palliative care consulted for complex medical decision making. Met with Babar, 2 daughters, and SAVANAH outside of the room. The family spoke of many conversations they have had about end of life directives. They have direct experience with a family member being in a dependent state for the past 20 years who has had a PEG tube. They feel Subha would want a chance to recover from her current state. They agree at current she would not value her quality of life but if she were able to feed herself and have meaningful interactions, then she would want life prolongation. We talked about options including PEG tube for nutritional support with rehab vs comfort care only. The family feels a PEG tube is what Subha would want at this time. We discussed prognosis with an unknown time frame or how much she will recover. They would like to know exactly how long they can expect Subha to improve before reaching a plateau. We discussed time frame is likely months of recover before we will know exactly where her new baseline will be. They would also like to speak with neurosurgery again about this topic before discharge. Assessment: Physical: - Pain: headache- improved with drain removal - tylenol PRN - poor appetite - encourage general diet - might consider adding medications if appetite is poor but avoid for now as can complicate cognition - speech following - PEG tube for nutritional support during rehab - constipation - dulcolax supp daily PRN Emotional/psychological: acute confusion: continue normal routines with normal sleep/wake cycles - try to limit medical interruptions at night Advanced Care Planning: Is patient decisional?: no Code Status: DNR POA: Babar is MDPOA. Plan: Family feels Subha would want a chance to recover with support of PEG tube. Discharge planning per case management inpt rehab vs SNF rehab. They are hoping for more cognitive improvement. Subjective: ok Objective: Vital Signs Temp Pulse Resp BP Pulse Ox 36.5 C 58 L 18 127/84 H 96 09/02/16 12:00 09/02/16 08:00 09/02/16 12:00 09/02/16 12:00 09/02/16 12:00 Microbiology 08/28/16 12:30 Gram Stain - Final Cerebral Spinal Fluid Laboratory Results 09/02/16 06:00 09/02/16 05:20 09/01/16 09/02/16 09/03/16 05:59 05:59 05:59 Intake Total 2053 3631 Output Total 2250 2250 Balance -196 1381 PT 13.7 SEC (12.0-15.0) 08/19/16 05:12 INR 1.06 (0.83-1.16) 08/19/16 05:12 Physical Exam - Physical Exam General Appearance: alert, no apparent distress Respiratory: No respiratory distress, No accessory muscle use Skin: normal color, warm/dry Extremities: No pedal edema Neuro/Psych: alert, other (aphasia) ICD10 Worksheet Patient Problems: Problems Problem Status Onset Constipation Acute Palliative care encounter Acute Vomiting Acute - ICD10 Problem Qualifiers (1) Palliative care encounter
--- NOTE | 2016-09-02 16:18 | HOSPPROG ---
Hospitalist Progress Note Assessment/Plan: coordinated care with palliative executive talent acquisition consultant Cristal Dash and high risk case manager,, recommending that the family choose to pursue either aggressive supportive measures which will require PEG tube placement and shelter facility rehab and reassess patient's status after 1-2 months versus pursue home hospice and discontinue supportive IV fluids and pursue strictly comfort care. Palliative consultation yielded that the family would like to pursue aggressive supportive measures including PEG tube placement and shelter facility with rehab. I contacted Dr. Mcgovern from [facility] and we have arranged for a PEG tube placement tomorrow, holding heparin subcu making patient NPO after midnight. Met with the patient and her family and we discussed overall prognosis, they requested Neurology consultation to help better ascertain realistic time frame of when he should see neurologic recovery from her dense receptive and expressive aphasia. Overall, the patient is appearing physiologically better today than she was 5 days ago, with a more appropriate sleep-wake cycle, engaging with physical therapy and family during the daytime and ambulating with standby assist around the unit. She continues to have dense expressive and receptive aphasia and she is also lacking hunger and thirst. Today was the 1st day over the past several that she did not refuse attempts to give her liquids and she did eat approximately 200 calories of solid food. Given that the patient's IV is about to and there is low value in monitoring her electrolytes as aggressively as we have been, we will discontinue lab draws at this time, continue IV fluid support until PEG tube placement, then repeat labs on 09/04. Subjective: Counseled the patient's and son extensively regarding patient's neurologic prognosis comma proposed plan, treatment moving forward. Objective: Vital Signs Temp Pulse Resp BP Pulse Ox 36.5 C 58 L 18 127/84 H 96 09/02/16 12:00 09/02/16 08:00 09/02/16 12:00 09/02/16 12:00 09/02/16 12:00 Microbiology 08/28/16 12:30 Gram Stain - Final Cerebral Spinal Fluid Laboratory Results 09/02/16 06:00 09/02/16 05:20 09/01/16 09/02/16 09/03/16 05:59 05:59 05:59 Intake Total 2 3631 Output Total 2250 2250 Balance -196 1381 PT 13.7 SEC (12.0-15.0) 08/19/16 05:12 INR 1.06 (0.83-1.16) 08/19/16 05:12 - Time Spent With Patient Time Spent with Patient: greater than 35 minutes Time Spent with Patient: Greater than 35 minutes spent on this patients care, greater than 50% of time spent counseling, educating, and coordinating care regarding the above mentioned plan. - Physical Exam Constitutional: no apparent distress, not in pain, No uncomfortable Psychiatric: other (sleeping comfortably, remarkably talking in her sleep more fluently than she speaks while awake) ICD10 Worksheet Patient Problems: Problems Problem Status Onset Vomiting Acute Constipation Acute Palliative care encounter Acute
[2016-09-02] MEDS: POLYETHYLENE GLYCOL 3350 17 GM PKT PO SCH (20:32)
[2016-09-02] MEDS: MELATONIN 3 MG TAB PO SCH (20:32)
[2016-09-03] MEDS: D5W 1/2 NS W/ 40 KCl/L 1,000 ML IV SCH ×2 (00:26→15:57)
--- NOTE | 2016-09-03 08:52 | NEUSURGPN ---
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 Plan: stable overall- family notes cognitive improvement in last 2 days. Did eat something yesterday for first time in a week limited PO intake yesterday, ST to evaluate today, family still concerned about buttermaker recovery Palliative care met with family yesterday and would like to pursue aggressive measures including PEG tube and SNF placement to see how she recovers in next 1- 2 months PT/OT/ST head CT 08/30 stable in regards to ventriculomegaly fevers resolved, off abx, no evidence of acute infectious process please call with neuro changes discussed with Dr Jain and seen by Dr. Jain as well today Subjective: Chart reviewed. Patient denies headaches this morning. Slept well. Worked with therapies yesterday and had small amount of po intake yesterday. Per family, pursuing PEG tube and SNF at this time. Objective: awake, confused to month/year, knows her name/ PERRL, EOMI no facial droop LEIDA x 4 to command + light touch C/D/I at EVD site Catheter Insertion Date: 08/30/16 - Physician Discussed Patient with : Susy Patient Seen by : Susy Neurosurgery Physical Exam - Vitals, I&O, Labs I and O 09/02/16 09/03/16 09/04/16 05:59 05:59 05:59 Intake Total 3631 2415 Output Total 2250 1400 Balance 1381 1015 Weight 54 kg 54.3 kg Intake: Oral (ml) 120 60 IV Intake (ml) 1228 IV Infused (ml) 3511 1127 D5W 1/2 NS W/ 40 KCl/L 1, 1127 000 ml @ 100 mls/hr IV CONT ARTEMIO Rx#:[id number] D5w 1/2 Ns 1,000 ml @ 100 3483 mls/hr IV CONT ARTEMIO Rx#: [id number] Dexmedetomidine HCl 400 28 mcg In Ns 100 ml @ Per Protocol IV CONT ARTEMIO Rx#: [id number] Output: Urine (ml) 2250 1400 Bedside Commode 950 Catheter 1300 1400 Other: Intake Quantity No No Sufficient Number of Stools Catheter 1 Microbiology 08/28/16 12:30 Gram Stain - Final Cerebral Spinal Fluid Vital Signs Temp Pulse Resp BP Pulse Ox 37.0 C 82 18 157/78 H 93 06/27/17 08:00 09/03/16 08:00 09/03/16 08:00 09/03/16 08:00 09/03/16 08:00 Laboratory Results 09/02/16 06:00 09/02/16 05:20 ICD10 Worksheet Patient Problems: Problems Problem Status Onset Constipation Acute Palliative care encounter Acute Vomiting Acute
[2016-09-03] MEDS: FAMOTIDINE 20 MG/NACL 50 ML IV SCH (08:57)
[2016-09-03] MEDS ORDERED: FLUMAZENIL 0.5 MG/5 ML MDV IVP ONE (11:09)
[2016-09-03] MEDS ORDERED: fentaNYL 100 MCG/2 ML INJ ONE (11:10)
[2016-09-03] MEDS ORDERED: NALOXONE HCL 0.4 MG/ML INJ ONE (11:10)
[2016-09-03] MEDS ORDERED: MIDAZOLAM 2 MG/2 ML VIAL ONE (11:10)
[2016-09-03] MEDS ORDERED: LIDOCAINE 2% JELLY 20 ML (UROJECT) ONE ×2 (11:19→11:26)
[2016-09-03] MEDS ORDERED: IOPAMIDOL (ISOVUE-300) 100 ML BTL ONE (11:26)
[2016-09-03 11:27] LABS: INR 1.09 (0.83-1.16)
[2016-09-03 11:28] LABS: APTT 25.6 SEC (23.0-38.0)
[2016-09-03] MEDS ORDERED: LIDOCAINE 1% 300 MG/30 ML SDV ONE (11:30)
[2016-09-03] MEDS ORDERED: DEXMEDETOMIDINE HCL 200 MCG in NS 50 ML IV ONE (12:00)
[2016-09-03] MEDS: CALCIUM CARBONATE 500 MG TAB PO SCH ×2 (12:52→21:26)
[2016-09-03] MEDS: MULTIVITAMINS 1 EACH TAB PO SCH (12:52)
--- NOTE | 2016-09-03 13:01 | PDCONSULT ---
Business Integration Manager Note: HOSPITAL NEUROLOGY CONSULT REQUESTING: Ilia Guzman MD REASON: altered mental status HPI: This is an 89 year old previously healthy woman who presented to our facility on 08/18 with nausea, vomiting and some altered mental status. GI workup was unremarkable, but she was found to have a diffuse subarachnoid hemorrhage on CT head wo, with evidence of hydrocephalus and early downward herniation. She underwent emergent angiography which revealed a ruptured ACOMM aneurysm that was coiled. She also had EVD placement for hydrocephalus. Post coiling, she had markedly fluctuating mental status and confusion. She has had some improvement over her hospital course, namely in being more alert for more prolonged periods of time. However, she remains with reduced attention, inability to converse appropriately, inability to follow some commands, disorientation and perhaps some indication of fluent aphasia. I have been asked to specifically comment on her cognitive prognosis after her events. She has no known prior cognitive issues. No known cerebrovascular risk factors. ROS: As per the HPI, otherwise a complete 12 point ROS was performed and is negative ALLERGIES AND MEDS: As recorded in the EMR - reviewed and reconciled PFSH: As per the intake H&P by Dr. Epstein from 08/18/16 EXAM: VS reviewed in EMR GEN: thin elderly woman laying in NAD HEENT: right frontal EVD site healing, sclera anicteric, conjunctiva not injected, MMM, oropharynx clear, no scalp tenderness NECK: supple, nontender, no meningismus CV: RRR s1 s2 wo m/r/c/g. Carotid pulses 2+ wo bruit NEURO: MS: awake, reduced attention. Disoriented to all spheres except own name, unable to state her age. Speech nondysarthric. She has periods of fluent speech output without any goal directed or meaningful content. She is able to name and repeat to an extent. She doesn't have the attentional capacity to try reading or picture description. She cannot follow simple appendicular commands (she identifies the left and right upper extremities appropriately, but won't perform further tasks such as thumbs-up or showing 2 fingers). Attends to both sides. Cannot assess other higher cortical function due to her mental status. CN: pupils 3mm round and reactive. Blinks to threat OU. Primary gaze centered. Full ocular motility. Grimace to nox stim of the face. Face symmetric. Hearing grossly intact to finger rub. Palatoglossal movements intact. Shoulder shrug and head turn strong. MOTOR: reduced bulk throughout. Somewhat paratonic. No adventitial movements. Able to sustain antigravity in all limbs, but doesn't participate in segmental motor exam. SENSORY: localizes in BUEs, withdraws in BLEs COORD: no gross ataxia. REFLEX: plantars equivocal. No clonus. Absent DTRs due to activation. GAIT: ubale to safely assess DATA REVIEW: Labs, imaging and physiologic data reviewed in EMR IMPRESSION AND RECOMMENDATIONS: // ANEURYSMAL SAH // ALTERED MENTAL STATUS Patient with altered mental status, with reports of early fluctuation and reduced attention. Earlier stages may have been more of a delirium, multifactorial in origin. No she is left with reduced attention, fluent aphasia , disorientation. Difficult to say if this is purely delirium. My suspicion is she is going to be left with some degree of cognitive impairment, as is the case with most stroke situations. Her advanced age does put her at a disadvantage from a cognitive recovery standpoint. Discussed at length with family that most patient with poor grade SAH will experience some degree of cognitive disturbance. Further, discussed how these can show some degree of recovery with intensive rehab over 6 to 12 months, but I'm not certain she would be able to fully participate in an intensive cognitive rehab program. I cannot fully exclude a vasospasm or nonvasospasm related DCI event involving the left hemisphere, which may be resulting in her aphasia. Definitive diagnosis would rest on performing an MRI brain wo, which I don't think she would tolerate without sedation. If aggressive measures are pursued, and she is safe for sedation, the MRI brain wo may help family decide on how to proceed regarding aggressiveness of her care. Hospitalist and neurosurgery team to continue with medical care. Will sign off. Reconsult PRN. Today's visit was spent primarily in counseling and coordination of care. 60 mins in direct patient care activities on the floor.
--- NOTE | 2016-09-03 14:50 | POSTOPPROG ---
Post Op Note Date of Operation: 09/03/16 Surgeon: Elizabeth Mcgovern Anesthesia: IV Sedation (fentanyl, versed, precedex) Pre-op Diagnosis: brain injury, aspiration Post-op Diagnosis: same Indication: needs nutritional support Procedure: G-tube placement Inf/Abcess present in the surg proc area at time of surgery?: No Depth: Superfical (Skin SQ) EBL: Minimal Complications: None
--- NOTE | 2016-09-03 15:35 | HOSPPROG ---
Hospitalist Progress Note Assessment/Plan: Assessment/Plan: assessment: 89-year-old female presents with acute encephalopathy and resultant aphasia in the setting of ruptured anterior communicating artery Plan: #Acute encephalopathy: patient experienced acute decline s/p SAH, pain, sedation , and poor sleep/wake cycle, may have also had underlying impaired baseline from unrecognized dementia - her sleep/wake cycle has regulated - she is off pain Rx - her persistent aphasia is likely a residual from her SAH and her encephalopathy has stabilized now #Headache: resolved #Fever: no e/o sepsis, CSF studies w/ possible infxn, discontinued Abx per ID given neg Cx #Asymptomatic bacturia: UCx w/o convincing infxn #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: s/p coiling, repeat CT with persistent hydrocephalus and pneumocephalus s/p EVD removal - stabilized, appreciate ongoing NSGY evals - will need outpt f/u now that family has decided on temporary, aggressive measures - expressive/receptive aphasia will likely be ongoing deficits, as well as impaired hunger drive - counseled family that, since they have elected for aggressive measures, would rec 1-2months of therapy and ongoing outpt neuro/NSGY reassessments to gauge response - INPT REHAB will be her disposition, once tube feeds at goal - PEG being placed today, initiate TF under instruction of Dr. Mcgovern - once we can use PEG, then we can restart nimotop to reduce vasospasm - appreciate neuro consult today to help family prognosticate #Indeterminate troponin - no WMA on TTE #Atelectasis: resulting in hypoxia and supplemental oxygen, has been weaned, cont IS #Severe protein calorie malnutrition: evidenced by > 14 days of inadequate PO caloric intake, losing weight, showing no signs of appetite or intake - ongoing dietary monitoring - monitor K/Mg/Phos while initiating feeds - can adjust from IVF to TF w/ water boluses once able #Diet: TF, can swallow safely if she wants #DVT ppx: hep SC restart tomorrow #Code: DNR per family conference #Dispo: ADD next 24-48hrs to INPT REHAB Subjective: counseled the patient's family regarding overall prognosis, inpatient rehab, advancing diet with tube feeds Objective: Vital Signs Temp Pulse Resp BP Pulse Ox 36.7 C 53 L 16 146/70 H 97 09/03/16 13:47 09/03/16 14:00 09/03/16 14:00 09/03/16 14:10 09/03/16 14:10 Microbiology 08/28/16 12:30 Gram Stain - Final Cerebral Spinal Fluid Laboratory Results 09/02/16 06:00 09/02/16 05:20 09/02/16 09/03/16 09/04/16 05:59 05:59 05:59 Intake Total 3631 2415 Output Total 2250 1400 Balance 1381 1015 PT 14.0 SEC (12.0-15.0) 09/03/16 11:00 INR 1.09 (0.83-1.16) 09/03/16 11:00 - Time Spent With Patient Time Spent with Patient: greater than 35 minutes Time Spent with Patient: Greater than 35 minutes spent on this patients care, greater than 50% of time spent counseling, educating, and coordinating care regarding the above mentioned plan. - Physical Exam Constitutional: no apparent distress, not in pain, chronically ill appearing, No uncomfortable Neurologic: other ( alert awake oriented x1 only, expressive and receptive aphasia, follows command, she is studiously reviewing her cards during our exam) ICD10 Worksheet Patient Problems: Problems Problem Status Onset Constipation Acute Palliative care encounter Acute Vomiting Acute
[2016-09-03] MEDS: ACETAMINOPHEN 325 MG TAB PO PRN (18:12)
[2016-09-03] MEDS: POLYETHYLENE GLYCOL 3350 17 GM PKT PO SCH (21:26)
[2016-09-03] MEDS: MELATONIN 3 MG TAB PO SCH (21:26)
[2016-09-04 06:29] LABS: ABSOLUTE IMMATURE GRANULOCYTES 0.11 10^3/uL (0.00-0.10); ADD DIFF? NO; ADD MORPH? NO; ADD SCAN? NO; ATYPICAL LYMPHOCYTE FLAG 20 (0-99); FRAGMENT RBC FLAG 0 (0-99); HEMATOCRIT 36.8 % (38.0-47.0); HEMOGLOBIN 12.3 g/dL (12.6-16.3); LEFT SHIFT FLG 0 (0-99); LIPEMIA HEMOLYSIS FLAG 80 (0-99); MEAN CELL HEMOGLOBIN 31.3 pg (27.9-34.1); MEAN CELL HEMOGLOBIN CONCENTR. 33.4 g/dL (32.4-36.7); MEAN CELL VOLUME 93.6 fL (81.5-99.8); MEAN PLATELET VOLUME 9.9 fL (8.7-11.7); PLATELET CLUMPS FLAG 0 (0-99); PLATELET COUNT 255 10^3/uL (150-400); RED BLOOD CELL COUNT 3.93 10^6/uL (4.18-5.33); RED CELL DISTRIBUTION WIDTH 13.6 % (11.5-15.2)
[2016-09-04 06:35] LABS: ANION GAP 9 mEq/L (8-16); CALCIUM 9.2 mg/dL (8.5-10.4); CARBON DIOXIDE 20 mEq/l (22-31); CHLORIDE 110 mEq/L (97-110); CREATININE 0.6 mg/dL (0.6-1.0); GLOMERULAR FILTRATION RATE > 60; GLUCOSE 132 mg/dL (70-100); POTASSIUM 4.2 mEq/L (3.5-5.2); SODIUM 139 mEq/L (134-144)
[2016-09-04] MEDS: CALCIUM CARBONATE 500 MG TAB PO SCH ×3 (07:53→20:34)
--- NOTE | 2016-09-04 08:33 | SOAPPROG ---
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 Plan: stable overall limited PO intake, G-tube placed by IR PT/OT/ST head CT 08/30 stable in regards to ventriculomegaly fevers resolved, off abx, no evidence of acute infectious process palliate care met with family but continue with aggressive care for now dispo planning on SNF/rehab placement please call with neuro changes discussed with Dr Jain 09/02/16 08:47 09/02/16 09:33 09/02/16 09:53 09/04/16 08:30 Subjective: chart reviewed, patient denies headaches, N/V. Objective: Vital Signs Temp Pulse Resp BP Pulse Ox 34.5 C L 62 13 156/73 H 93 09/04/16 08:04 09/04/16 08:04 09/04/16 08:04 09/04/16 08:04 09/04/16 08:04 Microbiology 08/28/16 12:30 Gram Stain - Final Cerebral Spinal Fluid Laboratory Results 09/04/16 06:14 09/04/16 06:14 09/03/16 09/04/16 09/05/16 05:59 05:59 05:59 Intake Total 2415 1809 Output Total 1400 1950 Balance 1015 -141 PT 14.0 SEC (12.0-15.0) 09/03/16 11:00 INR 1.09 (0.83-1.16) 09/03/16 11:00 awake, continues dysphasia PERRL, no facial droop LEIDA x 4 + light touch ICD10 Worksheet Patient Problems: Problems Problem Status Onset Constipation Acute Palliative care encounter Acute Vomiting Acute
--- NOTE | 2016-09-04 08:40 | HOSPPROG ---
Hospitalist Progress Note Assessment/Plan: 89 yo female with acute encephalopathy and aphasia with SAH 2/2 ruptured anterior communicating artery. Admitted 08/19. Patient received PEG 09/03, TF to begin today. Patient is new to me today. 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: s/p coiling, repeat CT with persistent hydrocephalus and pneumocephalus s/p EVD removal - stabilized, appreciate ongoing NSGY evals - will need outpt f/u now that family has decided on temporary, aggressive measures - expressive/receptive aphasia will likely be ongoing deficits, as well as impaired hunger drive - counseled family that, since they have elected for aggressive measures, would rec 1-2months of therapy and ongoing outpt neuro/NSGY reassessments to gauge response - INPT REHAB will be her disposition, once tube feeds at goal - PEG being placed today, initiate TF under instruction of Dr. Mcgovern - once we can use PEG, then we can restart nimotop to reduce vasospasm - appreciate neuro consult today to help family prognosticate -Indeterminate troponin - no WMA on TTE -Atelectasis: resulting in hypoxia and supplemental oxygen, has been weaned, cont IS -Severe protein calorie malnutrition: evidenced by > 14 days of inadequate PO caloric intake, losing weight, showing no signs of appetite or intake - ongoing dietary monitoring - monitor K/Mg/Phos while initiating feeds - can adjust from IVF to TF w/ water boluses once able -Diet: TF, can swallow safely if she wants -DVT ppx: hep SC restart tomorrow -Code: DNR per family conference -Dispo: ADD next 24-48hrs to INPT REHAB Subjective: Patient is alert and seems to follow some commands but does not verbally respond appropriately. She is alert and per the family she is slightly improved from yesterday. Objective: Vital Signs Temp Pulse Resp BP Pulse Ox 34.5 C L 62 13 156/73 H 93 09/04/16 08:04 09/04/16 08:04 09/04/16 08:04 09/04/16 08:04 09/04/16 08:04 Microbiology 08/28/16 12:30 Gram Stain - Final Cerebral Spinal Fluid Laboratory Results 09/04/16 06:14 09/04/16 06:14 09/03/16 09/04/16 09/05/16 05:59 05:59 05:59 Intake Total 2415 1809 Output Total 1400 1950 Balance 1015 -141 PT 14.0 SEC (12.0-15.0) 09/03/16 11:00 INR 1.09 (0.83-1.16) 09/03/16 11:00 - Time Spent With Patient Time Spent with Patient: greater than 35 minutes Time Spent with Patient: Greater than 35 minutes spent on this patients care, greater than 50% of time spent counseling, educating, and coordinating care regarding the above mentioned plan. - Physical Exam Constitutional: no apparent distress Eyes: PERRL, anicteric sclera Ears, Nose, Mouth, Throat: moist mucous membranes, ears appear normal, no oral mucosal ulcers Cardiovascular: regular rate and rhythym, no murmur, rub, or gallop Respiratory: no respiratory distress, no rales or rhonchi Gastrointestinal: normoactive bowel sounds, soft, non-tender abdomen, no palpable masses Genitourinary: no bladder fullness Skin: warm Musculoskeletal: generalized weakness Neurologic: other ( Moves all 4 extremities but not on command. Orientation cannot be assessed.) ICD10 Worksheet Patient Problems: Problems Problem Status Onset Vomiting Acute Constipation Acute Palliative care encounter Acute
[2016-09-04] MEDS ORDERED: NS W/ 20 KCl/L 1,000 ML IV SCH (12:30)
[2016-09-04] MEDS: FAMOTIDINE 20 MG/NACL 50 ML IV SCH (15:30)
[2016-09-04] MEDS: MULTIVITAMINS 1 EACH TAB PO SCH (15:30)
[2016-09-04] MEDS: MELATONIN 3 MG TAB PO SCH (20:34)
[2016-09-04] MEDS: POLYETHYLENE GLYCOL 3350 17 GM PKT PO SCH (20:34)
[2016-09-05] MEDS: ACETAMINOPHEN 325 MG TAB PO PRN ×2 (06:04→15:15)
[2016-09-05 07:09] VITALS: RESP 22; TEMP 97.5; O2SAT 95
[2016-09-05 08:44] VITALS: BP 123/73; PULSE 70
[2016-09-05] MEDS: MULTIVITAMINS 1 EACH TAB PO SCH (08:45)
[2016-09-05] MEDS: FAMOTIDINE 20 MG/NACL 50 ML IV SCH (08:45)
[2016-09-05] MEDS: CALCIUM CARBONATE 500 MG TAB PO SCH (08:45)
--- NOTE | 2016-09-05 09:09 | NEUSURGPN ---
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 Plan: stable overall- somewhat agitated this morning since 6am. Got Tylenol for headache and RN adjusted catheter to see if this would help.Family states she has not been as cognitively clear since PEG placement PEG placed and started feeds yesterday afternoon Dispo- Hopeful for dispo to SNF later today PT/OT/ST please call with neuro changes discussed with Dr Jain Subjective: Chart reviewed. Patient more non-verbal this morning. Per family has been somewhat agitated since 6am this morning but slept well last night. Patient denies abdominal pain, but shakes head yes to mild headache. Objective: awake, confused this am and non-verbal mostly this morning PERRL, EOMI no facial droop LEIDA x 4 to command + light touch Abdomen- soft, non-tender C/D/I at EVD site Catheter Insertion Date: 08/30/16 - Physician Discussed Patient with : Susy Neurosurgery Physical Exam - Vitals, I&O, Labs I and O 09/04/16 09/05/16 09/06/16 05:59 05:59 05:59 Intake Total 1809 Output Total 1950 2550 Balance -141 -2550 Intake: IV Infused (ml) 1809 D5W 1/2 NS W/ 40 KCl/L 1, 1809 000 ml @ 100 mls/hr IV CONT ARTEMIO Rx#:[id number] Output: Urine (ml) 1950 2550 Catheter 1950 2550 Other: Intake Quantity No: NPO Sufficient Microbiology 08/28/16 12:30 Gram Stain - Final Cerebral Spinal Fluid CSF Culture - Final Vital Signs Temp Pulse Resp BP Pulse Ox 36.4 C 70 22 H 123/73 H 95 09/05/16 07:07 09/05/16 08:44 09/05/16 07:07 09/05/16 08:44 09/05/16 07:07 Laboratory Results 09/04/16 06:14 09/04/16 06:14 ICD10 Worksheet Patient Problems: Problems Problem Status Onset Constipation Acute Palliative care encounter Acute Vomiting Acute
--- NOTE | 2016-09-05 14:09 | PDIAF ---
- Diagnosis Code Status: Do Not Resuscitate - Medication Management Discharge Medications: Medications to Continue on Transfer Calcium Carbonate [Oyster Shell Calcium 500 mg (*)] 500 mg PO BID 08/18/16 [ Last Taken 08/17/16] Multivitamins [Multivitamin (*)] 1 each PO DAILY 08/18/16 [Last Taken 08/17/16] [place]-3 Fatty Acids [Fish Oil 1000 mg (*)] 1,000 mg PO DAILY 08/18/16 [Last Taken 08/17/16] Acetaminophen [Tylenol 325mg (*)] 650 mg PO Q4HRS PRN #0 tab 09/05/16 [Last Taken Unknown] Acetaminophen [Tylenol Rectal] 650 mg [place] Q4 PRN #0 supp 09/05/16 [Last Taken Unknown] Melatonin [Melatonin 3 MG (*)] 1.5 mg PO HS tab 09/05/16 [Last Taken Unknown] Ondansetron Odt [Zofran Odt 4 mg (*)] 4 mg PO Q4HRS PRN #0 tab 09/05/16 [Last Taken Unknown] Polyethylene Glycol 3350 [Miralax 17 gm (*)] 17 gm PO HS pkt 09/05/16 [Last Taken Unknown] Discharge Medications: Refer to the Discharge Home Medication list for PRN reason. - Orders Services needed: Registered Nurse, Certified Corn Cooker, Master [employer] Sawyer , Physical Therapy, Occupational Therapy, Speech Language Pathologist Diet Recommendation: no restrictions on diet Diet Texture: Regular Texture Diet, Thin Liquids, Non Oral Meds Tube feeding: yes. See discharge summary for details Weigh Patient: weekly Barajas: Yes - Labs/Radiology CBC Date: 09/11/16 CMP Date: 09/11/16 - Follow Up Care Current Providers and Referrals: Ray Luz DO [Primary Care Provider] - As per Instructions
--- NOTE | 2016-09-05 15:10 | GDS ---
[f rep st] DISCHARGE SUMMARY NEW AND ACUTE DIAGNOSES ON THIS ADMISSION: 1. 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 Patient had resulting hydrocephalus and pneumocephalus. 2. 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 3. Acute encephalopathy complicated with expressive and receptive aphasia. The encephalopathy has primarily resolved at the time of discharge. 4. Headache, mild and treated with Tylenol. 5. Fever without clear infectious source and afebrile off antibiotics; again, now resolved. 6. Asymptomatic bacteriuria. 7. Severe protein caloric malnutrition, on tube feedings. 8. DNR code status. CONSULTATION: Neurology, Neurosurgery, and Intensive Care Medicine. PROCEDURE: 1. Abdominal CT. 2. Echocardiogram on 08/18/2016 showing LV EF of 70% and diastolic dysfunction, and the RVSP was wi thin normal limits. 3. Head CT showing a diffuse subarachnoid hemorrhage. This was done on 08/18/2016. 4. Head CTA on 08/18; the CTA was unable to demonstrate the source of the patient's diffuse subarac hnoid bleeding. 5. Right frontal ventriculostomy at bedside by Viridiana Young DO. 6. Catheter embolization on 08/19 with coil embolization of the ruptured anterior communicating art jesika aneurysm. 7. Head CT done on 08/26 showing no change since the earlier CT; also noting paranasal sinus sinuse s were clear. 8. Head CT was also performed on 08/29 showing no significant interval change in hydrocephalus with mention of a right transfrontal ventricular catheter. There was also no significant change in the bilateral diffuse subarachnoid hemorrhage and intraventricular hemorrhage. 9. Another head CT was performed on 08/30 showing interval removal of the right transfrontal ventri culostomy catheter. There was development of a pneumocephalus. Also noted were multiple areas of p arenchymal, subarachnoid, and subdural hemorrhage, that were all unchanged. HOSPITAL COURSE: This is an 89-year-old female, who was otherwise healthy, presented with nausea an d vomiting and subsequently was found to have a subarachnoid hemorrhage secondary to the rupture of an anterior communicating artery. She underwent coil embolization of the ruptured aneurysm and plac ement of a ventriculostomy tube. Her neurologic status demonstrated an encephalopathy which was fel t secondary to multiple medications and possibly due to an infection. Cultures were all negative of the blood and urine; although, the urine did grow 3 colonies of gram-negative rods which was felt t o be a colonization. As her encephalopathy improved, she demonstrated neurologically an expressive and receptive aphasia which was felt to be neurologic deficits secondary to her subarachnoid hemorrh age and intraparenchymal hemorrhage. It was difficult for her to follow commands, although her swal lowing function appeared to be normal. As a result of this, she was unable to gain adequate nutriti on, and a PEG tube was placed on 09/02 by Interventional Radiology. The PEG tube functioned well an d dietary prescribed a nutritional plan which she tolerated at full dose. The final dietary recomme ndations are to do bolus feedings to assist in allowing her time for rehabilitation. She was felt t o have low-grade fevers, but cultures were negative; antibiotics were stopped, and she remained afeb rile. LINES AT THE TIME OF DISCHARGE: PEG tube and Barajas catheter. SIGNIFICANT LABORATORY FINDINGS: At the time of discharge, WBC 10,000, hemoglobin 12,000. INR norm al. Chemistry panel is normal. Hemoglobin A1c was 5.2. Albumin 2.8. Urine culture showed 3 colon ies of a gram-negative kyrie, felt to be a contaminant. DISCHARGE MEDICATIONS: MiraLAX 17 g p.o. h.s. p.r.n., Zofran 4 mg p.o. q.4 hours p.r.n. nausea, ome [place]-3 fatty acids 1000 mg p.o. daily, multivitamin daily, melatonin 1.5 mg p.o. q.h.s. for sleep, jett cium carbonate 500 mg p.o. b.i.d., Tylenol 650 mg per rectum q.4 hours p.r.n. fever and pain and Tyl enol 650 mg p.o. q.4 hours p.r.n. pain. PLAN: Patient's dietary plan will be as follows: All medications are to be given per her PEG tube. Nutritional plans as follows: Bolus feedings of 220 mL 5 times a day, at 0800, 1100, 1400, 1700, 2 000 hours, delivered over 30 minutes. Follow each bolus feeding with 110 mL of free water and flush with 55 mL of water before and 55 mL after following feedings. These comments can be found in the order section under tube feeding details dated 09/04 at 1139 hours. The patient is being discharged to inpatient rehab in [place]. Followup care will be through Neuros urgery and Neurology. TIME: This discharge required 60 minutes, greater than 50% in counseling and coordinating care. /[id number]/MODL
== END 2016-09-05 16:00 | DRG 20 ==
LOC: INTOOBSV 01:42 → F2W 07:50 → F2N 15:12 → OBSVTOIN 08-19 09:41 → F2N 08-31 18:00 → F3N 09-04 18:20
PROVIDERS: ADMIT Internal Medicine; ATTEND Internal Medicine Pulmonary Disease
PROC: 009630Z Drainage of Cerebral Ventricle with Drainage Device, Percutaneous Approach (ICD-10-PCS; 2016-08-18)
PROC: 30233R1 Transfusion of Nonautologous Platelets into Peripheral Vein, Percutaneous Approach (ICD-10-PCS; 2016-08-18)
PROC: 03LG3DZ Occlusion of Intracranial Artery with Intraluminal Device, Percutaneous Approach (ICD-10-PCS; principal; 2016-08-19)
PROC: B3141ZZ Fluoroscopy of Left Common Carotid Artery using Low Osmolar Contrast (ICD-10-PCS; principal; 2016-08-19)
PROC: B3161ZZ Fluoroscopy of Right Internal Carotid Artery using Low Osmolar Contrast (ICD-10-PCS; principal; 2016-08-19)
PROC: B31F1ZZ Fluoroscopy of Left Vertebral Artery using Low Osmolar Contrast (ICD-10-PCS; principal; 2016-08-19)
PROC: 0DH63UZ Insertion of Feeding Device into Stomach, Percutaneous Approach (ICD-10-PCS; 2016-09-03)
DX: I60.2 Nontraumatic subarachnoid hemorrhage from anterior communicating artery (principal); G93.40 Encephalopathy, unspecified; G93.89 Other specified disorders of brain; G91.9 Hydrocephalus, unspecified; J98.11 Atelectasis; E43 Unspecified severe protein-calorie malnutrition; R47.01 Aphasia; R51 Headache; R50.9 Fever, unspecified; R82.71 Bacteriuria; I67.1 Cerebral aneurysm, nonruptured; K59.00 Constipation, unspecified; Z66 Do not resuscitate
CPT/HCPCS: 92507-GN; 92523-GN; 92610-GN; 96374; 97112-GP; 97116-GP; 97162-GP; 97166-GO; 97530-GO; 97530-GP; 97535-GO; C1769; C1887; C1894; G0378; G8978-GP-CJ; G8978-GP-CK; G8979-GP-CI; G8987-GO-CJ; G8987-GO-CL; G8988-GO-CI; G8988-GO-CJ; G8989-GO-CM; G8996-GN-CH; G8997-GN-CH; G8998-GN-CH; G9165-GN-CJ; G9165-GN-CL; G9166-GN-CH; G9166-GN-CJ; J0692; J0696; J1100; J1644; J1650; J2001; J2060; J2250; J2310; J2370; J2405; J2704; J3010; J3370; P9035; Q9967

== ENCOUNTER 2016-09-05 12:49 | Inpatient (IN) | payer OTHER ==
--- NOTE | 2016-09-05 17:35 | PDOREHIP ---
Admission [facility] - Admission - 3 Day Assessment Period Admission Date/Day 1: 09/05/16 Day 2: 09/06/16 Day 3: 09/07/16 - Active Diagnoses Comorbidities and Co-existing Conditions at Admission: 65693. None of the Above - Skin Conditions Unhealed Pressure Ulcer (1 or more/Stage 1 or >)-Admission: 0. No
[2016-09-05] MEDS ORDERED: ACETAMINOPHEN 325 MG TAB TUBE PRN (17:41)
[2016-09-05] MEDS ORDERED: ACETAMINOPHEN 650 MG SUPP PR PRN (17:41)
[2016-09-05] MEDS ORDERED: ONDANSETRON DISINTEGRATING 4 MG TAB TUBE PRN (17:41)
--- NOTE | 2016-09-05 19:06 | GHP ---
[f rep st] HISTORY AND PHYSICAL POST ADMISSION PHYSICIAN EVALUATION AND REHABILITATION TREATMENT PLAN DATE OF ADMISSION: 09/05/2016 DATE OF EVALUATION: 09/05/2016 TIME OF EVALUATION: 1730 REFERRING FACILITY: [facility]. REFERRING PHYSICIAN: Aileen Epstein MD IMPAIRMENT GROUP: 2.1 DATE OF ONSET: 08/18/2016 CONSULTATION PHYSICIANS: Neurosurgery initially Dr. Young; Pulmonary/ Critical Care, Dr. Ann; Neurology, Dr. Aguilera; Palliative Care, Andria Fernandez, Nurse Practitioner; and Infectious Disease, Dr. Noguera. REHABILITATION DIAGNOSIS: Debility and cognitive impairment status post subarachnoid hemorrhage. ETIOLOGIC DIAGNOSIS: Nontraumatic brain dysfunction. DATE OF SURGERY: 08/19/2016 HISTORY OF PRESENT ILLNESS: Mrs. Fatima came to [facility] with a severe headache, acute nausea/vomiting, and altered mental status. She was found to have a subarachnoid hemorrhage for which a ventriculostomy was placed initially and subsequently on 08/19, she had coil embolization of a ruptured anterior communicating artery aneurysm. She had serial head CTs and eventual removal of the ventriculostomy. She developed delirium with an altered sleep- wake cycle. There was persistent hydrocephalus and development of pneumocephalus. She had hypoxemia. She had fevers, but no infectious source was found. She ceased to take any p.o. medications or nutrition so a PEG tube was placed for nutrition. She was considered stabilized and transferred to inpatient rehabilitation. She is currently very sleepy. Family reports that she was very alert and somewhat distressed in the ambulance ride from [facility] to inpatient rehabilitation and that perhaps she is tired due to the elevated state of alertness that she had. Other studies labs in the hospital: Yesterday her basic metabolic profile was overall within normal limits. She had a slightly low CO2 at 20 and an elevated glucose at 132. Calcium, phosphorus, and magnesium were normal. TSH was normal on 08/18/2016. Troponin was elevated with a peak troponin being 0.299 on 08/18/2016 and it subsequently declined. Brain natriuretic peptide was checked and it was elevated at 1260 consistent with possible congestive heart failure. Liver function tests were within normal limits but for a low albumin. Hemoglobin A1c was 5.2. CBC yesterday showed anemia with a hemoglobin of 12.3 , hematocrit of 36.8. These had improved over the 2 prior days. She had an elevated white count at 10.65. There was somewhat of a left shift with 0.11 immature granulocytes. Urinalysis on 08/27 appears to be positive; however, urine culture grew 3 colony types. Lumbar puncture was obtained twice, and both times it was hemorrhagic, and CSF culture was negative. She received vancomycin briefly, but it was discontinued subsequently. Trough level was therapeutic. An echocardiogram was done which showed normal ejection fraction with hyperdynamic wall motion, diastolic dysfunction, and mild mitral regurgitation. PRECAUTIONS: She is a fall risk. She is an aspiration risk. She has seizure risk. ACTIVE COMORBIDITIES: She has no active tier 1, tier 2, or tier 3 comorbidities. PAST MEDICAL HISTORY: She has a history of psoriasis. PAST SURGICAL HISTORY: She has had a cholecystectomy and a left inguinal hernia repair. ALLERGIES: There are no known drug allergies. PRE-HOSPITAL MEDICATIONS: I do not have a full list. ADMISSION MEDICATIONS: 1. Acetaminophen 650 mg per tube or p.r. q.4 hours p.r.n. 2. Melatonin 1.5 mg per tube q.h.s. 3. Ondansetron 4 mg per tube q.4 hours p.r.n. 4. Polyethylene glycol 70 g per tube q.h.s. 5. Calcium carbonate b.i.d. 6. Multivitamin q. day. 7. [place]-3 fatty acids q. day. FAMILY HISTORY: Noncontributory. PSYCHOSOCIAL HISTORY: She is . She lives with her . She has multiple children and grandchildren. She has been very active with hiking and other activities. She is a nonsmoker and nondrinker. REVIEW OF SYSTEMS: Unobtainable due to obtundation. PHYSICAL EXAM: GENERAL: This is a well-nourished, well-developed, elderly woman who appears her chronologic age. Obtunded. Alerts to physical stimulation, but then returns to obtundation with no meaningful verbal response. HEENT: Extraocular movements are intact. Pupils are equal. Mucous membranes are dry. Dentition is in good condition. NECK: Supple. HEART: There is a regular rate and rhythm with no murmurs, rubs, or gallops. LUNGS: Clear to auscultation bilaterally. ABDOMEN: Soft, nontender, nondistended with normoactive bowel sounds and no hepatosplenomegaly. PEG tube site is clean. No erythema and no drainage, and mild discomfort when the tube is moved. EXTREMITIES: There is no cyanosis, clubbing, or edema. Radial and dorsalis pedis pulses are 2+ bilaterally. NEUROLOGIC: She is obtunded. She alerts to physical stimulation and occasionally to verbal stimulation. She withdraws to pain. She moves all extremities. Plantar reflex is indeterminate and confounded by withdrawal to pain. Deep tendon reflexes are 2+ bilaterally at the Achilles tendons, and hypoactive at the patellar and biceps tendons. SKIN: There is an approximately quarter-sized psoriatic rash on the left anterior knee. There are no decubitus ulcers. There is mild blanching erythema over the sacrum. CURRENT LEVEL OF FUNCTION: Per the preadmission screen: Regarding diet, feeding, and swallowing, she had been initially on a regular texture, thin liquids diet, but per the family, she eventually was refusing any oral nutrition , hydration, or medications so the PEG tube was placed for nutrition. For grooming, she required minimal to maximal assistance. For toileting, she required maximal assistance. Bladder and bowel were noted as continent, however , she currently has a Barajas catheter. Regarding bed mobility, she needed minimal to moderate assistance with voice cuing. Transfers were accomplished with minimal assistance with voice cuing. She was using a front-wheeled walker. Balance was contact guard to minimal assist. Endurance was fair. She was able to ambulate 200 feet with minimal assist and voice cuing. Regarding communication, she was noted to have receptive and expressive aphasia. Regarding cognition, she was also noted to have receptive and expressive aphasia. She was noted to be quite distractible requiring redirection with activity. IMPRESSION: Mrs. Subha Fatima is an 89-year-old woman who suffered a subarachnoid hemorrhage from a ruptured anterior communicating artery aneurysm. She required ventriculostomy and coiling of the aneurysm. She had persistent hydrocephalus and she had pneumocephalus after the ventriculostomy catheter was removed. She likely had hospital/ICU delirium with altered sleep-wake cycle. There were no infectious or metabolic causes of delirium noted, and she is not on sedating medications. She has, however, been able to cooperate with physical therapy and demonstrate function adequate for transfer to inpatient rehabilitation. Currently, however, she is quite obtunded. Question whether this may be due to excess stimulation in the drive from [facility] to inpatient rehabilitation or may be part of a waxing and waning picture of a hypoactive delirium. Assuming her alertness improves and she is able to participate, she will benefit from inpatient rehabilitation with physical therapy and occupational therapy to optimize her mobility and activities of daily living, and speech and language pathology regarding communication and to assess for swallowing issues. She will need nursing care for tube feeding, skin integrity, medication administration, fall risk and bowel and bladder. She will need care of a physician regarding delirium, pain management, risk for infection, and blood pressure management. Her goal is to complete inpatient rehabilitation and return home with her family. For a safe discharge, she will need to achieve independence with bed mobility and eating, and modified independence for grooming and transfers. It is expected that she will continue to require supervision for ambulation with an assistive device and assistance for bathing. She will need to be alert and to be able to follow 2-3 step commands. She will receive therapy on a modified schedule with physical therapy, occupational therapy, and speech and language pathology for 30-60 minutes per day per each discipline on 5-7 days of the week to total 15 hours a week or more. Her expected duration of stay is 7-10 days. It is anticipated that upon discharge, she will continue to benefit from home health services, including speech and language pathology, a home health aide, occupational therapy and physical therapy. ASSESSMENT AND PLAN: 1. Subarachnoid hemorrhage 08/18/16 status post coiling and ventriculostomy placement on 08/19/16 and ventriculostomy removal 08/30/16 with hydrocephalus and pneumocephalus and associated debility. Physical and occupational therapy to optimize mobility and activities of daily living. 2. Encephalopathy consistent with a hypoactive delirium to be assessed and treated per Speech and Language Pathology. I will order labs this evening including a comprehensive metabolic profile, a CBC and a TSH to evaluate for any current infectious or metabolic etiologies of her encephalopathy. 3. Nutritional risk with inability to take p.o. nutrition, hydration, and medications possibly due to encephalopathy. Continue tube feedings and hydration per tube. Nutritional status and hydration status will be further evaluated with a comprehensive metabolic profile this evening. 4. Intermittently elevated blood pressure. She will be monitored, and medications will be added or adjusted as needed. 5. Elevated troponin in the hospital. It was concluded that she did not actually suffer a myocardial infarction. However, with a troponin leak it is likely that she has coronary artery disease. 6. Possible CHF, with elevated BNP in the hospital and diastolic dysfunction on echocardiogram. Monitor fluid and cardiorespiratory status. 6. Given her obtundation and immobility, I will initiate a prophylactic dose enoxaparin. If her mobility improves, I will have a low threshold to discontinue it. 7. Expressive and receptive aphasia to be evaluated and treated per Speech and Language Pathology. 8. Asymptomatic bacteriuria. Unless she develops symptoms consistent with urinary tract infection, I will not recheck urinalysis. 9. Code status was established as do not resuscitate during a palliative care consult in the hospital and she will be continued with do not resuscitate status. 10. Presence of Barajas catheter. This will be discontinued as soon as her alertness improves and her mobility improves. /[id number]/MODL MTDD
[2016-09-05 19:33] LABS: % IMMATURE GRANULYOCYTES 0.9 % (0.0-1.1); ADD DIFF? NO; ADD MORPH? NO; ADD SCAN? NO; ATYPICAL LYMPHOCYTE FLAG 0 (0-99); FRAGMENT RBC FLAG 0 (0-99); HEMATOCRIT 36.7 % (38.0-47.0); LEFT SHIFT FLG 10 (0-99); LIPEMIA HEMOLYSIS FLAG 80 (0-99); MEAN CELL HEMOGLOBIN 31.3 pg (27.9-34.1); MEAN CELL HEMOGLOBIN CONCENTR. 32.7 g/dL (32.4-36.7); MEAN CELL VOLUME 95.8 fL (81.5-99.8); MEAN PLATELET VOLUME 10.6 fL (8.7-11.7); PLATELET CLUMPS FLAG 10 (0-99); PLATELET COUNT 265 10^3/uL (150-400); RED BLOOD CELL COUNT 3.83 10^6/uL (4.18-5.33); RED CELL DISTRIBUTION WIDTH 14.4 % (11.5-15.2)
[2016-09-05 19:40] LABS: ALANINE AMINOTRANSFERASE 77 IU/L (9-52); ALBUMIN 3.2 g/dL (3.5-5.0); ALKALINE PHOSPHATASE 117 IU/L (38-126); ANION GAP 9 mEq/L (8-16); ASPARTATE AMINOTRANSFERASE 18 IU/L (14-46); BILIRUBIN,TOTAL 0.9 mg/dL (0.1-1.4); CALCIUM 9.4 mg/dL (8.5-10.4); CARBON DIOXIDE 24 mEq/l (22-31); CHLORIDE 107 mEq/L (97-110); CREATININE 0.6 mg/dL (0.6-1.0); GLOMERULAR FILTRATION RATE > 60; GLUCOSE 130 mg/dL (70-100); POTASSIUM 4.1 mEq/L (3.5-5.2); SODIUM 140 mEq/L (134-144); TOTAL PROTEIN 5.8 g/dL (6.3-8.2)
[2016-09-05] MEDS: MELATONIN 3 MG TAB TUBE SCH (22:33)
[2016-09-05] MEDS: POLYETHYLENE GLYCOL 3350 17 GM PKT TUBE SCH (22:33)
[2016-09-06] MEDS ORDERED: ENOXAPARIN 40 MG/0.4 ML SYR SC SCH (09:00)
--- NOTE | 2016-09-06 10:33 | SOAPPROG ---
SOAP Progress Note Assessment/Plan: Assessment: * Subarachnoid hemorrhage 08/18/16 status post coiling and ventriculostomy placement on 08/19/16 and ventriculostomy removal 08/30/16 with hydrocephalus and pneumocephalus and associated debility. Physical and occupational therapy to optimize mobility and activities of daily living. * Encephalopathy consistent with a hypoactive delirium . Much improved today , alert and sitting in chair. Labs 09/05 evening not c/w infectious or metabolic etiology for obtundation yesterday. 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 * Nutritional risk with unwillingness to take p.o. nutrition, hydration, and medications possibly due to encephalopathy. Continue tube feedings and hydration per tube. Facilities Operator consult. * Intermittently elevated blood pressure. She will be monitored, and medications will be added or adjusted as needed. * Elevated troponin in the hospital. It was concluded that she did not actually suffer a myocardial infarction. However, with a troponin leak it is likely that she has coronary artery disease. * Possible CHF, with elevated BNP in the hospital and diastolic dysfunction on echocardiogram. Monitor fluid and cardiorespiratory status. * Given her obtundation and immobility, I will initiate a prophylactic dose enoxaparin. If her mobility improves, I will have a low threshold to discontinue it. * Asymptomatic bacteriuria. Unless she develops symptoms consistent with urinary tract infection, I will not recheck urinalysis. * Presence of Barajas catheter. This will be discontinued as soon as her alertness improves and her mobility improves. 09/06/16 10:46 Subjective: No complaints but has aphasia. Family reports that she slept overnight. Objective: Vital Signs Temp Pulse Resp BP Pulse Ox 36.6 C 70 14 152/57 H 94 09/06/16 06:09 09/06/16 06:09 09/06/16 06:09 09/06/16 06:09 09/06/16 06:09 Laboratory Results 09/05/16 18:05 09/05/16 18:05 09/05/16 09/06/16 09/07/16 05:59 05:59 05:59 Intake Total 330 Output Total 1000 Balance -670 Physical Exam - Physical Exam General Appearance: WD/WN, alert, no apparent distress Respiratory: normal breath sounds, No crackles, No rhonchi, No wheezing Cardiac/Chest: regular rate, rhythm, No edema Skin: normal color, warm/dry Neuro/Psych: alert, normal mood/affect, abnormal construction mgr II-XII (Mild L facial droop ), aphasia (Expressive and receptive. Inconsistent following commands.) ICD10 Worksheet Patient Problems: Problems Problem Status Onset Constipation Acute Palliative care encounter Acute Vomiting Acute
[2016-09-06] MEDS: POLYETHYLENE GLYCOL 3350 17 GM PKT TUBE SCH (21:37)
[2016-09-06] MEDS: MELATONIN 3 MG TAB TUBE SCH (21:37)
[2016-09-07] MEDS: ENOXAPARIN 30 MG/0.3 ML SYR SC SCH (08:19)
--- NOTE | 2016-09-07 11:18 | SOAPPROG ---
SOAP Progress Note Assessment/Plan: Assessment: Assessment: * Subarachnoid hemorrhage 08/18/16 status post coiling and ventriculostomy placement on 08/19/16 and ventriculostomy removal 08/30/16 with hydrocephalus and pneumocephalus and associated debility. Physical and occupational therapy to optimize mobility and activities of daily living. * Encephalopathy consistent with a hypoactive delirium . Much improved today , alert and sitting in chair. Labs 09/05 evening not c/w infectious or metabolic etiology for obtundation yesterday. wbc from 09/05 10.63. 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 * Nutritional risk with unwillingness to take p.o. nutrition, hydration, and medications possibly due to encephalopathy. Continue tube feedings and hydration per tube. Records Clerk consult. * Intermittently elevated blood pressure. She will be monitored, and medications will be added or adjusted as needed. BP THIS AM 112/52 * Elevated troponin in the hospital. It was concluded that she did not actually suffer a myocardial infarction. However, with a troponin leak it is likely that she has coronary artery disease. * Possible CHF, with elevated BNP in the hospital and diastolic dysfunction on echocardiogram. Monitor fluid and cardiorespiratory status. * Given her obtundation and immobility, I will initiate a prophylactic dose enoxaparin. If her mobility improves, I will have a low threshold to discontinue it. * Asymptomatic bacteriuria. Unless she develops symptoms consistent with urinary tract infection, I will not recheck urinalysis. * Presence of Barajas catheter. This will be discontinued as soon as her alertness improves and her mobility improves. Plan: 09/07/16 11:19 Subjective: Nursing staff reports she is still refusing oral intake. No other problems reported by staff or pt's son. Objective: Vital Signs Temp Pulse Resp BP Pulse Ox 36.7 C 65 15 112/52 L 92 09/07/16 06:38 09/07/16 06:38 09/07/16 06:38 09/07/16 06:38 09/07/16 06:38 Laboratory Results 09/05/16 18:05 09/05/16 18:05 09/06/16 09/07/16 09/08/16 05:59 05:59 05:59 Intake Total 330 1730 Output Total 1000 850 950 Balance -670 880 -950 Physical Exam - Physical Exam General Appearance: alert, thin Respiratory: other (lung field assessment difficult to assess due to patient's noncooperation) Cardiac/Chest: normal peripheral pulses, No edema, No JVD Abdomen: normal bowel sounds, non-tender, soft Skin: normal color, warm/dry Neuro/Psych: alert, aphasia (global), cognition abnormalities, speech abnormalities (will move all 4 extremities with prompting. ) ICD10 Worksheet Patient Problems: Problems Problem Status Onset Constipation Acute Palliative care encounter Acute Vomiting Acute
[2016-09-07 14:40] LABS: COLOR PALE YELLOW; LEUKOCYTE ESTERASE,URINE NEGATIVE (NEGATIVE); NITRITE,URINE NEGATIVE (NEGATIVE)
[2016-09-07 14:47] LABS: RBC,URINE 50-182 /hpf (0-3)
[2016-09-07] MEDS: MELATONIN 3 MG TAB TUBE SCH (21:13)
[2016-09-07] MEDS: POLYETHYLENE GLYCOL 3350 17 GM PKT TUBE SCH (21:14)
[2016-09-08] MEDS: ENOXAPARIN 30 MG/0.3 ML SYR SC SCH (09:23)
--- NOTE | 2016-09-08 09:50 | SOAPPROG ---
SOAP Progress Note Assessment/Plan: Assessment: Assessment: * Subarachnoid hemorrhage 08/18/16 status post coiling and ventriculostomy placement on 08/19/16 and ventriculostomy removal 08/30/16 with hydrocephalus and pneumocephalus and associated debility. HEAD CT FROM 09/06 DID NOT SHOW EVIDENCE OF A NEW BLEED OR WORSENING HYDROCEPHALUS. Physical and occupational therapy to optimize mobility and activities of daily living. * Encephalopathy consistent with a hypoactive delirium . Much improved today , alert and sitting in chair. Labs 09/05 evening not c/w infectious or metabolic etiology for obtundation yesterday. wbc from 09/05 10.63. 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 * Nutritional risk with unwillingness to take p.o. nutrition, hydration, and medications possibly due to encephalopathy. Continue tube feedings and hydration per tube. Beater Boss consult. ST CONTINUES TO ATTEMPT ORAL FEEDINGS WITH LITTLE SUCCESS. * Intermittently elevated blood pressure. She will be monitored, and medications will be added or adjusted as needed. BP THIS AM 112/52 * Elevated troponin in the hospital. It was concluded that she did not actually suffer a myocardial infarction. However, with a troponin leak it is likely that she has coronary artery disease. * Possible CHF, with elevated BNP in the hospital and diastolic dysfunction on echocardiogram. Monitor fluid and cardiorespiratory status. * Given her obtundation and immobility, I will initiate a prophylactic dose enoxaparin. If her mobility improves, I will have a low threshold to discontinue it. * Asymptomatic bacteriuria. Unless she develops symptoms consistent with urinary tract infection, I will not recheck urinalysis. * Presence of Barajas catheter. This will be discontinued as soon as her alertness improves and her mobility improves. Plan: 09/07/16 11:19 09/08/16 10:02 Subjective: No problems reported per nursing, however, the OT working with her this am says she has regressed from when [facility] was [facility] Objective: Vital Signs Temp Pulse Resp BP Pulse Ox 36.8 C 72 18 148/74 H 93 09/08/16 07:51 09/08/16 07:51 09/08/16 07:51 09/08/16 07:51 09/08/16 07:51 Laboratory Results 09/05/16 18:05 09/05/16 18:05 09/07/16 09/08/16 09/09/16 05:59 05:59 05:59 Intake Total 1730 920 Output Total 850 2450 Balance 880 -1530 Physical Exam - Physical Exam General Appearance: alert, thin Neck: non-tender, supple Respiratory: lungs clear, normal breath sounds Cardiac/Chest: regular rate, rhythm, No edema Abdomen: normal bowel sounds, non-tender, soft, other (PEG TUBE in place) Skin: warm/dry Extremities: No swelling, No Shantel's sign Neuro/Psych: alert, aphasia (global), cognition abnormalities ICD10 Worksheet Patient Problems: Problems Problem Status Onset Constipation Acute Palliative care encounter Acute Vomiting Acute
[2016-09-08] MEDS: MELATONIN 3 MG TAB TUBE SCH (20:13)
[2016-09-08] MEDS: POLYETHYLENE GLYCOL 3350 17 GM PKT TUBE SCH (23:36)
[2016-09-09] MEDS: ENOXAPARIN 30 MG/0.3 ML SYR SC SCH (09:10)
[2016-09-09] MEDS ORDERED: FLUCONAZOLE 150 MG TAB TUBE ONE ×2 (09:50→12:30)
--- NOTE | 2016-09-09 09:57 | SOAPPROG ---
SOAP Progress Note Assessment/Plan: Assessment: * Subarachnoid hemorrhage 08/18/16 status post coiling and ventriculostomy placement on 08/19/16 and ventriculostomy removal 08/30/16 with hydrocephalus and pneumocephalus and associated debility. Initial FIM 19. Retropulsive. Mod A of 2 for bed mobility, sit to stand, total A dressing, G&H. Ambulated 20'. Continue Physical and occupational therapy to optimize mobility and activities of daily living. * Encephalopathy consistent with a hypoactive delirium . Improved today 09/06/16 , alert and sitting in chair. Labs 09/05 evening not c/w infectious or metabolic etiology for obtundation. Trial of amantadine as stimulant. D/W Dr. Cano, Neurology: recommends MRI w/out contrast to determine volume/extent of damage to L hemisphere and determine prognosis. MRI scheduled for 09/10, and Neurology consulted. 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 * Nutritional risk with unwillingness to take p.o. nutrition, hydration, and medications possibly due to encephalopathy. Continue tube feedings and hydration per tube. Aircraft Line Assembler consult. * Refusing PO and mouth care, +/- thrush. Single dose fluconazole. Chronic/stable conditions: * Intermittently elevated blood pressure. Resolved. * Elevated troponin in the hospital. It was concluded that she did not actually suffer a myocardial infarction. However, with a troponin leak it is likely that she has coronary artery disease. * Possible CHF, with elevated BNP in the hospital and diastolic dysfunction on echocardiogram. Monitor fluid and cardiorespiratory status. * Given her obtundation and immobility, I will initiate a prophylactic dose enoxaparin. If her mobility improves, I will have a low threshold to discontinue it. * Asymptomatic bacteriuria. Unless she develops symptoms consistent with urinary tract infection, I will not recheck urinalysis. * Presence of Barajas catheter. This will be discontinued as soon as her alertness improves and her mobility improves. Attended staffing, 15 min. D/W case mgmt, nursing, process design chemical engineer, pharmacy, PT, OT , TELEMARKETER SUPERVISOR. Brief meeting with family and case management re plan for MRI for prognostication. Estimated LOS to follow MRI; continue efforts and rehabilitation. 09/09/16 14:24 09/09/16 22:40 Subjective: No complaints. Continues to refuse PO feeding and mouth care.. reports she was talkative this morning. Objective: Vital Signs Temp Pulse Resp BP Pulse Ox 36.5 C 70 18 127/51 H 91 L 09/08/16 20:00 09/08/16 20:00 09/08/16 20:00 09/08/16 20:00 09/08/16 20:00 Laboratory Results 09/05/16 18:05 09/05/16 18:05 09/08/16 09/09/16 09/10/16 05:59 05:59 05:59 Intake Total 920 1930 Output Total 2450 975 Balance -1530 955 - Time Spent With Patient Time Spent With Patient: Greater than 35 minutes floor time today, including more than 50% of time in coordination of care during staffing, and counseling patient. Physical Exam - Physical Exam General Appearance: WD/WN, alert, no apparent distress EENT: other (MMs dry, tongue coated, + halitosis) Respiratory: normal breath sounds, No crackles, No rhonchi, No wheezing Cardiac/Chest: regular rate, rhythm, No edema Abdomen: normal bowel sounds, non-tender, soft, No distended Skin: normal color, warm/dry Neuro/Psych: alert, normal mood/affect ICD10 Worksheet Patient Problems: Problems Problem Status Onset Constipation Acute Palliative care encounter Acute Vomiting Acute
[2016-09-09] MEDS: AMANTADINE HCL 100 MG/10 ML UDCUP TUBE SCH (15:09)
[2016-09-09] MEDS: MELATONIN 3 MG TAB TUBE SCH (21:28)
[2016-09-09] MEDS: POLYETHYLENE GLYCOL 3350 17 GM PKT TUBE SCH (21:38)
[2016-09-10] MEDS: ENOXAPARIN 30 MG/0.3 ML SYR SC SCH (08:48)
[2016-09-10] MEDS ORDERED: MIDAZOLAM 2 MG/2 ML VIAL ONE (11:30)
[2016-09-10] MEDS ORDERED: fentaNYL 100 MCG/2 ML INJ ONE (11:31)
[2016-09-10] MEDS: AMANTADINE HCL 100 MG/10 ML UDCUP TUBE SCH ×2 (13:13→14:22)
--- NOTE | 2016-09-10 15:13 | SOAPPROG ---
SOAP Progress Note Assessment/Plan: Assessment: * Subarachnoid hemorrhage 08/18/16 status post coiling and ventriculostomy placement on 08/19/16 and ventriculostomy removal 08/30/16 with hydrocephalus and pneumocephalus and associated debility. Initial FIM 19. Retropulsive. Mod A of 2 for bed mobility, sit to stand, total A dressing, G&H. Ambulated 20'. Continue Physical and occupational therapy to optimize mobility and activities of daily living. * Encephalopathy consistent with a hypoactive delirium . Brain MRI result d/w Neurology Dr. Cano: w/out irreversible ischemic change; still with diffuse SAH and atrophy. Subdural hematomas (L parieto-occipital and R occipital) could be affecting visual processing and contributing to retropulsion ? Labs 09/05 evening not c/w infectious or metabolic etiology for obtundation. Trial of amantadine as stimulant. 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 Likely due to diffuse SAH with no focal L temporal lesion. * Nutritional risk with unwillingness to take p.o. nutrition, hydration, and medications possibly due to encephalopathy. Continue tube feedings and hydration per tube. Operations Research Scientist consult. * Refusing PO and mouth care, +/- thrush. Single dose fluconazole 09/09/16. Chronic/stable conditions: * Intermittently elevated blood pressure. Resolved. * Elevated troponin in the hospital. It was concluded that she did not actually suffer a myocardial infarction. However, with a troponin leak it is likely that she has coronary artery disease, with exacerbation due to sympathetic stiluation caused by SAH. * Possible CHF, with elevated BNP in the hospital and diastolic dysfunction on echocardiogram. Monitor fluid and cardiorespiratory status. * Given her obtundation and immobility, I will initiate a prophylactic dose enoxaparin. If her mobility improves, I will have a low threshold to discontinue it. * Asymptomatic bacteriuria. Unless she develops symptoms consistent with urinary tract infection, I will not recheck urinalysis. * Presence of Barajas catheter. This will be discontinued as soon as her alertness improves and her mobility improves. Estimated LOS to depend on progress with rehabilitation. 09/10/16 15:13 Subjective: No complaints. Sedated after brain MRI today. Objective: Vital Signs Temp Pulse Resp BP Pulse Ox 36.3 C 58 L 15 138/91 H 95 09/10/16 14:14 09/10/16 14:14 09/10/16 14:14 09/10/16 14:14 09/10/16 14:14 Laboratory Results 09/05/16 18:05 09/05/16 18:05 09/09/16 09/10/16 09/11/16 05:59 05:59 05:59 Intake Total 1930 1160 Output Total 975 0 1100 Balance 955 1160 -1100 Physical Exam - Physical Exam General Appearance: WD/WN, no apparent distress, other (sleeping. Partial arousal to verbal and tactile stimulation.) Respiratory: normal breath sounds, No crackles, No rhonchi, No wheezing Cardiac/Chest: regular rate, rhythm, No edema Skin: normal color, warm/dry ICD10 Worksheet Patient Problems: Problems Problem Status Onset Constipation Acute Palliative care encounter Acute Vomiting Acute
[2016-09-10] MEDS: MELATONIN 3 MG TAB TUBE SCH (21:29)
[2016-09-10] MEDS: POLYETHYLENE GLYCOL 3350 17 GM PKT TUBE SCH (21:30)
--- NOTE | 2016-09-11 10:09 | SOAPPROG ---
SOAP Progress Note Assessment/Plan: Assessment: * Subarachnoid hemorrhage 08/18/16 status post coiling and ventriculostomy placement on 08/19/16 and ventriculostomy removal 08/30/16 with hydrocephalus and pneumocephalus and associated debility. Initial FIM 19. Retropulsive. Mod A of 2 for bed mobility, sit to stand, total A dressing, G&H. Ambulated 20'. Continue Physical and occupational therapy to optimize mobility and activities of daily living. * Encephalopathy consistent with a hypoactive delirium. Iproving; increasingly interactive today 09/11/16. Continue amantadine as stimulant. Brain MRI result d/w Neurology Dr. Cano: w/out irreversible ischemic change; still with diffuse SAH and atrophy. Subdural hematomas (L parieto-occipital and R occipital) could be affecting visual processing and contributing to retropulsion ? Labs 09/05 evening not c/w infectious or metabolic etiology for obtundation. 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 Likely due to diffuse SAH with no focal L temporal lesion. * Nutritional risk with unwillingness to take p.o. nutrition, hydration, and medications possibly due to encephalopathy. Continue tube feedings and hydration per tube. Medical Coding Technician consult. * Refusing PO and mouth care, +/- thrush. Single dose fluconazole 09/09/16. Chronic/stable conditions: * Intermittently elevated blood pressure. Resolved. * Elevated troponin in the hospital. It was concluded that she did not actually suffer a myocardial infarction. However, with a troponin leak it is likely that she has coronary artery disease, with exacerbation due to sympathetic stiluation caused by SAH. * Possible CHF, with elevated BNP in the hospital and diastolic dysfunction on echocardiogram. Monitor fluid and cardiorespiratory status. * Given her obtundation and immobility, I will initiate a prophylactic dose enoxaparin. If her mobility improves, I will have a low threshold to discontinue it. * Asymptomatic bacteriuria. Unless she develops symptoms consistent with urinary tract infection, I will not recheck urinalysis. * Presence of Barajas catheter. This will be discontinued as soon as her alertness improves and her mobility improves. Estimated LOS to depend on progress with rehabilitation. 09/11/16 10:06 Subjective: No complaints. Reports she's thirsty when asked. Objective: Vital Signs Temp Pulse Resp BP Pulse Ox 36.5 C 75 16 94/59 L 92 09/11/16 06:57 09/11/16 06:57 09/11/16 06:57 09/11/16 06:57 09/11/16 06:57 Laboratory Results 09/05/16 18:05 09/05/16 18:05 09/10/16 09/11/16 09/12/16 05:59 05:59 05:59 Intake Total 1160 1600 Output Total 0 2000 Balance 1160 -400 Physical Exam - Physical Exam General Appearance: WD/WN, alert, no apparent distress Respiratory: normal breath sounds, No crackles, No rhonchi, No wheezing Cardiac/Chest: regular rate, rhythm, No edema Skin: normal color, warm/dry Neuro/Psych: alert, normal mood/affect, aphasia, other (Retropulsive. Takes cup of water but does not hold straight; aide assists to bring to her mouth and she takes a sip.) ICD10 Worksheet Patient Problems: Problems Problem Status Onset Constipation Acute Palliative care encounter Acute Vomiting Acute
[2016-09-11] MEDS: ENOXAPARIN 30 MG/0.3 ML SYR SC SCH (11:26)
[2016-09-11] MEDS: AMANTADINE HCL 100 MG/10 ML UDCUP TUBE SCH ×2 (11:26→15:38)
[2016-09-11] MEDS: MELATONIN 3 MG TAB TUBE SCH (21:40)
[2016-09-11] MEDS: POLYETHYLENE GLYCOL 3350 17 GM PKT TUBE SCH (21:43)
[2016-09-12] MEDS: ENOXAPARIN 30 MG/0.3 ML SYR SC SCH (08:09)
[2016-09-12] MEDS: AMANTADINE HCL 100 MG/10 ML UDCUP TUBE SCH ×2 (08:09→14:53)
--- NOTE | 2016-09-12 08:54 | SOAPPROG ---
SOAP Progress Note Assessment/Plan: Assessment: 89 yo F with subarachnoid hemorrhage 08/18/16 status post coiling and ventriculostomy placement on 08/19/16 and ventriculostomy removal 08/30/16 with hydrocephalus and pneumocephalus and associated debility. Today's update participating well on therapies, making slow progress. Sleep does not appear to be impacted by amantadine. If that became a problem, would recommend pushing back the 2 PM dose to noon. Continue rehab plan of care. * Impaired mobility, self care, and cognition. Initial FIM 19. Retropulsive. Mod A of 2 for bed mobility, sit to stand, total A dressing, G&H. Ambulated 20' . Continue Physical and occupational therapy to optimize mobility and activities of daily living. Continue plan of care with speech therapy, physical therapy, occupational therapy. * Encephalopathy consistent with a hypoactive delirium. Iproving; increasingly interactive today 09/11/16. Continue amantadine as stimulant. Brain MRI result d/w Neurology Dr. Cano: w/out irreversible ischemic change; still with diffuse SAH and atrophy. Subdural hematomas (L parieto-occipital and R occipital) could be affecting visual processing and contributing to retropulsion ? Labs 09/05 evening not c/w infectious or metabolic etiology for obtundation. 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 Likely due to diffuse SAH with no focal L temporal lesion. * Nutritional risk with unwillingness to take p.o. nutrition, hydration, and medications possibly due to encephalopathy. Continue tube feedings and hydration per tube. Bird Cage Assembler consult. * Refusing PO and mouth care, +/- thrush. Single dose fluconazole 09/09/16. Chronic/stable conditions: * Intermittently elevated blood pressure. Resolved. * Elevated troponin in the hospital. It was concluded that she did not actually suffer a myocardial infarction. However, with a troponin leak it is likely that she has coronary artery disease, with exacerbation due to sympathetic tone caused by SAH. * Possible CHF, with elevated BNP in the hospital and diastolic dysfunction on echocardiogram. Monitor fluid and cardiorespiratory status. * Given her obtundation and immobility, I will initiate a prophylactic dose enoxaparin. If her mobility improves, I will have a low threshold to discontinue it. * Asymptomatic bacteriuria. Unless she develops symptoms consistent with urinary tract infection, I will not recheck urinalysis. * Presence of Barajas catheter. This will be discontinued as soon as her alertness improves and her mobility improves. Estimated LOS to depend on progress with rehabilitation. Plan: 09/12/16 08:50 Subjective: CC: Rehabilitation progress no acute events overnight. Patient seen with family in the room, nursing also in the room. She endorses that she has a good mood, she is making progress and therapies though somewhat slow. She had improved ambulation yesterday. No problem sleeping, is tired by the end of the day. Amantadine was recently started, continue to monitor her progress. She denies any pain, shortness of breath. Objective: Vital Signs Temp Pulse Resp BP Pulse Ox 36.5 C 79 18 125/69 H 94 09/11/16 18:37 09/11/16 18:37 09/11/16 18:37 09/11/16 18:37 09/11/16 18:37 Laboratory Results 09/05/16 18:05 09/05/16 18:05 09/11/16 09/12/16 09/13/16 05:59 05:59 05:59 Intake Total 1600 1050 Output Total 2000 1275 Balance -400 -225 Physical Exam - Physical Exam General Appearance: WD/WN, alert, no apparent distress Respiratory: normal breath sounds, No respiratory distress, No accessory muscle use Cardiac/Chest: normal peripheral pulses, regular rate, rhythm, No edema Abdomen: non-tender Skin: normal color, warm/dry, No cyanosis Extremities: non-tender, No pedal edema, No swelling Neuro/Psych: alert, normal mood/affect, cognition abnormalities (slowed cognition, not fully oriented. ) ICD10 Worksheet Patient Problems: Problems Problem Status Onset Constipation Acute Palliative care encounter Acute Vomiting Acute
[2016-09-12] MEDS: MELATONIN 3 MG TAB TUBE SCH (20:40)
[2016-09-12] MEDS: POLYETHYLENE GLYCOL 3350 17 GM PKT TUBE SCH (20:41)
--- NOTE | 2016-09-13 06:48 | NEUROPROG ---
Assessment: Pt case reviewed and details in note from Dr. Aguilera's original consult. I Reviewed the MRI and discussed it with patient's son. I also discussed with Dr. Ontiveros. She has aphasia and encephalopathy after SAH with SDH and no evidence of large stroke. Prognosis is fair and improvement may occur with extended time. I am happy to discuss any questions from the team or family as needed. Thanks, Jeff Cano Objective: Vital Signs Temp Pulse Resp BP Pulse Ox 36.7 C 66 16 149/78 H 93 09/13/16 05:10 09/13/16 05:10 09/13/16 05:10 09/13/16 05:10 09/13/16 05:10 Laboratory Results 09/05/16 18:05 09/05/16 18:05 09/12/16 09/13/16 09/14/16 05:59 05:59 05:59 Intake Total 1050 760 Output Total 1275 600 Balance -225 160 Allergies/Adverse Reactions: No Known Allergies Allergy (Verified 08/18/16 00:18)
[2016-09-13] MEDS: AMANTADINE HCL 100 MG/10 ML UDCUP TUBE SCH ×2 (09:21→14:30)
[2016-09-13] MEDS: ENOXAPARIN 30 MG/0.3 ML SYR SC SCH (09:21)
--- NOTE | 2016-09-13 10:52 | SOAPPROG ---
SOAP Progress Note Assessment/Plan: Assessment: * Subarachnoid hemorrhage 08/18/16 status post coiling and ventriculostomy placement on 08/19/16 and ventriculostomy removal 08/30/16 with hydrocephalus and pneumocephalus and associated debility. Initial FIM 19 on 09/09/16. Retropulsive. Mod A of 2 for bed mobility, sit to stand, total A dressing, G& H. Ambulated 20'. Mobility improved to min A; ambulated 100', as of 09/12/16. Continue Physical and occupational therapy to optimize mobility and activities of daily living. * Encephalopathy consistent with a hypoactive delirium. Improving; increasingly interactive. Continue amantadine as stimulant. Brain MRI result d/w Neurology Dr. Cano: w/out irreversible ischemic change; still with diffuse SAH and atrophy. Subdural hematomas (L parieto-occipital and R occipital) could be affecting visual processing and contributing to retropulsion ? Labs 09/05 evening not c/w infectious or metabolic etiology for obtundation. Continue PAPER COATING SUPERVISOR. 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 Likely due to diffuse SAH with no focal L temporal lesion. * Nutritional risk with unwillingness to take p.o. nutrition, hydration, and medications possibly due to encephalopathy. Continue tube feedings and hydration per tube. Glazier Structural Glass consult. * Refusing PO and mouth care, +/- thrush. Single dose fluconazole 09/09/16. Beginning to take PO nutrition 09/12/16. Chronic/stable conditions: * Intermittently elevated blood pressure. Resolved. * Elevated troponin in the hospital. It was concluded that she did not actually suffer a myocardial infarction. However, with a troponin leak it is likely that she has coronary artery disease, with exacerbation due to sympathetic stiluation caused by SAH. * Possible CHF, with elevated BNP in the hospital and diastolic dysfunction on echocardiogram. Monitor fluid and cardiorespiratory status. * Given her obtundation and immobility, I will initiate a prophylactic dose enoxaparin. If her mobility improves, I will have a low threshold to discontinue it. * Asymptomatic bacteriuria. Unless she develops symptoms consistent with urinary tract infection, I will not recheck urinalysis. * Presence of Barajas catheter. Improved alertness and mobility: d/c 09/13/16.. Estimated LOS to depend on progress with rehabilitation. 09/13/16 12:26 Subjective: No complaints. Slept well. Not in pain. No f/c, cough, dyspnea. Objective: Vital Signs Temp Pulse Resp BP Pulse Ox 36.7 C 66 16 149/78 H 93 09/13/16 08:00 09/13/16 08:00 09/13/16 08:00 09/13/16 08:00 09/13/16 08:00 Laboratory Results 09/05/16 18:05 09/05/16 18:05 09/12/16 09/13/16 09/14/16 05:59 05:59 05:59 Intake Total 1050 760 120 Output Total 1275 600 Balance -225 160 120 Physical Exam - Physical Exam General Appearance: WD/WN, alert, no apparent distress Respiratory: normal breath sounds, No crackles, No rhonchi, No wheezing Cardiac/Chest: regular rate, rhythm, No edema Skin: normal color, warm/dry Neuro/Psych: no motor/sensory deficits, alert, normal mood/affect, abnormal gait (Short steps, flexed posture), cognition abnormalities (Not comleting sentences. Vague responses beyond simmple social greetings and interactions.) ICD10 Worksheet Patient Problems: Problems Problem Status Onset Constipation Acute Palliative care encounter Acute Vomiting Acute
[2016-09-13] MEDS: MELATONIN 3 MG TAB TUBE SCH (20:15)
[2016-09-13] MEDS: POLYETHYLENE GLYCOL 3350 17 GM PKT TUBE SCH (20:15)
[2016-09-14] MEDS: ENOXAPARIN 30 MG/0.3 ML SYR SC SCH (08:31)
[2016-09-14] MEDS: AMANTADINE HCL 100 MG/10 ML UDCUP TUBE SCH ×2 (08:31→14:15)
--- NOTE | 2016-09-14 12:16 | SOAPPROG ---
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 today's update appears to have somewhat more confused mental status today, checking UA based on report of foul-smelling urine. no other localizing symptoms of infection, slightly decreased breath sounds on the left on exam though no other cough or localizing symptoms. post void residual has been slightly elevated, continue to monitor. * Subarachnoid hemorrhage 08/18/16 status post coiling and ventriculostomy placement on 08/19/16 and ventriculostomy removal 08/30/16 with hydrocephalus and pneumocephalus and associated debility. Initial FIM 19 on 09/09/16. Retropulsive. Mod A of 2 for bed mobility, sit to stand, total A dressing, G& H. Ambulated 20'. Mobility improved to min A; ambulated 100', as of 09/12/16. Continue Physical and occupational therapy to optimize mobility and activities of daily living. * Encephalopathy consistent with a hypoactive delirium. Continue amantadine as stimulant. Brain MRI 09/10/16result d/w Neurology Dr. Cano: w/out irreversible ischemic change; still with diffuse SAH and atrophy. Subdural hematomas (L parieto-occipital and R occipital) could be affecting visual processing and contributing to retropulsion? Labs 09/05 evening not c/w infectious or metabolic etiology for obtundation. Continue GRIEVANCE AND APPEALS SPECIALIST. 09/14 Checking urinalysis and monitoring more closely as it seems that she has slightly decreased mental status today. 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 Likely due to diffuse SAH with no focal L temporal lesion. * Nutritional risk with unwillingness to take p.o. nutrition, hydration, and medications possibly due to encephalopathy. Continue tube feedings and hydration per tube. Supervisor Die Casting consult. * Refusing PO and mouth care, +/- thrush. Single dose fluconazole 09/09/16. Beginning to take PO nutrition 09/12/16. Chronic/stable conditions: * Intermittently elevated blood pressure. Resolved. * Elevated troponin in the hospital. It was concluded that she did not actually suffer a myocardial infarction. However, with a troponin leak it is likely that she has coronary artery disease, with exacerbation due to sympathetic stiluation caused by SAH. * Possible CHF, with elevated BNP in the hospital and diastolic dysfunction on echocardiogram. Monitor fluid and cardiorespiratory status. * Given her obtundation and immobility, I will initiate a prophylactic dose enoxaparin. If her mobility improves, I will have a low threshold to discontinue it. * Asymptomatic bacteriuria. Unless she develops symptoms consistent with urinary tract infection, I will not recheck urinalysis. * Presence of Barajas catheter. Improved alertness and mobility: d/c 09/13/16.. Estimated LOS to depend on progress with rehabilitation. Plan: 09/12/16 08:50 09/14/16 12:12 Subjective: CC: cloudy urine no acute events overnight. Nursing staff endorses some cloudy, foul-smelling urine. The patient is oriented only times one today, denies any cough, pain on urination, shortness of breath, new numbness, tingling, or weakness. She says she slept well. Family not available today for further questions. Slightly elevated post void residuals from approximately 200 to 288 Objective: Vital Signs Temp Pulse Resp BP Pulse Ox 37.1 C 71 14 128/61 H 90 L 09/14/16 08:00 09/14/16 08:00 09/14/16 08:00 09/14/16 08:00 09/14/16 08:00 Laboratory Results 09/05/16 18:05 09/05/16 18:05 09/13/16 09/14/16 09/15/16 05:59 05:59 05:59 Intake Total 1920 1880 380 Output Total 600 450 Balance 1320 1880 -70 Physical Exam - Physical Exam General Appearance: WD/WN, alert, no apparent distress EENT: No scleral icterus (R), No scleral icterus (L) Respiratory: normal breath sounds, other ( possibly slightly decreased breath sounds in the middle of the left side, although not reproducible. Unclear she just had poor inspiration effort.), No respiratory distress, No accessory muscle use Cardiac/Chest: normal peripheral pulses, regular rate, rhythm, No edema, No systolic murmur Abdomen: normal bowel sounds, non-tender, soft Skin: normal color, warm/dry, No cyanosis Extremities: No pedal edema, No swelling Neuro/Psych: alert, other (appeared slightly more confused today than on prior exam), No oriented x 3 (x1 only) ICD10 Worksheet Patient Problems: Problems Problem Status Onset Constipation Acute Palliative care encounter Acute Vomiting Acute
[2016-09-14 18:34] LABS: COLOR YELLOW; LEUKOCYTE ESTERASE,URINE 3+ (NEGATIVE); NITRITE,URINE NEGATIVE (NEGATIVE)
[2016-09-14 18:41] LABS: MUCUS TRACE /lpf (NONE-1+); RBC,URINE 25-50 /hpf (0-3); WBC,URINE 50-182 /hpf (0-3)
[2016-09-14] MEDS: POLYETHYLENE GLYCOL 3350 17 GM PKT TUBE SCH (20:19)
[2016-09-14] MEDS: MELATONIN 3 MG TAB TUBE SCH (20:19)
[2016-09-14] MEDS: SULFAMETHOX/TMP 800/160 MG 1 TAB PO SCH (20:19)
[2016-09-15] MEDS: ENOXAPARIN 30 MG/0.3 ML SYR SC SCH (08:43)
[2016-09-15] MEDS: SULFAMETHOX/TMP 800/160 MG 1 TAB PO SCH ×2 (08:43→21:09)
[2016-09-15] MEDS: AMANTADINE HCL 100 MG/10 ML UDCUP TUBE SCH ×2 (08:44→13:17)
--- NOTE | 2016-09-15 10:51 | SOAPPROG ---
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 today's update Mental status improved though still confused today. Cultures consistent with gram-negative rods, lactose fermenting, currently on Bactrim one double strength BID. Continue rehab plan of care below, plan for conference on Friday. * Subarachnoid hemorrhage 08/18/16 status post coiling and ventriculostomy placement on 08/19/16 and ventriculostomy removal 08/30/16 with hydrocephalus and pneumocephalus and associated debility. Initial FIM 19 on 09/09/16. Retropulsive. Mod A of 2 for bed mobility, sit to stand, total A dressing, G& H. Ambulated 20'. Mobility improved to min A; ambulated 100', as of 09/12/16. Continue Physical and occupational therapy to optimize mobility and activities of daily living. * Encephalopathy consistent with a hypoactive delirium. Continue amantadine as stimulant. Brain MRI 09/10/16result d/w Neurology Dr. Cano: w/out irreversible ischemic change; still with diffuse SAH and atrophy. Subdural hematomas (L parieto-occipital and R occipital) could be affecting visual processing and contributing to retropulsion? Labs 09/05 evening not c/w infectious or metabolic etiology for obtundation. Continue TEACHING ARTIST. 09/14 Checking urinalysis and monitoring more closely as it seems that she has slightly decreased mental status today. 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 Likely due to diffuse SAH with no focal L temporal lesion. * Nutritional risk with unwillingness to take p.o. nutrition, hydration, and medications possibly due to encephalopathy. Continue tube feedings and hydration per tube. Booker consult. * Refusing PO and mouth care, +/- thrush. Single dose fluconazole 09/09/16. Beginning to take PO nutrition 09/12/16. * UTI: Likely contributing to encephalopathy, culture pending but currently consistent with a gram-negative kyrie, lactose fermenting, currently on Bactrim one double strength BID for five days. Chronic/stable conditions: * Intermittently elevated blood pressure. Resolved. * Elevated troponin in the hospital. It was concluded that she did not actually suffer a myocardial infarction. However, with a troponin leak it is likely that she has coronary artery disease, with exacerbation due to sympathetic stiluation caused by SAH. * Possible CHF, with elevated BNP in the hospital and diastolic dysfunction on echocardiogram. Monitor fluid and cardiorespiratory status. * Given her obtundation and immobility, I will initiate a prophylactic dose enoxaparin. If her mobility improves, I will have a low threshold to discontinue it. * Asymptomatic bacteriuria. Unless she develops symptoms consistent with urinary tract infection, I will not recheck urinalysis. * Presence of Barajas catheter. Improved alertness and mobility: d/c 09/13/16.. Estimated LOS to depend on progress with rehabilitation. Plan: 09/12/16 08:50 09/14/16 12:12 09/15/16 10:39 Subjective: CC: UTI Patient and family note improved cognition today on antibiotics, pt still denies any symptoms of UTI. Participating well today No new symptoms, denies any shortness of breath or chest pain, no new numbness, tingling, or weakness. Objective: Vital Signs Temp Pulse Resp BP Pulse Ox 36.9 C 70 16 123/68 H 94 09/15/16 07:09 09/15/16 07:09 09/15/16 07:09 09/15/16 07:09 09/15/16 07:09 Laboratory Results 09/05/16 18:05 09/05/16 18:05 09/14/16 09/15/16 09/16/16 05:59 05:59 05:59 Intake Total 1880 1210 380 Output Total 450 0 Balance 1880 760 380 Physical Exam - Physical Exam General Appearance: WD/WN, alert, no apparent distress Respiratory: No respiratory distress, No accessory muscle use Cardiac/Chest: normal peripheral pulses, regular rate, rhythm, No edema Skin: normal color, warm/dry, cyanosis Extremities: No pedal edema, No swelling Neuro/Psych: alert, normal mood/affect, disoriented to place, disoriented to time, No oriented x 3 (x1) ICD10 Worksheet Patient Problems: Problems Problem Status Onset Constipation Acute Palliative care encounter Acute Vomiting Acute
[2016-09-15] MEDS: MELATONIN 3 MG TAB TUBE SCH (21:09)
[2016-09-15] MEDS: POLYETHYLENE GLYCOL 3350 17 GM PKT TUBE SCH (21:32)
[2016-09-16] MEDS: AMANTADINE HCL 100 MG/10 ML UDCUP TUBE SCH ×2 (09:14→14:41)
[2016-09-16] MEDS: ENOXAPARIN 30 MG/0.3 ML SYR SC SCH (09:14)
[2016-09-16] MEDS: SULFAMETHOX/TMP 800/160 MG 1 TAB PO SCH ×2 (09:15→20:04)
--- NOTE | 2016-09-16 10:24 | SOAPPROG ---
SOAP Progress Note Assessment/Plan: Assessment: * Subarachnoid hemorrhage 08/18/16 status post coiling and ventriculostomy placement on 08/19/16 and ventriculostomy removal 08/30/16 with hydrocephalus and pneumocephalus and associated debility. Initial FIM 19 on 09/09/16, improved to 32 as of 09/16/16. Mobility improved; ambulated 200' X 2 4WW. Variable ADLs, poor attention, confused and apraxic. Mod A UB dressing, max A LB. Retropulsive when fatigued. Continue Physical and occupational therapy to optimize mobility and activities of daily living. * Encephalopathy consistent with a hypoactive delirium. Improving; increasingly interactive but disorientedconfused; minimal intermittent social language, otherwase very impaired re language and cognition. Continue amantadine as stimulant. Brain MRI 09/10/16result d/w Neurology Dr. Cano: w/ out irreversible ischemic change; still with diffuse SAH and atrophy. Labs 09/05 evening not c/w infectious or metabolic etiology for obtundation. Continue FIXED WING AIRCRAFT FLIGHT MECHANIC. 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 Likely due to diffuse SAH with no focal L temporal lesion. * Nutritional risk with unwillingness to take p.o. nutrition, hydration, and medications possibly due to encephalopathy. Continue tube feedings and hydration per tube. Radio Announcer consult. * Thrush resolved after single dose fluconazole 09/09/16. Participating in mouth care. Continues with minimal PO nutrition. * UTI being treated with Bactrim. Await C&S. Chronic/stable conditions: * Intermittently elevated blood pressure. Resolved. * Elevated troponin in the hospital. It was concluded that she did not actually suffer a myocardial infarction. However, with a troponin leak it is likely that she has coronary artery disease, with exacerbation due to sympathetic stiluation caused by SAH. * Possible CHF, with elevated BNP in the hospital and diastolic dysfunction on echocardiogram. Monitor fluid and cardiorespiratory status. * Given her obtundation and immobility, I will initiate a prophylactic dose enoxaparin. If her mobility improves, I will have a low threshold to discontinue it. * Barajas catheter. Improved alertness and mobility: d/c'd 09/13/16. Attended staffing, 15 min. D/W case mgmt, nursing, PT, OT, FIXED WING AIRCRAFT FLIGHT MECHANIC. Tentative discharge date 09/27/16. Disposition to depend on level of support available at home. Family conference 09/23/16. 09/16/16 12:35 Subjective: No complaints other than feeling fatigue this morning. Reports busy day yesterday preparing a birthday dinner for her daughter. Objective: Vital Signs Temp Pulse Resp BP Pulse Ox 36.9 C 61 16 120/68 92 09/16/16 08:00 09/16/16 08:00 09/16/16 08:00 09/16/16 08:00 09/16/16 08:00 Laboratory Results 09/05/16 18:05 09/05/16 18:05 09/15/16 09/16/16 09/17/16 05:59 05:59 05:59 Intake Total 1210 1190 120 Output Total 450 0 Balance 760 1190 120 - Time Spent With Patient Time Spent With Patient: Greater than 35 minutes floor time today, including more than 50% of time in coordination of care during staffing meeting, and counseling patient. Physical Exam - Physical Exam General Appearance: WD/WN, alert, no apparent distress, other (sleepy. Arouses to stimulation than falls asleep again.) Respiratory: normal breath sounds, No crackles, No rhonchi, No wheezing Cardiac/Chest: regular rate, rhythm, No edema Skin: normal color, warm/dry Neuro/Psych: no motor/sensory deficits, alert, normal mood/affect, disoriented to place, disoriented to time, other (Seen ambulating with PT after initial evaluation this morning, overall normal gait with 4WW.) ICD10 Worksheet Patient Problems: Problems Problem Status Onset Constipation Acute Palliative care encounter Acute Vomiting Acute
[2016-09-16] MEDS: MELATONIN 3 MG TAB TUBE SCH (20:04)
[2016-09-16] MEDS: POLYETHYLENE GLYCOL 3350 17 GM PKT TUBE SCH (20:04)
--- NOTE | 2016-09-17 08:32 | SOAPPROG ---
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 today's update doing well and therapies. Culture consistent with corral sensitive E. coli, continue Bactrim. Remainder of plan below is unchanged. Continues to be comfortably confused. * Subarachnoid hemorrhage 08/18/16 status post coiling and ventriculostomy placement on 08/19/16 and ventriculostomy removal 08/30/16 with hydrocephalus and pneumocephalus and associated debility. Initial FIM 19 on 09/09/16, improved to 32 as of 09/16/16. Mobility improved; ambulated 200' X 2 4WW. Variable ADLs, poor attention, confused and apraxic. Mod A UB dressing, max A LB. Retropulsive when fatigued. Continue Physical and occupational therapy to optimize mobility and activities of daily living. * Encephalopathy consistent with a hypoactive delirium. Continue amantadine as stimulant. Brain MRI 09/10/16result d/w Neurology Dr. Cano: w/out irreversible ischemic change; still with diffuse SAH and atrophy. Subdural hematomas (L parieto-occipital and R occipital) could be affecting visual processing and contributing to retropulsion. Continue TANK OFFICER. 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 Likely due to diffuse SAH with no focal L temporal lesion. * Nutritional risk with unwillingness to take p.o. nutrition, hydration, and medications possibly due to encephalopathy. Continue tube feedings and hydration per tube. [place] Machine Operator consult. * Refusing PO and mouth care, +/- thrush. Single dose fluconazole 09/09/16. Beginning to take PO nutrition 09/12/16. * UTI: E. coli corral sensitive. currently on Bactrim one double strength BID for five days, No plan to modify. Chronic/stable conditions: * Intermittently elevated blood pressure. Resolved. * Elevated troponin in the hospital. It was concluded that she did not actually suffer a myocardial infarction. However, with a troponin leak it is likely that she has coronary artery disease, with exacerbation due to sympathetic stiluation caused by SAH. * Possible CHF, with elevated BNP in the hospital and diastolic dysfunction on echocardiogram. Monitor fluid and cardiorespiratory status. * Given her obtundation and immobility, I will initiate a prophylactic dose enoxaparin. If her mobility improves, I will have a low threshold to discontinue it. * Asymptomatic bacteriuria. Unless she develops symptoms consistent with urinary tract infection, I will not recheck urinalysis. * Presence of Barajas catheter. Improved alertness and mobility: d/c 09/13/16.. Tentative discharge date 09/27/16. Disposition to depend on level of support available at home. Family conference 09/23/16. 09/17/16 08:29 09/17/16 09:05 Subjective: CC: UTI no acute events overnight. Culture consistent with E. coli, corral sensitive. Today she does not endorse any worry, she notes that she has no new shortness of breath or chest pain, no new numbness, tingling, or weakness. She remains fairly disoriented and stated "I haven't fought the police today, so that's good ". Family not available in the room to chat, patient had no concerns. No reports of anything interfering with therapy. Objective: Vital Signs Temp Pulse Resp BP Pulse Ox 36.9 C 61 16 120/68 92 09/16/16 08:00 09/16/16 08:00 09/16/16 08:00 09/16/16 08:00 09/16/16 08:00 Microbiology 09/14/16 18:35 Urine Culture - Final Urine,Clean Catch Escherichia Coli Laboratory Results 09/05/16 18:05 09/05/16 18:05 09/16/16 09/17/16 09/18/16 05:59 05:59 05:59 Intake Total 1190 2320 Output Total 0 0 Balance 1190 2320 Physical Exam - Physical Exam General Appearance: WD/WN, alert, no apparent distress Respiratory: lungs clear, normal breath sounds, No respiratory distress, No accessory muscle use Cardiac/Chest: normal peripheral pulses, regular rate, rhythm, No edema Skin: normal color, warm/dry, No cyanosis Extremities: No pedal edema, No swelling Neuro/Psych: alert, normal mood/affect, disoriented to place, disoriented to time, other (Confused with confabulation) ICD10 Worksheet Patient Problems: Problems Problem Status Onset Constipation Acute Palliative care encounter Acute Vomiting Acute
[2016-09-17] MEDS: SULFAMETHOX/TMP 800/160 MG 1 TAB PO SCH (08:50)
[2016-09-17] MEDS: ENOXAPARIN 30 MG/0.3 ML SYR SC SCH (08:50)
[2016-09-17] MEDS: AMANTADINE HCL 100 MG/10 ML UDCUP TUBE SCH ×2 (08:50→14:58)
[2016-09-17] MEDS ORDERED: SULFAMETHOX/TMP 800/160 MG 1 TAB TUBE SCH (21:00)
[2016-09-17] MEDS: MELATONIN 3 MG TAB TUBE SCH (21:58)
[2016-09-17] MEDS: POLYETHYLENE GLYCOL 3350 17 GM PKT TUBE SCH (21:58)
[2016-09-17] MEDS: SULFAMETHOX TUBE SCH (21:59)
[2016-09-17] MEDS: TMP TUBE SCH (21:59)
[2016-09-18] MEDS: TMP TUBE SCH ×2 (09:03→20:10)
[2016-09-18] MEDS: ENOXAPARIN 30 MG/0.3 ML SYR SC SCH (09:03)
[2016-09-18] MEDS: SULFAMETHOX TUBE SCH ×2 (09:03→20:10)
--- NOTE | 2016-09-18 10:25 | SOAPPROG ---
SOAP Progress Note Assessment/Plan: Assessment: * Subarachnoid hemorrhage 08/18/16 status post coiling and ventriculostomy placement on 08/19/16 and ventriculostomy removal 08/30/16 with hydrocephalus and pneumocephalus and associated debility. Initial FIM 19 on 09/09/16, improved to 32 as of 09/16/16. Mobility improved; ambulated 200' X 2 4WW. Variable ADLs, poor attention, confused and apraxic. Mod A UB dressing, max A LB. Retropulsive when fatigued. Continue Physical and occupational therapy to optimize mobility and activities of daily living. * Encephalopathy consistent with a hypoactive delirium. Improving; increasingly interactive but disoriented and confused; minimal intermittent social language, otherwise very impaired re language and cognition. Brain MRI 09/10/16, result d/w Neurology Dr. Cano: w/out irreversible ischemic change; still with diffuse SAH and atrophy. Labs 09/05 evening not c/w infectious or metabolic etiology for obtundation. Continue COIN TELLER. * Nutritional risk with unwillingness to take p.o. nutrition, hydration, and medications possibly due to encephalopathy. Continue tube feedings and hydration per tube. Dry Plasterer Helper consult. BMP today re hydration status. nurse notes cloudy urine. * Thrush resolved after single dose fluconazole 09/09/16. Participating in mouth care. Continues with minimal PO nutrition. * UTI being treated with Bactrim. C&S with corral-sensitive E. coli. Recheck CBC re leukocytosis. Chronic/stable conditions: * She no longer appears to have expressive and receptive aphasia. No focal L temporal lesion. * Intermittently elevated blood pressure. Resolved. * Elevated troponin in the hospital. It was concluded that she did not actually suffer a myocardial infarction. However, with a troponin leak it is likely that she has coronary artery disease, with exacerbation due to sympathetic stiluation caused by SAH. * Possible CHF, with elevated BNP in the hospital and diastolic dysfunction on echocardiogram. Monitor fluid and cardiorespiratory status. * Given her obtundation and immobility, I will initiate a prophylactic dose enoxaparin. If her mobility improves, I will have a low threshold to discontinue it. * Barajas catheter. Improved alertness and mobility: d/c'd 09/13/16. Tentative discharge date 09/27/16. Disposition to depend on level of support available at home. Family conference 09/23/16. 09/18/16 10:21 Subjective: No complaints. She reports that she finally fell asleep last night because I was exhausted. She is vague about what activity she might have been involved in yesterday at left resulted on questioning for incision she reports that she is currently in [place]. She denies fevers chills cough dyspnea dysuria or urinary frequency. Nurse reports that she had urinary retention overnight with a postvoid residual in the 400s and had straight catheterization x1 she also was noted to have increased agitation yesterday during the day and overnight is requiring more assistance for instance to transfer to the bathroom. Objective: Vital Signs Temp Pulse Resp BP Pulse Ox 36.6 C 79 18 115/65 93 09/18/16 07:54 09/18/16 07:54 09/18/16 07:54 09/18/16 07:54 09/18/16 07:54 Laboratory Results 09/05/16 18:05 09/05/16 18:05 09/17/16 09/18/16 09/19/16 05:59 05:59 05:59 Intake Total 2320 2160 Output Total 0 875 300 Balance 2320 1285 -300 Physical Exam - Physical Exam General Appearance: WD/WN, alert, no apparent distress Respiratory: normal breath sounds, No crackles, No rhonchi, No wheezing Cardiac/Chest: regular rate, rhythm, No edema Skin: normal color, warm/dry Neuro/Psych: alert, normal mood/affect, cognition abnormalities (Language of confusion), disoriented to place, disoriented to time ICD10 Worksheet Patient Problems: Problems Problem Status Onset Constipation Acute Palliative care encounter Acute Vomiting Acute
[2016-09-18 12:06] LABS: % IMMATURE GRANULYOCYTES 2.1 % (0.0-1.1); ABSOLUTE IMMATURE GRANULOCYTES 0.13 10^3/uL (0.00-0.10); ADD DIFF? NO; ADD MORPH? NO; ADD SCAN? NO; ATYPICAL LYMPHOCYTE FLAG 30 (0-99); FRAGMENT RBC FLAG 0 (0-99); HEMATOCRIT 37.8 % (38.0-47.0); HEMOGLOBIN 12.2 g/dL (12.6-16.3); LEFT SHIFT FLG 30 (0-99); LIPEMIA HEMOLYSIS FLAG 80 (0-99); MEAN CELL HEMOGLOBIN CONCENTR. 32.3 g/dL (32.4-36.7); MEAN CELL VOLUME 99.2 fL (81.5-99.8); PLATELET CLUMPS FLAG 0 (0-99); PLATELET COUNT 356 10^3/uL (150-400); RED BLOOD CELL COUNT 3.81 10^6/uL (4.18-5.33); RED CELL DISTRIBUTION WIDTH 15.7 % (11.5-15.2)
[2016-09-18] MEDS: BETHANECHOL 10 MG TAB TUBE SCH ×3 (12:13→20:09)
[2016-09-18 12:21] LABS: ANION GAP 13 mEq/L (8-16); CALCIUM 9.8 mg/dL (8.5-10.4); CARBON DIOXIDE 23 mEq/l (22-31); CHLORIDE 104 mEq/L (97-110); CREATININE 0.9 mg/dL (0.6-1.0); GLOMERULAR FILTRATION RATE 59; GLUCOSE 107 mg/dL (70-100); POTASSIUM 4.4 mEq/L (3.5-5.2); SODIUM 140 mEq/L (134-144)
[2016-09-18] MEDS: POLYETHYLENE GLYCOL 3350 17 GM PKT TUBE SCH (20:09)
[2016-09-18] MEDS: MELATONIN 3 MG TAB TUBE SCH (20:09)
[2016-09-19] MEDS: BETHANECHOL 10 MG TAB TUBE SCH ×4 (07:26→20:17)
[2016-09-19] MEDS: ENOXAPARIN 30 MG/0.3 ML SYR SC SCH (08:41)
[2016-09-19] MEDS: SULFAMETHOX TUBE SCH (08:41)
[2016-09-19] MEDS: TMP TUBE SCH (08:41)
[2016-09-19] MEDS ORDERED: SENNOSIDES 17.6 MG/10 ML UDL PO PRN (13:02)
--- NOTE | 2016-09-19 13:22 | SOAPPROG ---
SOAP Progress Note Assessment/Plan: Assessment: * Subarachnoid hemorrhage 08/18/16 status post coiling and ventriculostomy placement on 08/19/16 and ventriculostomy removal 08/30/16 with hydrocephalus and pneumocephalus and associated debility. Initial FIM 19 on 09/09/16, improved to 32 as of 09/16/16. Mobility improved; ambulated 200' X 2 4WW. Variable ADLs, poor attention, confused and apraxic. Mod A UB dressing, max A LB. Retropulsive when fatigued. Continue Physical and occupational therapy to optimize mobility and activities of daily living. * Encephalopathy consistent with a hypoactive delirium. Improving; increasingly interactive but disoriented and confused; minimal intermittent social language, otherwise very impaired re language and cognition. Brain MRI 09/10/16, result d/w Neurology Dr. Cano: w/out irreversible ischemic change; still with diffuse SAH and atrophy. Labs 09/05 evening not c/w infectious or metabolic etiology for obtundation. Continue CLINICAL LABORATORY MANAGER. * Nutritional risk with unwillingness to take p.o. nutrition, hydration, and medications possibly due to encephalopathy. Continue tube feedings and hydration per tube. Weigh Tank Operator consult. BMP 09/18/16 not c/w dehydration.. * Thrush resolved after single dose fluconazole 09/09/16. Participating in mouth care. Continues with minimal PO nutrition. * UTI being treated with Bactrim. C&S with corral-sensitive E. coli. Leukocytosis resolved on CBC 09/18/2016. * Anemia. Improving on CBC 09/18/2016. Chronic/stable conditions: * She no longer appears to have expressive and receptive aphasia. No focal L temporal lesion. * Intermittently elevated blood pressure. Resolved. * Elevated troponin in the hospital. It was concluded that she did not actually suffer a myocardial infarction. However, with a troponin leak it is likely that she has coronary artery disease, with exacerbation due to sympathetic stiluation caused by SAH. * Possible CHF, with elevated BNP in the hospital and diastolic dysfunction on echocardiogram. Monitor fluid and cardiorespiratory status. * Given her obtundation and immobility, I will initiate a prophylactic dose enoxaparin. If her mobility improves, I will have a low threshold to discontinue it. * Barajas catheter. Improved alertness and mobility: d/c'd 09/13/16. Tentative discharge date 09/27/16. Disposition to depend on level of support available at home. Family conference 09/23/16. 09/19/16 13:19 Subjective: No complaints. Has language of confusion. When asked about busy vest on the table in front of her she states "you can't have this until you have said your prayers" Objective: Vital Signs Temp Pulse Resp BP Pulse Ox 36.4 C 62 16 108/67 94 09/19/16 07:30 09/19/16 07:30 09/19/16 07:30 09/19/16 07:30 09/19/16 07:30 Laboratory Results 09/18/16 11:05 09/18/16 11:05 09/18/16 09/19/16 09/20/16 05:59 05:59 05:59 Intake Total 2160 2160 20 Output Total 875 1950 200 Balance 1285 210 -180 Physical Exam - Physical Exam General Appearance: WD/WN, alert, no apparent distress Respiratory: normal breath sounds, crackles (few exp RLL), No rhonchi, No wheezing Cardiac/Chest: regular rate, rhythm, No edema Skin: normal color, warm/dry Neuro/Psych: alert, normal mood/affect, disoriented to place, disoriented to time ICD10 Worksheet Patient Problems: Problems Problem Status Onset Constipation Acute Palliative care encounter Acute Vomiting Acute
[2016-09-19] MEDS: MELATONIN 3 MG TAB TUBE SCH (20:18)
[2016-09-19] MEDS: POLYETHYLENE GLYCOL 3350 17 GM PKT TUBE SCH (20:18)
[2016-09-20] MEDS: BETHANECHOL 10 MG TAB TUBE SCH ×4 (06:13→20:59)
[2016-09-20] MEDS: ENOXAPARIN 30 MG/0.3 ML SYR SC SCH (08:19)
--- NOTE | 2016-09-20 11:48 | SOAPPROG ---
SOAP Progress Note Assessment/Plan: Assessment: * Subarachnoid hemorrhage 08/18/16 status post coiling and ventriculostomy placement on 08/19/16 and ventriculostomy removal 08/30/16 with hydrocephalus and pneumocephalus and associated debility. Initial FIM 19 on 09/09/16, improved to 32 as of 09/16/16. Mobility improved; ambulated 200' X 2 4WW. Variable ADLs, poor attention, confused and apraxic. Mod A UB dressing, max A LB. Retropulsive when fatigued. Continue Physical and occupational therapy to optimize mobility and activities of daily living. * Encephalopathy consistent with a hypoactive delirium. Improving; increasingly interactive but disoriented and confused; minimal intermittent social language, otherwise very impaired re language and cognition. Brain MRI 09/10/16, result d/w Neurology Dr. Cano: w/out irreversible ischemic change; still with diffuse SAH and atrophy. Labs 09/05 evening not c/w infectious or metabolic etiology for obtundation. Continue CUSTOMER SOLUTIONS ARCHITECT. * Nutritional risk with unwillingness to take p.o. nutrition, hydration, and medications possibly due to encephalopathy. Continue tube feedings and hydration per tube. Switch Operator consult. BMP 09/18/16 not c/w dehydration.. * Thrush resolved after single dose fluconazole 09/09/16. Participating in mouth care. Continues with minimal PO nutrition. * Anemia. Improving on CBC 09/18/2016. Chronic/stable conditions: * UTI s/p 5 days Bactrim. C&S with corral-sensitive E. coli. Leukocytosis resolved on CBC 09/18/2016. * She no longer appears to have expressive and receptive aphasia. No focal L temporal lesion. * Intermittently elevated blood pressure. Resolved. * Elevated troponin in the hospital. It was concluded that she did not actually suffer a myocardial infarction. However, with a troponin leak it is likely that she has coronary artery disease, with exacerbation due to sympathetic stiluation caused by SAH. * Possible CHF, with elevated BNP in the hospital and diastolic dysfunction on echocardiogram. Monitor fluid and cardiorespiratory status. * Given her obtundation and immobility, I will initiate a prophylactic dose enoxaparin. If her mobility improves, I will have a low threshold to discontinue it. * Barajas catheter. Improved alertness and mobility: d/c'd 09/13/16. Tentative discharge date 09/27/16. Disposition to depend on level of support available at home. Family conference 09/23/16. 09/20/16 11:45 Subjective: No complaints. Slept well, no cough or dyspnea, no fevers or chills, no dysuria or urinary frequency. Recalls breakfast in which she had to eat. Reports activity today is going to be making pancakes. Objective: Vital Signs Temp Pulse Resp BP Pulse Ox 36.6 C 62 16 113/53 L 93 09/20/16 07:25 09/20/16 07:25 09/20/16 07:25 09/20/16 07:25 09/20/16 07:25 Laboratory Results 09/18/16 11:05 09/18/16 11:05 09/19/16 09/20/16 09/21/16 05:59 05:59 05:59 Intake Total 2160 400 200 Output Total 1950 600 650 Balance 210 -200 -450 Physical Exam - Physical Exam General Appearance: WD/WN, alert, no apparent distress Respiratory: normal breath sounds, No crackles, No rhonchi, No wheezing Cardiac/Chest: regular rate, rhythm, No edema Skin: normal color, warm/dry Neuro/Psych: no motor/sensory deficits, alert, normal mood/affect, disoriented to place, disoriented to time, other (Able to maintain reorientation to date but not the name of facility after several minutes of distraction) ICD10 Worksheet Patient Problems: Problems Problem Status Onset Constipation Acute Palliative care encounter Acute Vomiting Acute
[2016-09-20] MEDS: MELATONIN 3 MG TAB TUBE SCH (20:59)
[2016-09-20] MEDS: POLYETHYLENE GLYCOL 3350 17 GM PKT TUBE SCH (21:00)
[2016-09-21] MEDS: BETHANECHOL 10 MG TAB TUBE SCH ×4 (06:09→20:44)
[2016-09-21] MEDS: ENOXAPARIN 30 MG/0.3 ML SYR SC SCH (08:06)
--- NOTE | 2016-09-21 11:37 | SOAPPROG ---
SOAP Progress Note Assessment/Plan: Assessment: * Subarachnoid hemorrhage 08/18/16 status post coiling and ventriculostomy placement on 08/19/16 and ventriculostomy removal 08/30/16 with hydrocephalus and pneumocephalus and associated debility. Initial FIM 19 on 09/09/16, improved to 32 as of 09/16/16. Mobility improved; ambulated 200' X 2 4WW. Variable ADLs, poor attention, confused and apraxic. Mod A UB dressing, max A LB. Retropulsive when fatigued. Continue Physical and occupational therapy to optimize mobility and activities of daily living. * Encephalopathy.. Improving; increasingly interactive but disoriented and confused; minimal intermittent social language, otherwise very impaired re language and cognition. Brain MRI 09/10/16, result d/w Neurology Dr. Cano: w/ out irreversible ischemic change; still with diffuse SAH and atrophy. Continue COPIER AND PRINTER FIELD TECHNICIAN. * Nutritional risk with unwillingness to take p.o. nutrition, hydration, and medications possibly due to encephalopathy. Continue tube feedings and hydration per tube. Cleaner Greaser consult. BMP 09/18/16 not c/w dehydration. PO intake improving 09/21/16. * Thrush resolved after single dose fluconazole 09/09/16. Participating in mouth care. Continues with minimal PO nutrition. * Anemia. Improving on CBC 09/18/2016. Chronic/stable conditions: * Hypoactive delirium. Resolved. Labs 09/05 evening not c/w infectious or metabolic etiology for obtundation. Sleeping well and without major fluctuations in alertness or attention. Discontinue melatonin 09/21/2016 as it most likely no longer has any efficacy and she likely has no need for it. * UTI s/p 5 days Bactrim. C&S with corral-sensitive E. coli. Leukocytosis resolved on CBC 09/18/2016. * She no longer appears to have expressive and receptive aphasia. No focal L temporal lesion. * Intermittently elevated blood pressure. Resolved. * Elevated troponin in the hospital. It was concluded that she did not actually suffer a myocardial infarction. However, with a troponin leak it is likely that she has coronary artery disease, with exacerbation due to sympathetic stiluation caused by SAH. * Possible CHF, with elevated BNP in the hospital and diastolic dysfunction on echocardiogram. Monitor fluid and cardiorespiratory status. * Mobility is much improved. Discontinue enoxaparin starting 09/22/2016. * Barajas catheter. Improved alertness and mobility: d/c'd 09/13/16. Tentative discharge date 09/27/16. Disposition to depend on level of support available at home. Family conference 09/23/16. 09/21/16 11:32 Subjective: No complaints. Slept well. Denies pain, fevers, chills, cough, dyspnea. Reports that she ate some of her breakfast; says she had fried meléndez for breakfast. Discussed with nursing and there was no be conserved. She ate approximately 50% of her meal. Objective: Vital Signs Temp Pulse Resp BP Pulse Ox 36.9 C 64 17 134/71 H 93 09/21/16 07:44 09/21/16 07:44 09/21/16 07:44 09/21/16 07:44 09/21/16 07:44 Laboratory Results 09/18/16 11:05 09/18/16 11:05 09/20/16 09/21/16 09/22/16 05:59 05:59 05:59 Intake Total 400 1470 580 Output Total 600 1500 200 Balance -200 -30 380 Physical Exam - Physical Exam General Appearance: WD/WN, alert, no apparent distress Respiratory: normal breath sounds, other (Occasional throat clearing and cough) , No crackles, No rhonchi, No wheezing Cardiac/Chest: regular rate, rhythm, No edema Neuro/Psych: no motor/sensory deficits, alert, normal mood/affect (Observed playing Chloe + Isabel with occupational therapy: Needed much cuing to attend to task and plays cards appropriately; appeared to have intact visual scanning.) ICD10 Worksheet Patient Problems: Problems Problem Status Onset Constipation Acute Palliative care encounter Acute Vomiting Acute
[2016-09-21] MEDS: POLYETHYLENE GLYCOL 3350 17 GM PKT TUBE SCH (20:44)
[2016-09-22] MEDS: BETHANECHOL 10 MG TAB TUBE SCH ×4 (05:51→20:03)
--- NOTE | 2016-09-22 10:58 | SOAPPROG ---
SOAP Progress Note Assessment/Plan: Assessment: * Subarachnoid hemorrhage 08/18/16 status post coiling and ventriculostomy placement on 08/19/16 and ventriculostomy removal 08/30/16 with hydrocephalus and pneumocephalus and associated debility. Initial FIM 19 on 09/09/16, improved to 32 as of 09/16/16. Mobility improved; ambulated 200' X 2 4WW. Variable ADLs, poor attention, confused and apraxic. Mod A UB dressing, max A LB. Retropulsive when fatigued. Continue Physical and occupational therapy to optimize mobility and activities of daily living. * Encephalopathy. Improving; increasingly interactive but disoriented and confused; minimal intermittent social language, otherwise very impaired re language and cognition. Brain MRI 09/10/16, result d/w Neurology Dr. Cano: w/ out irreversible ischemic change; still with diffuse SAH and atrophy. Continue VOCATIONAL NURSING INSTRUCTOR. * Visual processing deficit? Brain MRI 09/09/16 with left parieto-occipital and right occipital subdural hematoma and mild mass effect. Further assessment per Occupational therapy. * Nutritional risk with unwillingness to take p.o. nutrition, hydration, and medications possibly due to encephalopathy. Continue tube feedings and hydration per tube. Wire Rope Sales Representative consult. BMP 09/18/16 not c/w dehydration. PO intake improving since 09/21/16. * Thrush resolved after single dose fluconazole 09/09/16. Participating in mouth care. Continues with minimal PO nutrition. * Anemia. Improving on CBC 09/18/2016. Chronic/stable conditions: * Hypoactive delirium. Resolved. Labs 09/05 evening not c/w infectious or metabolic etiology for obtundation. Sleeping well and without major fluctuations in alertness or attention. Discontinue melatonin 09/21/2016 as it most likely no longer has any efficacy and she likely has no need for it. * UTI s/p 5 days Bactrim. C&S with corral-sensitive E. coli. Leukocytosis resolved on CBC 09/18/2016. * She no longer appears to have expressive and receptive aphasia. No focal L temporal lesion. * Intermittently elevated blood pressure. Resolved. * Elevated troponin in the hospital. It was concluded that she did not actually suffer a myocardial infarction. However, with a troponin leak it is likely that she has coronary artery disease, with exacerbation due to sympathetic stiluation caused by SAH. * Possible CHF, with elevated BNP in the hospital and diastolic dysfunction on echocardiogram. Monitor fluid and cardiorespiratory status. * Mobility is much improved. Discontinue enoxaparin starting 09/22/2016. * Barajas catheter. Improved alertness and mobility: d/c'd 09/13/16. Tentative discharge date 09/27/16. Disposition to depend on level of support available at home. Family conference 09/23/16. 09/22/16 10:54 Subjective: No complaints this morning. Says she slept well. Reports she had a "grand time " last night going to tea. Denies fevers chills, cough, dyspnea, pain. Objective: Vital Signs Temp Pulse Resp BP Pulse Ox 36.8 C 70 17 127/77 H 93 09/22/16 05:57 09/22/16 05:57 09/22/16 05:57 09/22/16 05:57 09/22/16 05:57 Laboratory Results 09/18/16 11:05 09/18/16 11:05 09/21/16 09/22/16 09/23/16 05:59 05:59 05:59 Intake Total 1470 2150 480 Output Total 1500 1300 Balance -30 850 480 Physical Exam - Physical Exam General Appearance: WD/WN, alert, no apparent distress Respiratory: normal breath sounds, No crackles, No rhonchi, No wheezing Cardiac/Chest: regular rate, rhythm, No edema Skin: normal color, warm/dry Neuro/Psych: no motor/sensory deficits, alert, normal mood/affect, abnormal gait (Mild ataxia and LOB to L, self-corrected), other (Unable to identify horses in a picture. Able to read signs on the wall.) ICD10 Worksheet Patient Problems: Problems Problem Status Onset Constipation Acute Palliative care encounter Acute Vomiting Acute
[2016-09-22] MEDS: POLYETHYLENE GLYCOL 3350 17 GM PKT TUBE SCH (20:03)
[2016-09-23] MEDS: BETHANECHOL 10 MG TAB TUBE SCH ×4 (06:24→21:12)
--- NOTE | 2016-09-23 09:39 | SOAPPROG ---
SOAP Progress Note Assessment/Plan: Assessment: * Subarachnoid hemorrhage 08/18/16 status post coiling and ventriculostomy placement on 08/19/16 and ventriculostomy removal 08/30/16 with hydrocephalus and pneumocephalus and associated debility. Initial FIM 19 on 09/09/16, improved to 27 as of 09/16/16, to 47 as of 09/23/16. Mobility improved; ambulated 500' BITUMASTIC APPLIER. Did 12 stairs with cues. Variable ADLs from max A to needing only cues. Continue Physical and occupational therapy to optimize mobility and activities of daily living. * Encephalopathy/dementia. Improving; increasingly interactive but disoriented and confused; minimal intermittent social language, otherwise very impaired re language and cognition. Brain MRI 09/10/16, result d/w Neurology Dr. Cano: w/ out irreversible ischemic change; still with diffuse SAH and atrophy. Continue CALL CENTER SUPPORT CONSULTANT. * Visual processing deficit? Brain MRI 09/09/16 with left parieto-occipital and right occipital subdural hematoma and mild mass effect. Further assessment per Occupational therapy but inadequatecognitive function for testing. * Nutritional risk with unwillingness to take p.o. nutrition, hydration, and medications possibly due to encephalopathy. Continue tube feedings and hydration per tube. Door Closer consult. BMP 09/18/16 not c/w dehydration. PO intake improving since 09/21/16. * Anemia. Improving on CBC 09/18/2016. Chronic/stable conditions: * Thrush resolved after single dose fluconazole 09/09/16. Participating in mouth care. * Hypoactive delirium. Resolved. Labs 09/05 evening not c/w infectious or metabolic etiology for obtundation. Sleeping well and without major fluctuations in alertness or attention. Discontinue melatonin 09/21/2016 as it most likely no longer has any efficacy and she likely has no need for it. * UTI s/p 5 days Bactrim. C&S with corral-sensitive E. coli. Leukocytosis resolved on CBC 09/18/2016. * She no longer appears to have expressive and receptive aphasia. No focal L temporal lesion. * Intermittently elevated blood pressure. Resolved. * Elevated troponin in the hospital. It was concluded that she did not actually suffer a myocardial infarction. However, with a troponin leak it is likely that she has coronary artery disease, with exacerbation due to sympathetic stiluation caused by SAH. * Possible CHF, with elevated BNP in the hospital and diastolic dysfunction on echocardiogram. Monitor fluid and cardiorespiratory status. * Mobility is much improved. Discontinue enoxaparin starting 09/22/2016. * Barajas catheter. Improved alertness and mobility: d/c'd 09/13/16. Attended staffing, 15 minutes. Discussed with case management, nursing, PT, OT , speech therapy. Continues to need 24 hour care and requiring tube feeds Tentative discharge date 09/27/16. Disposition to depend on level of support available at home. Family conference 09/23/17. 09/23/16 12:13 Subjective: No complaints this morning. Reports she slept well. When asked about breakfast , she reports that it was very good. When asked what was served, she replies food. She denies fevers, chills, cough, dyspnea. She is not in pain. Objective: Vital Signs Temp Pulse Resp BP Pulse Ox 37.0 C 71 16 125/75 H 94 09/23/16 06:44 09/23/16 06:44 09/23/16 06:44 09/23/16 06:44 09/23/16 06:44 Laboratory Results 09/18/16 11:05 09/18/16 11:05 09/22/16 09/23/16 09/24/16 05:59 05:59 05:59 Intake Total 2150 1240 Output Total 1300 Balance 850 1240 - Time Spent With Patient Time Spent With Patient: Greater than 35 minutes 4 times a day, including more than 50% of time in coordination of care during staffing meeting. Physical Exam - Physical Exam General Appearance: WD/WN, alert, no apparent distress Respiratory: normal breath sounds, No crackles, No rhonchi, No wheezing Cardiac/Chest: regular rate, rhythm, No edema Skin: normal color, warm/dry Neuro/Psych: no motor/sensory deficits, alert, normal mood/affect, disoriented to place, disoriented to time, other (Unable to fasten velcro strap on shoe.) ICD10 Worksheet Patient Problems: Problems Problem Status Onset Constipation Acute Palliative care encounter Acute Vomiting Acute
[2016-09-23] MEDS: POLYETHYLENE GLYCOL 3350 17 GM PKT TUBE SCH (21:12)
[2016-09-24] MEDS: BETHANECHOL 10 MG TAB TUBE SCH ×4 (05:31→20:13)
[2016-09-24] MEDS: POLYETHYLENE GLYCOL 3350 17 GM PKT TUBE SCH (13:11)
--- NOTE | 2016-09-24 13:37 | SOAPPROG ---
SOAP Progress Note Assessment/Plan: Assessment: * Subarachnoid hemorrhage 08/18/16 status post coiling and ventriculostomy placement on 08/19/16 and ventriculostomy removal 08/30/16 with hydrocephalus and pneumocephalus and associated debility. Initial FIM 19 on 09/09/16, improved to 27 as of 09/16/16, to 47 as of 09/23/16. Mobility improved; ambulated 500' LABORER FRYER FARM. Did 12 stairs with cues. Variable ADLs from max A to needing only cues. Continue Physical and occupational therapy to optimize mobility and activities of daily living. * Encephalopathy/dementia. Improving; increasingly interactive but disoriented and confused; minimal intermittent social language, otherwise very impaired re language and cognition. Brain MRI 09/10/16, result d/w Neurology Dr. Cano: w/ out irreversible ischemic change; still with diffuse SAH and atrophy. Continue SEARCH STRATEGIST. * Likely cellulitis at PEG site. Tenderness and what appears to be a purulent discharge. We will treat with cephalexin for 5 days; considered discontinuation if symptoms resolve sooner. * Visual processing deficit? Brain MRI 09/09/16 with left parieto-occipital and right occipital subdural hematoma and mild mass effect. Further assessment per Occupational therapy but inadequate cognitive function for testing. * Nutritional risk with unwillingness to take p.o. nutrition, hydration, and medications possibly due to encephalopathy. Continue tube feedings and hydration per tube. Dental Assistant Teacher consult. BMP 09/18/16 not c/w dehydration. PO intake improving since 09/21/16. * Anemia. Improving on CBC 09/18/2016. Chronic/stable conditions: * Thrush resolved after single dose fluconazole 09/09/16. Participating in mouth care. * Hypoactive delirium. Resolved. Labs 09/05 evening not c/w infectious or metabolic etiology for obtundation. Sleeping well and without major fluctuations in alertness or attention. Discontinue melatonin 09/21/2016 as it most likely no longer has any efficacy and she likely has no need for it. * UTI s/p 5 days Bactrim. C&S with corral-sensitive E. coli. Leukocytosis resolved on CBC 09/18/2016. * She no longer appears to have expressive and receptive aphasia. No focal L temporal lesion. * Intermittently elevated blood pressure. Resolved. * Elevated troponin in the hospital. It was concluded that she did not actually suffer a myocardial infarction. However, with a troponin leak it is likely that she has coronary artery disease, with exacerbation due to sympathetic stiluation caused by SAH. * Possible CHF, with elevated BNP in the hospital and diastolic dysfunction on echocardiogram. Monitor fluid and cardiorespiratory status. * Mobility is much improved. Discontinue enoxaparin starting 09/22/2016. * Barajas catheter. Improved alertness and mobility: d/c'd 09/13/16. Attendant family conference, 30 min. and son present. Continues to need 24 hour care and requiring tube feeds burden of care is more than can provide. [facility]. Discharge date . 09/24/16 13:34 Subjective: No complaints. Denies abdominal pain. No fevers, chills, cough, dyspnea. Nurse noted abdominal pain this morning which has been relieved after moving her bowels and voiding. Nurses also note discharge around the PEG tube site. Objective: Vital Signs Temp Pulse Resp BP Pulse Ox 36.2 C 70 18 100/60 93 09/23/16 18:36 09/24/16 08:13 09/24/16 08:13 09/24/16 08:13 09/24/16 08:13 Laboratory Results 09/18/16 11:05 09/18/16 11:05 09/23/16 09/24/16 09/25/16 05:59 05:59 05:59 Intake Total 1240 2295 455 Output Total 500 500 Balance 1240 1795 -45 - Time Spent With Patient Time Spent With Patient: Greater than 35 minutes 4 times a day, including more than 50% of time in coordination of care and counseling during family meeting. Physical Exam - Physical Exam General Appearance: WD/WN, alert, no apparent distress Respiratory: normal breath sounds, No crackles, No rhonchi, No wheezing Cardiac/Chest: regular rate, rhythm, No edema Abdomen: normal bowel sounds, non-tender, soft, other (tenderness with manipulation of PEG tube. White discharge at tube site.), No distended Neuro/Psych: no motor/sensory deficits, alert, normal mood/affect, cognition abnormalities (Does not recognize examiner.), disoriented to place, disoriented to time ICD10 Worksheet Patient Problems: Problems Problem Status Onset Constipation Acute Palliative care encounter Acute Vomiting Acute
[2016-09-24] MEDS: CEPHALEXIN 125 MG/5 ML TUBE SCH ×2 (17:18→23:36)
[2016-09-25] MEDS: BETHANECHOL 10 MG TAB TUBE SCH ×4 (05:27→20:29)
[2016-09-25] MEDS: CEPHALEXIN 125 MG/5 ML TUBE SCH ×4 (05:28→23:53)
--- NOTE | 2016-09-25 11:35 | SOAPPROG ---
SOAP Progress Note Assessment/Plan: Assessment: * Subarachnoid hemorrhage 08/18/16 status post coiling and ventriculostomy placement on 08/19/16 and ventriculostomy removal 08/30/16 with hydrocephalus and pneumocephalus and associated debility. Initial FIM 19 on 09/09/16, improved to 27 as of 09/16/16, to 47 as of 09/23/16. 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 Did 12 stairs with cues. Variable ADLs from max A to needing only cues. Continue Physical and occupational therapy to optimize mobility and activities of daily living. * Encephalopathy/dementia. Improving; increasingly interactive but disoriented and confused; minimal intermittent social language, otherwise very impaired re language and cognition. Brain MRI 09/10/16, result d/w Neurology Dr. Cano: w/ out irreversible ischemic change; still with diffuse SAH and atrophy. Continue CAD SPECIALIST. * Likely cellulitis at PEG site. Tenderness and what appears to be a purulent discharge. We will treat with cephalexin for 5 days starting 09/24/16; considered discontinuation if symptoms resolve sooner. * Visual processing deficit? Brain MRI 09/09/16 with left parieto-occipital and right occipital subdural hematoma and mild mass effect. Further assessment per Occupational therapy but inadequate cognitive function for testing. * Nutritional risk with unwillingness to take p.o. nutrition, hydration, and medications possibly due to encephalopathy. Continue tube feedings and hydration per tube. [employer] consult. BMP 09/18/16 not c/w dehydration. PO intake improving since 09/21/16. * Anemia. Improving on CBC 09/18/2016. Chronic/stable conditions: * Thrush resolved after single dose fluconazole 09/09/16. Participating in mouth care. * Hypoactive delirium. Resolved. Labs 09/05 evening not c/w infectious or metabolic etiology for obtundation. Sleeping well and without major fluctuations in alertness or attention. Discontinue melatonin 09/21/2016 as it most likely no longer has any efficacy and she likely has no need for it. * UTI s/p 5 days Bactrim. C&S with corral-sensitive E. coli. Leukocytosis resolved on CBC 09/18/2016. * She no longer appears to have expressive and receptive aphasia. No focal L temporal lesion. * Intermittently elevated blood pressure. Resolved. * Elevated troponin in the hospital. It was concluded that she did not actually suffer a myocardial infarction. However, with a troponin leak it is likely that she has coronary artery disease, with exacerbation due to sympathetic stiluation caused by SAH. * Possible CHF, with elevated BNP in the hospital and diastolic dysfunction on echocardiogram. Monitor fluid and cardiorespiratory status. * Mobility is much improved. Discontinue enoxaparin starting 09/22/2016. * Barajas catheter. Improved alertness and mobility: d/c'd 09/13/16. Continues to need 24 hour care and requiring tube feeds burden of care is more than can provide. Plan for discharge to group home facility. Discharge date 09/27/16. 09/25/16 11:34 Subjective: Pleasantly confused. Reports that her morning has been "marvelous." Denies fevers, chills, cough, dyspnea. Cannot recall any particular events of the morning. Objective: Vital Signs Temp Pulse Resp BP Pulse Ox 36.4 C 70 18 136/78 H 92 09/25/16 05:58 09/25/16 05:58 09/25/16 05:58 09/25/16 06:35 09/25/16 05:58 Laboratory Results 09/18/16 11:05 09/18/16 11:05 09/24/16 09/25/16 09/26/16 05:59 05:59 05:59 Intake Total 2295 2055 Output Total 500 800 400 Balance 1795 1255 -400 Physical Exam - Physical Exam General Appearance: WD/WN, alert, no apparent distress Respiratory: normal breath sounds, No crackles, No rhonchi, No wheezing Cardiac/Chest: regular rate, rhythm, No edema Skin: normal color, warm/dry Neuro/Psych: no motor/sensory deficits, alert, normal mood/affect, disoriented to place, disoriented to time ICD10 Worksheet Patient Problems: Problems Problem Status Onset Constipation Acute Palliative care encounter Acute Vomiting Acute
[2016-09-25] MEDS: POLYETHYLENE GLYCOL 3350 17 GM PKT TUBE SCH (20:29)
[2016-09-26] MEDS: BETHANECHOL 10 MG TAB TUBE SCH ×4 (05:09→20:55)
[2016-09-26] MEDS: CEPHALEXIN 125 MG/5 ML TUBE SCH ×4 (05:09→23:34)
--- NOTE | 2016-09-26 14:00 | SOAPPROG ---
SOAP Progress Note Assessment/Plan: Assessment: * Subarachnoid hemorrhage 08/18/16 status post coiling and ventriculostomy placement on 08/19/16 and ventriculostomy removal 08/30/16 with hydrocephalus and pneumocephalus and associated debility. Initial FIM 19 on 09/09/16, improved to 27 as of 09/16/16, to 47 as of 09/23/16. 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 Did 12 stairs with cues. Variable ADLs from max A to needing only cues. Continue Physical and occupational therapy to optimize mobility and activities of daily living. * Encephalopathy/dementia. Stable. Increasingly interactive but disoriented and confused; minimal intermittent social language, otherwise very impaired re language and cognition. Brain MRI 09/10/16, result d/w Neurology Dr. Cano: w/ out irreversible ischemic change; still with diffuse SAH and atrophy. Continue CAMPUS AIDE. * Likely cellulitis at PEG site. Tenderness and what appears to be a purulent discharge. We will treat with cephalexin for 5 days starting 09/24/16; considered discontinuation if symptoms resolve sooner. * Visual processing deficit? Brain MRI 09/09/16 with left parieto-occipital and right occipital subdural hematoma and mild mass effect. Further assessment per Occupational therapy but inadequate cognitive function for testing. * Nutritional risk with unwillingness to take p.o. nutrition, hydration, and medications possibly due to encephalopathy. Continue tube feedings and hydration per tube. Drug Abuse Worker consult. BMP 09/18/16 not c/w dehydration. PO intake improving since 09/21/16. * Anemia. Improving on CBC 09/18/2016. Chronic/stable conditions: * Thrush resolved after single dose fluconazole 09/09/16. Participating in mouth care. * Hypoactive delirium. Resolved. Labs 09/05 evening not c/w infectious or metabolic etiology for obtundation. Sleeping well and without major fluctuations in alertness or attention. Discontinue melatonin 09/21/2016 as it most likely no longer has any efficacy and she likely has no need for it. * UTI s/p 5 days Bactrim. C&S with corral-sensitive E. coli. Leukocytosis resolved on CBC 09/18/2016. * She no longer appears to have expressive and receptive aphasia. No focal L temporal lesion. * Intermittently elevated blood pressure. Resolved. * Elevated troponin in the hospital. It was concluded that she did not actually suffer a myocardial infarction. However, with a troponin leak it is likely that she has coronary artery disease, with exacerbation due to sympathetic stimulation caused by SAH. * Possible CHF, with elevated BNP in the hospital and diastolic dysfunction on echocardiogram. Monitor fluid and cardiorespiratory status. * Mobility is much improved. Discontinue enoxaparin starting 09/22/2016. * Barajas catheter. Improved alertness and mobility: d/c'd 09/13/16. Continues to need 24 hour care and requiring tube feeds burden of care is more than can provide. Plan for discharge to care home facility. Discharge date 09/27/16. 09/26/16 14:00 Subjective: No complaints. Denies abdominal pain, difficulty urinating or dysuria, fevers, chills or flank pain. Nurse reports normal bowel movements. She has urinary retention with residuals greater than 300 cc. Objective: Vital Signs Temp Pulse Resp BP Pulse Ox 36.0 C 81 12 112/72 92 09/26/16 06:23 09/26/16 06:23 09/26/16 06:23 09/26/16 06:23 09/26/16 06:23 Laboratory Results 09/18/16 11:05 09/18/16 11:05 09/25/16 09/26/16 09/27/16 05:59 05:59 05:59 Intake Total 2054 2019 Output Total 800 1650 225 Balance 1255 370 -225 Physical Exam - Physical Exam General Appearance: WD/WN, alert, no apparent distress Respiratory: No respiratory distress, No accessory muscle use Abdomen: normal bowel sounds, non-tender, soft, other (PEG site with white exudate, non-tender), No distended Skin: normal color, warm/dry Neuro/Psych: no motor/sensory deficits, alert, normal mood/affect, disoriented to place, disoriented to time ICD10 Worksheet Patient Problems: Problems Problem Status Onset Constipation Acute Palliative care encounter Acute Vomiting Acute
[2016-09-26] MEDS: POLYETHYLENE GLYCOL 3350 17 GM PKT TUBE SCH (20:55)
[2016-09-27] MEDS: BETHANECHOL 10 MG TAB TUBE SCH ×3 (05:26→15:10)
[2016-09-27] MEDS: CEPHALEXIN 125 MG/5 ML TUBE SCH ×2 (05:26→11:54)
[2016-09-27 08:28] VITALS: RESP 18
[2016-09-27 11:28] LABS: ANION GAP 13 mEq/L (8-16); CALCIUM 9.9 mg/dL (8.5-10.4); CARBON DIOXIDE 24 mEq/l (22-31); CHLORIDE 106 mEq/L (97-110); CREATININE 0.5 mg/dL (0.6-1.0); GLOMERULAR FILTRATION RATE > 60; GLUCOSE 90 mg/dL (70-100); POTASSIUM 4.7 mEq/L (3.5-5.2); SODIUM 143 mEq/L (134-144)
[2016-09-27 13:20] LABS: % IMMATURE GRANULYOCYTES 1.4 % (0.0-1.1); ABSOLUTE IMMATURE GRANULOCYTES 0.08 10^3/uL (0.00-0.10); ADD DIFF? NO; ADD MORPH? NO; ADD SCAN? NO; ATYPICAL LYMPHOCYTE FLAG 60 (0-99); FRAGMENT RBC FLAG 0 (0-99); HEMATOCRIT 38.5 % (38.0-47.0); HEMOGLOBIN 12.6 g/dL (12.6-16.3); LEFT SHIFT FLG 20 (0-99); LIPEMIA HEMOLYSIS FLAG 80 (0-99); MEAN CELL HEMOGLOBIN 32.3 pg (27.9-34.1); MEAN CELL HEMOGLOBIN CONCENTR. 32.7 g/dL (32.4-36.7); MEAN CELL VOLUME 98.7 fL (81.5-99.8); MEAN PLATELET VOLUME 10.7 fL (8.7-11.7); PLATELET CLUMPS FLAG 10 (0-99); PLATELET COUNT 320 10^3/uL (150-400); RED CELL DISTRIBUTION WIDTH 15.5 % (11.5-15.2)
[2016-09-27 13:37] VITALS: BP 116/64; PULSE 75; TEMP 97.9; O2SAT 93
--- NOTE | 2016-09-27 15:43 | PDOREHIP ---
Admission [facility] - Admission - 3 Day Assessment Period Admission Date/Day 1: 09/05/16 Day 2: 09/06/16 Day 3: 09/07/16 Discharge [facility] - Discharge - 3 Day Assessment Period 2 Days Prior to Anticipated Discharge Date: 09/25/16 1 Day Prior to Anticipated Discharge Date: 09/26/16 Anticipated Discharge Date: 09/27/16 - Discharge Skin Conditions Unhealed Pressure Ulcer (1 or more/Stage 1 or >)-Discharge: 0. No
--- NOTE | 2016-09-28 05:22 | GDS ---
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 OTHER DISCHARGE DIAGNOSES: 1. PEG tube site cellulitis. 2. Anorexia. CONSULTATIONS: She was seen in consultation by neurologist, Dr. Cano. PROCEDURES: She had an MRI of the brain done. COMPLICATIONS: There were none. HISTORY AND HOSPITAL COURSE: This patient was admitted to [facility] inpatient rehabilitation from [facility]. She had been treated there for a subarachnoid hemorrhage from the anterior communicating artery. 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 She was admitted there on 08/18/2016. She came to rehabilitation on 09/05/2016. She was initially obtunded on admission. She had a repeat head CT, which showed no change in findings from the hospital. There were bilateral subacute subdural hematomas in the left parieto-occipital convexity and in the right occipital lobe. She was quite debilitated initially with a functional independence measure of 19, which is consistent with needing assistance in all mobility activities and activities of daily living. Due to her pronounced debility, a brain MRI was obtained for more information regarding her prognosis , which showed moderate diffuse atrophy, left parieto-occipital and right occipital subacute subdural hematomas with mild mass effect, diffuse subarachnoid hemorrhage throughout the bilateral cerebral hemispheres, but no infarct, no herniation, midline shift, or sinusitis. She was subsequently seen in consultation by neurologist, Dr. Cano, who thought that there was no irreversible damage to her brain done from the hemorrhage. She continued to have gradual improvement with increase in Functional [place] Measure eventually to 47 as of 09/23/2016. 47 is still consistent with detention level care. She had considerable improvement in her mobility and was able to ambulate 500 feet with hand-held assist. She was able to climb and descend 12 stairs with cues. Regarding activities of daily living, she was quite variable from needing only cues to needing maximal assistance. Regarding her cognitive impairment, she became increasingly interactive but remained disoriented and confused. She had minimal intermittent social language , but otherwise was very impaired regarding language and cognition. She remained anorexic taking no more than 250 cc in a day of oral nutrition, and she had PEG tube feedings. She developed what appeared to be a cellulitis at the PEG tube site with purulent discharge and some discomfort. She was treated with cephalexin on 09/24/2016. She developed urinary retention towards the end of her stay. She was begun on bethanechol 10 mg q.i.d., which was subsequently titrated to 20 mg q.i.d. Overnight prior to discharge, she was noted to have a residual of 600 cc on bladder scan and required catheterization. She was, however, subsequently able to void. On the day of discharge, she continued to be variable and had some decline in function, needing extra assistance and extra time for activities of daily living. A CBC and a CMP were obtained, which showed no metabolic or infectious complications and showed resolution of anemia. On the day of discharge, her white blood cell count was 5.79, hemoglobin was 12.6, hematocrit was 38.5, platelet count was 32, and serum chemistry on the day of discharge showed normal renal function and electrolytes. Her creatinine was 0.5. PHYSICAL EXAMINATION: VITAL SIGNS: On the day of discharge, blood pressure is 116/64, heart rate is 75, respiratory rate is 18, oxygen saturation is 93% on room air, temperature is 36.6 degrees centigrade. GENERAL: This is a well- nourished, well-developed, elderly woman, sitting in a wheelchair, cooperative, and in no acute distress. HEART: Has a regular rate and rhythm with no murmurs , rubs, or gallops. LUNGS: Clear to auscultation bilaterally. ABDOMEN: Soft , nontender, mildly distended with normoactive bowel sounds. PEG tube site is without erythema or purulence but is mildly uncomfortable to manipulation of the tube. EXTREMITIES: There is no cyanosis, clubbing, or edema. NEUROLOGIC: She is alert. She is oriented to self only. She has social language but is unable to elaborate and speaks in very brief and incomplete sentences. CONDITION UPON DISCHARGE: Fair. ACTIVITY: Ad margarito but she needs supervision for safety with all aspects of mobility and assistance for all activities of daily living. DIET: Regular and she has supplemental tube feedings. She receives Jevity 1.5 by PEG tube with a bolus of 220 mL 5 times a day at 0600, 1000, 1400, 1800, and 2200. She receives 80 mL tube flush before and after each feeding. DATE OF NEXT APPOINTMENT: She will follow up with her new primary care provider at [facility] within a week of discharge. MEDICATIONS AT DISCHARGE: 1. Bethanechol 20 mg per tube q.i.d. 2. Cephalexin 500 mg per tube q.6 hours through September 29. 3. [place]-3 fatty acids 1000 mg per tube q. day. 4. Multivitamin 1 each per tube q. day. 5. Calcium carbonate 500 mg per tube b.i.d. 6. Polyethylene glycol 17 g per tube q.h.s. 7. Acetaminophen 650 mg per tube q.4 hours p.r.n. ISSUES TO BE ADDRESSED AT FOLLOWUP: 1. Functional status and cognitive status. She will continue physical and occupational therapies, as well as speech therapy at the [facility], and she can follow up with her new attending physician there regarding her progress. 2. Urinary retention. She intermittently requires catheterization. At other times she is able to void adequately. Advised extra time for voiding. Advised continued bladder scan on a p.r.n. basis. Advised scheduled toileting, and if she continues to have retention, will consider referral to Urology. 3. Code status is Do Not Resuscitate. Copy requested to: [facility] PÉERZ Ladd Attention: New attending for patient Greater than 30 minutes were spent on this discharge including medication reconciliation and coordination of care. /[id number]/MODL MTDD
== END 2016-09-27 15:30 | DRG 949 ==
LOC: BREH 16:20
PROVIDERS: ADMIT Internal Medicine; ATTEND Internal Medicine
PROC: F0636ZZ Communicative/Cognitive Integration Skills Treatment of Neurological System - Whole Body (ICD-10-PCS; principal; 2016-09-05)
PROC: F08Z7ZZ Vocational Activities and Functional Community or Work Reintegration Skills Treatment (ICD-10-PCS; principal; 2016-09-05)
PROC: F07M3ZZ Motor Function Treatment of Musculoskeletal System - Whole Body (ICD-10-PCS; principal; 2016-09-05)
DX: Z48.811 Encounter for surgical aftercare following surgery on the nervous system (principal); G93.49 Other encephalopathy; I50.31 Acute diastolic (congestive) heart failure; L03.221 Cellulitis of neck; K94.22 Gastrostomy infection; I69.020 Aphasia following nontraumatic subarachnoid hemorrhage; R33.9 Retention of urine, unspecified; Z66 Do not resuscitate
CPT/HCPCS: 92507-GN; 92522-GN; 92526-GN; 92610-GN; 97110-GO; 97110-GP; 97112-GP; 97116-GP; 97162-GP; 97167-GO; 97530-GO; 97530-GP; 97532-GO; 97535-GO; 99366-GO; J1650; J2250; J3010

== ENCOUNTER 2016-12-09 11:34 | Emergency (ER) | payer OTHER ==
[2016-12-09 11:38] VITALS: RESP 18; TEMP 98.6
[2016-12-09 12:55] VITALS: O2SAT 92
--- NOTE | 2016-12-09 14:31 | EDPHY ---
H & P Time Seen by Provider: 12/09/16 13:22 HPI/ROS: Chief complaint. Clogged feeding tube HPI. Patient is an 89-year-old female who receives medication and feedings through a PEG tube. It has been working well until this morning and which time it is clogged. It was placed 2 months ago. 2 months ago patient had an intracranial hemorrhage. She really does not take any feedings by mouth. She is nonverbal. There is no sense of abdominal pain per her her son. No vomiting. ROS Constitutional. no fever/chills, no weakness Eyes. no problems with vision ENT. no sore throat, no nasal drainage Cardiovascular. no chest pain Respiratory. no shortness of breath, no cough Abdominal. no abdominal pain, no nausea/vomiting, no diarrhea. PEG tube not functioning . no problems urinating MS. no calf pain/swelling, no neck/back pain, no joint pain Skin. no rash Lymph. no swollen glands Neuro. no headache, no dizziness, no difficulty walking or with speech Past Medical/Surgical History: Subarachnoid hemorrhage, cholecystectomy Social History: , nonsmoker, no alcohol Smoking Status: Former smoker Physical Exam: General Appearance: Alert well-developed female mild distress vital signs are stable Eyes: Pupils equal and round no pallor or injection. ENT, Mouth: Mucous membranes are moist. Respiratory: There are no retractions, lungs are clear to auscultation. Cardiovascular: Regular rate and rhythm. Gastrointestinal: Abdomen is soft and nontender, no masses, bowel sounds normal. PEG tube in place Neurological: Awake and alert, sensory and motor exams grossly normal. Skin: Warm and dry, no rashes. Musculoskeletal: Neck is supple nontender. Extremities symmetrical, full range of motion. Psychiatric: Persistent vegetative state and nonverbal Constitutional: Initial Vital Signs Temperature (C) 37.0 C 12/09/16 11:37 Heart Rate 91 12/09/16 11:37 Respiratory Rate 18 12/09/16 11:37 Blood Pressure 149/74 H 12/09/16 11:37 O2 Sat (%) 91 L 12/09/16 11:37 O2 Delivery Mode Room Air Allergies/Adverse Reactions: No Known Allergies Allergy (Verified 08/18/16 00:18) Home Medications: Medication Instructions Recorded Calcium Carbonate [Oyster Shell 500 mg PO BID 08/18/16 Calcium 500 mg (*)] Multivitamins [Multivitamin (*)] 1 each PO DAILY 08/18/16 [place]-3 Fatty Acids [Fish Oil 1000 1,000 mg PO DAILY 08/18/16 mg (*)] Polyethylene Glycol 3350 [Miralax 17 gm PO HS pkt 09/05/16 17 gm (*)] Acetaminophen [Tylenol 325mg (*)] 650 mg TUBE Q4HRS PRN #0 tab 09/26/16 Bethanechol [Urecholine (*)] 20 mg TUBE QID #0 tab 09/26/16 Cephalexin [Keflex Oral Liquid] 500 mg TUBE Q6HRS #0 bottle 09/26/16 Medical Decision Making Procedures: Procedure feeding tube replacement ED Course/Re-evaluation: We tried to flush the PEG tube but are unable To get to work. We found a similar size 20 [place] catheter feeding tube. I checked the balloon prior to placement. The old with nonfunctioning PEG tube is removed and new 1 placed without difficulty. The balloon is inflated with 7 mL of saline. It is checked and flushes without difficulty Patient, her , her son and I discussed treatment plan including criteria for return importance of follow-up further evaluation. They expressed understanding Differential Diagnosis: Nonfunctioning PEG tube after 2 months of use. We were unable to flush it. It is now replaced and working fine Departure - Departure Disposition: Home, Routine, Self-Care Clinical Impression: PEG tube malfunction Condition: Good Instructions: How to Use and Care for Your PEG Tube (ED) Additional Instructions: Normal use of the PEG tube. Return for further problems. Referrals: Patient,NotPresent [Primary Care Provider] - As per Instructions
[2016-12-09 15:09] VITALS: BP 124/100; PULSE 72
== END 2016-12-09 16:42 | disposition home or self-care (01) ==
LOC: EDUNIT#
PROC: 0DP63UZ Removal of Feeding Device from Stomach, Percutaneous Approach (ICD-10-PCS; principal; 2016-12-09)
PROC: 0DH63UZ Insertion of Feeding Device into Stomach, Percutaneous Approach (ICD-10-PCS; principal; 2016-12-09)
DX: K94.23 Gastrostomy malfunction (principal); Z87.891 Personal history of nicotine dependence